=== PATIENT | male | born 1970 | race African-American/Black ===

== ENCOUNTER 2017-12-07 03:25 | Inpatient (IN) | payer OTHER ==
[~2017-12-07] VITALS: Ht 175.3 cm; Wt 189.1 kg
--- NOTE | 2017-12-07 03:45 | NUR ---
PT BBRA C/C OF "SOB X A FEW WEEKS". PT ON NC 4L/M TOP COLLAR BASTER. PT STATES HE IS ON HIS OXYGEN 24HOURS A DAY. PT IS AAOX4. PT STATES HE HAS ON/OFF RESPIRATORY PROBLEMS FOR YEARS NOW. SKIN WNL. RESP EVEN AND UNLABORED. NO S/S OF ACUTE DISTRESS NOTED. PT PLACED ON MONITOR AND POX. PT SAFETY AND COMFORT MEASURES IN PLACE. BEDSIDE FOR EVAL. WILL CONTINUE TO MONITOR PT.
[2017-12-07 04:06] LABS: BASOPHILS % (AUTO) 0.1 % (0.0-2.0); EOSINOPHILS % (AUTO) 1.8 % (0.0-6.0); HEMATOCRIT 35 % (39-51); HEMOGLOBIN 11.1 g/dL (13.5-17.5); LYMPHOCYTES # (AUTO) 0.9 /CMM (0.8-4.8); LYMPHOCYTES % (AUTO) 13.7 % (20.0-44.0); MEAN CORPUSCULAR HGB CONC 32 g/dl (31.0-36.0); MEAN CORPUSCULAR VOLUME 88 fL (80-96); MONOCYTES # (AUTO) 0.7 /CMM (0.1-1.30); MONOCYTES % (AUTO) 10.5 % (2.0-12.0); NEUTROPHILS # (AUTO) 4.7 /CMM (1.8-8.9); NEUTROPHILS % (AUTO) 73.9 % (43.0-81.0); PLATELET COUNT (AUTO) 189 /CMM (150-450); RDW COEFFICIENT OF VARIATION 14.1 (11.5-15.0); RED BLOOD CELL COUNT(AUTO) 3.95 MIL/uL (4.5-6.0); WHITE BLOOD COUNT (AUTO) 6.4 K/uL (4.3-11.0)
[2017-12-07 04:19] LABS: INR 0.97 (0.87-1.13)
[2017-12-07 04:25] LABS: POTASSIUM 3.8 mmol/L (3.5-5.1)
[2017-12-07 04:34] LABS: ALBUMIN 3.3 g/dL (3.4-5.0); BILIRUBIN,DIRECT 0.1 mg/dL (0.0-0.2); BILIRUBIN,TOTAL 0.4 mg/dL (0.2-1.0); TOTAL PROTEIN, SERUM 7.7 g/dL (6.4-8.2)
--- NOTE | 2017-12-07 04:51 | NUR ---
Patient is resting comfortably in bed with eyes closed. Easily aroused. VSS
[2017-12-07 04:56] LABS: TROPONIN I 0.021 ng/mL (0.00-0.056)
[2017-12-07] MEDS ORDERED: LORA10TA7 PO (06:19)
[2017-12-07] MEDS ORDERED: ISOS20TA8 PO (06:19)
[2017-12-07] MEDS ORDERED: BUDE10.2 INH (06:19)
[2017-12-07] MEDS ORDERED: SIME80TA15 PO (06:19)
[2017-12-07] MEDS ORDERED: ACET-73 PO (06:19)
[2017-12-07] MEDS ORDERED: ACET250T3 PO (06:19)
[2017-12-07] MEDS ORDERED: ALPR1TAB2 PO (06:19)
[2017-12-07] MEDS ORDERED: CARV25TA2 PO (06:19)
[2017-12-07] MEDS ORDERED: AMLO2.5T3 PO (06:19)
[2017-12-07] MEDS ORDERED: AMIO200T4 PO (06:19)
[2017-12-07] MEDS ORDERED: HYDR-552 PO (06:19)
[2017-12-07] MEDS ORDERED: ATOR40TA PO (06:19)
[2017-12-07] MEDS ORDERED: FURO40TA5 PO (06:19)
[2017-12-07] MEDS ORDERED: ZOLP10TA2 PO (06:19)
[2017-12-07] MEDS ORDERED: FAMO20TA8 PO (06:19)
[2017-12-07] MEDS ORDERED: LOSA25TA13 PO (06:19)
[2017-12-07] MEDS ORDERED: IPRA3AMP23 IH (06:19)
[2017-12-07] MEDS ORDERED: MONT10TA22 PO (06:19)
--- NOTE | 2017-12-07 06:19 | NUR ---
NO S/S OF DISCOMFORT NOTED. VSS. WILL CONTINUE TO MONITOR PT.
--- NOTE | 2017-12-07 07:10 | NUR ---
report given to mckinley mancera for antonette.
--- NOTE | 2017-12-07 08:23 | NUR ---
REPORT GIVEN TO SHAUNNA KAY FOR DAVIAN
[2017-12-07] MEDS ORDERED: ENOXAPARIN SODIUM 40 MG/0.4 ML DISP.SYRIN SQ SCH ×2 (09:00→09:30)
[2017-12-07] MEDS ORDERED: LEVOFLOXACIN (500MG) 500 MG TABLET PO SCH (09:00)
--- NOTE | 2017-12-07 09:00 | NUR ---
B2B SALES EXECUTIVE OPENING NOTES. PT RECEIVED A&0X3. PT PROVIDED WITH BARIATRIC BED. PT WITH TELE SR 88. PT WITH O2 VIA NC AT 4LPM AND REPORTING SOB AND ORTHOPNEA, SAO2 WNL, LUNGS AUSCULTATED DIMINISHED IN LOWER LOBES AND CRACKLES IN UPPER LEFT. PT REPORTS MODERATE CHEST PAIN, PRN TO BE ADMINISTERED. PT WITH IVC AT L FA INTACT AND SL. PT REFUSING SKIN ASSESSMENT AT THIS TIME, WILL TRY AGAIN AFTER LUNCH. PT ARIELLE BED IN LOWEST LOCKED POSITION IN HIGH [place] AND HARDRAILSX3 AND CALL FREEMAN WITHIN REACH. PT BRIEFED ON TODAY'S POC AND IS WITHOUT CONCERN OR COMPLAINT AT THIS TIME.
[2017-12-07 09:54] LABS: THYROID STIMULATING HORMONE 3.994 uIU/mL (0.358-3.74)
[2017-12-07] MEDS: POTASSIUM CHLORIDE 20 MEQ TAB.PRT.SR PO SCH ×3 (10:02→12:18)
[2017-12-07] MEDS: FUROSEMIDE 40 MG/4 ML VIAL IV SCH ×3 (10:02→17:09)
[2017-12-07] MEDS ORDERED: *INSULIN REGULAR(HUMULIN R)HUM 100 UNIT/ML VIAL SQ PRN (11:30)
[2017-12-07] MEDS ORDERED: DEXTROSE 50%-WATER 50 ML DISP.SYRIN IV PRN (11:30)
[2017-12-07] MEDS: HYDROCODONE/APAP 10/325MG 1 EA TABLET PO PRN ×2 (11:35→17:09)
[2017-12-07] MEDS: BLOOD SUGAR DIAGNOSTIC 1 EACH STRIP VI SCH ×2 (12:18→17:08)
[2017-12-07] MEDS: INSULIN REGULAR, HUMAN 100 UNIT/ML 3 ML VIAL SQ PRN ×2 (12:21→17:13)
--- NOTE | 2017-12-07 12:30 | NUR ---
CAFETERIA CASHIER NOTES. MD EPSTEIN ORDERING D/C AND TRANS TO [facility] PER [facility] CM. REQUESTING CONTINUATION OF ALL MEDS AND NORCO 10/325 Q4 PRN. ORDERS PLACED.
[2017-12-07] MEDS ORDERED: SYMBICORT INH SCH (13:30)
[2017-12-07] MEDS ORDERED: ALPRAZOLAM 1 MG TABLET PO PRN (13:30)
[2017-12-07] MEDS ORDERED: HYDROCODONE/APAP 5/325MG 1 EACH TABLET PO PRN (13:30)
[2017-12-07] MEDS ORDERED: ACETAMINOPHEN ES 500 MG TABLET PO PRN (13:30)
[2017-12-07] MEDS: IPRATROPIUM NEB FS 0.5 MG/2.5 ML AMPUL.NEB NEB SCH ×4 (13:30→19:35)
[2017-12-07] MEDS: ALBUTEROL FS 2.5 MG/0.5 ML VIAL.NEB NEB SCH ×2 (13:40→19:34)
[2017-12-07] MEDS: ALBUTEROL FS 2.5 MG/3 ML VIAL.NEB NEB SCH ×2 (14:05→19:34)
[2017-12-07] MEDS ORDERED: FUROSEMIDE 40 MG TABLET PO SCH (17:00)
[2017-12-07] MEDS ORDERED: FAMOTIDINE (20 MG) 20 MG TABLET PO SCH (17:00)
[2017-12-07] MEDS ORDERED: acetaZOLAMIDE 250 MG TABLET PO SCH (17:00)
[2017-12-07] MEDS ORDERED: ISOSORBIDE DINITRATE (20MG) 20 MG TABLET PO SCH (17:00)
--- NOTE | 2017-12-07 19:36 | NUR ---
MSRN D/C PACKETS PREPARED AND PROVIDED TO RN TO GET SIGNATURES AT D/C. ALL DAY NURSE DUTIES ATTENDED TO AND PT IS WITHOTU CONCERN OR COMPLAINT. P/UP TIME 0730, AMBULANCE LATE. NIGHT NURSE TO COMPLETE TRANS. REPORT CALLED TO KENNETH 1800.
[2017-12-07 20:00] VITALS: BP 131/53
--- NOTE | 2017-12-07 20:00 | NUR ---
ASSOCIATE RELATIONS SPECIALIST NOTES RECEIVED AWAKE A/OX4. NOT IN ANY DISTRESS. NO SOB NOTED. DENIES ANY PAIN OR DISCOMFORT AT THIS TIME. WITH IV-HL PATENT & INTACT. PT FOR TRANSFER TO [facility] ROOM 558A. REPORT GIVEN BY AM RN TO KENNETH KAY FROM [facility]. CALL LIGHT WITHIN REACH. BED IN LOWEST POSITION. SR UP X 3 FOR SAFETY. WILL CONTINUE TO MONITOR.
[2017-12-07] MEDS ORDERED: CARVEDILOL 12.5 MG TABLET PO SCH (21:00)
--- NOTE | 2017-12-07 21:20 | NUR ---
PATIENT SUPPORT ASSOCIATE NOTES AMBULANCE CAME IN TO BUNCH BREAKER MACHINE OPERATOR PT. PT NOT IN ANY DISTRESS. NO SOB NOTED. DENIES ANY PAIN OR DISCOMFORT AT THIS TIME. WITH IV-HL PATENT & INTACT. VSS. AFEBRILE. PT REFUSING TO HAVE BODY CHECK. BELONGINGS SENT WITH PT. REPORT GIVEN TO AMBULANCE PERSONNEL FOR CONTINUITY OF CARE. PT LEFT THE FACILITY IN FAIR & STABLE CONDITION.
[2017-12-07] MEDS ORDERED: ZOLPIDEM TARTRATE 10 MG TABLET PO SCH (22:00)
[2017-12-08] MEDS ORDERED: AMLODIPINE BESYLATE 2.5 MG TABLET PO SCH (09:00)
[2017-12-08] MEDS ORDERED: LOSARTAN POTASSIUM 25 MG TABLET PO SCH (09:00)
[2017-12-08] MEDS ORDERED: ATORVASTATIN 40 MG TABLET PO SCH (09:00)
[2017-12-08] MEDS ORDERED: AMIODARONE HCL 200 MG TABLET PO SCH (09:00)
[2017-12-08] MEDS ORDERED: SIMETHICONE 80 MG TAB.CHEW PO PRN (09:00)
[2017-12-08] MEDS ORDERED: MONTELUKAST SODIUM (10MG) 10 MG TABLET PO SCH (09:00)
[2017-12-08] MEDS ORDERED: LORATADINE 10 MG TABLET PO SCH (09:00)
== END 2017-12-07 21:20 | disposition short-term general hospital (02) | DRG 139 ==
LOC: ER 03:31 → TELE 07:30
PROVIDERS: ADMIT Internal Medicine; ATTEND Internal Medicine
DX: J15.9 Unspecified bacterial pneumonia (principal); I50.23 Acute on chronic systolic (congestive) heart failure; I27.81 Cor pulmonale (chronic); Z99.81 Dependence on supplemental oxygen; Z68.44 Body mass index [BMI] 60.0-69.9, adult; J44.0 Chronic obstructive pulmonary disease with (acute) lower respiratory infection; I48.0 Paroxysmal atrial fibrillation; E66.01 Morbid (severe) obesity due to excess calories; J44.1 Chronic obstructive pulmonary disease with (acute) exacerbation; I11.0 Hypertensive heart disease with heart failure; E11.9 Type 2 diabetes mellitus without complications; K21.9 Gastro-esophageal reflux disease without esophagitis; G47.33 Obstructive sleep apnea (adult) (pediatric); F17.200 Nicotine dependence, unspecified, uncomplicated; F41.9 Anxiety disorder, unspecified; G47.00 Insomnia, unspecified; Z88.6 Allergy status to analgesic agent; R07.89 Other chest pain
CPT/HCPCS: 36415; 71045-TC; 80048-TC; 80061-TC; 80076-TC; 82306; 82728-TC; 82962-TC; 83540-TC; 83605-TC; 83880; 84439-TC; 84443-TC; 84484-TC; 85025-TC; 85730-TC; 87040-TC; 87081-TC; 93307-TC; A4606; J1650; J1815; J1940; Z7610

== ENCOUNTER 2018-05-09 10:52 | Inpatient (IN) | payer OTHER ==
[~2018-05-09] VITALS: Ht 177.8 cm; Wt 225.4 kg
[2018-05-09] VITALS (21 sets, daily range): BP systolic 105–176; BP diastolic 39–98
[~2018-05-09 10:52] MED LIST: ACET-73 PO; ACET250T3 PO; ALPR1TAB2 PO; AMIO200T4 PO; AMLO2.5T3 PO; ATOR40TA PO; BUDE10.2 INH; CARV25TA2 PO; FAMO20TA8 PO; FURO40TA5 PO; HYDR-4384 PO; IPRA3AMP23 IH; ISOS20TA8 PO; LORA10TA7 PO; LOSA25TA27 PO; MONT10TA22 PO; SIME80TA15 PO; ZOLP10TA2 PO
--- NOTE | 2018-05-09 11:17 | NUR ---
Pt placed on BiPAP per MD order. BiPAP is plugged into a red outlet, alarms are set and audible, and BMV is at bedside. Addendum: 05/09/18 at 1353 by YAMILETH STONE RT Amended: Links added.
[2018-05-09] MEDS ORDERED: methylPREDNISolone SOD SUCC 125 MG/2ML VIAL ONE (11:29)
[2018-05-09] MEDS ORDERED: methylPREDNISolone SOD SUCC 125 MG/2ML VIAL IV ONE (11:30)
[2018-05-09] MEDS ORDERED: ALBUTEROL FS 2.5 MG/3 ML VIAL.NEB NEB ONE (11:30)
[2018-05-09] MEDS ORDERED: IPRATROPIUM NEB FS 0.5 MG/2.5 ML AMPUL.NEB NEB ONE (11:30)
[2018-05-09 11:38] LABS: BASOPHILS # (AUTO) 0.2 /CMM (0.0-0.2); BASOPHILS % (AUTO) 2.8 % (0.0-2.0); EOSINOPHILS % (AUTO) 1.7 % (0.0-6.0); HEMATOCRIT 31 % (39-51); HEMOGLOBIN 9.8 g/dL (13.5-17.5); LYMPHOCYTES # (AUTO) 0.8 /CMM (0.8-4.8); LYMPHOCYTES % (AUTO) 11.6 % (20.0-44.0); MEAN CORPUSCULAR HGB CONC 32 g/dl (31.0-36.0); MEAN CORPUSCULAR VOLUME 89 fL (80-96); MONOCYTES # (AUTO) 0.6 /CMM (0.1-1.30); MONOCYTES % (AUTO) 9.6 % (2.0-12.0); NEUTROPHILS # (AUTO) 4.9 /CMM (1.8-8.9); NEUTROPHILS % (AUTO) 74.3 % (43.0-81.0); PLATELET COUNT (AUTO) 182 /CMM (150-450); RED BLOOD CELL COUNT(AUTO) 3.43 MIL/uL (4.5-6.0); WHITE BLOOD COUNT (AUTO) 6.6 K/uL (4.3-11.0)
[2018-05-09] MEDS ORDERED: PROPOFOL 100 ML ONE (11:39)
[2018-05-09 11:54] LABS: ABG BASE EXCESS 12.3 mmol/L; ABG OXYGEN SATURATION 88.8 % (92.0-98.5); ABG PCO2 81.1 mmHg (35.0-45.0); ABG PH 7.321 (7.350-7.450); ABG PO2 64.8 mmHg (75.0-100.0); AaDO2 127.1 mmHg; COHb 0.9 % (0.5-1.5); MetHb 0.4 % (0.0-1.5); O2Hb 87.6 % (94.0-97.0); SITE, ABG Left Brachial; VENT MODE, BG bipap 22/10 40% RR 20
[2018-05-09 12:01] LABS: ALANINE AMINOTRANSFERASE 24 U/L (12-78); ALBUMIN 3.4 g/dL (3.4-5.0); ALKALINE PHOSPHATASE 106 U/L (46-116); ASPARTATE AMINOTRANSFERASE 34 U/L (15-37); B-TYPE NATRIURETIC PEPTIDE 222 PG/ML (0-125); BILIRUBIN,DIRECT 0.2 mg/dL (0.0-0.2); BILIRUBIN,TOTAL 0.6 mg/dL (0.2-1.0); CALCIUM, SERUM 8.8 mg/dL (8.5-10.1); CHLORIDE 94 mmol/L (98-107); CREATININE 1.3 mg/dL (0.6-1.3); GLUCOSE 193 mg/dL (74-106); POTASSIUM 4.6 mmol/L (3.5-5.1); SODIUM SERUM 135 mmol/L (136-145); TOTAL PROTEIN, SERUM 8.3 g/dL (6.4-8.2); UREA NITROGEN, BLOOD 26 mg/dL (7-18)
[2018-05-09] MEDS ORDERED: ALBUTEROL FS 2.5 MG/3 ML VIAL.NEB ONE (12:07)
[2018-05-09] MEDS ORDERED: IPRATROPIUM NEB FS 0.5 MG/2.5 ML AMPUL.NEB ONE (12:07)
[2018-05-09 12:13] LABS: CARBON DIOXIDE 43 mmol/L (21-32)
--- NOTE | 2018-05-09 12:15 | NUR ---
PATIENT ARRIVED TO ER VIA STRETCHER AT 1055, PATIENT ON NON-EBREATHER MASK, 15 L. PATIENT PLACED ON 2 L NASAL CANNULA DUE TO COPD HX, PATIENT POSITIONED 90 DEGREES . PATIENT PLACED ON BIPAP PER DR PALM ORDERS AT 1102. SPO2 WNL. UNABLE TO OBTAIN IV LINE TILL 1130, ABLE TO START IV ON RIGHT UPPER ARM GAUGE 20, LABS COLLECTED 1139- DR RIGGS AT BEDSIDE GUZMAN CATHETER INSERTED PER ORDERS AT 1159
[2018-05-09] MEDS ORDERED: FUROSEMIDE 40 MG/4 ML VIAL ONE (12:20)
[2018-05-09] MEDS ORDERED: NITROGLYCERIN PACKET 1 GM PACKET ONE (12:21)
[2018-05-09] MEDS ORDERED: FUROSEMIDE 40 MG/4 ML VIAL IV ONE (12:30)
[2018-05-09] MEDS ORDERED: NITROGLYCERIN PACKET 1 GM PACKET TD ONE (12:30)
--- NOTE | 2018-05-09 12:30 | NUR ---
PAGED DR EPSTEIN REGARDING ADMIT FOR THIS PATIENT
[2018-05-09 12:41] LABS: ABG OXYGEN SATURATION 94.4 % (92.0-98.5); ABG PCO2 65.5 mmHg (35.0-45.0); ABG PH 7.301 (7.350-7.450); ABG PO2 95.2 mmHg (75.0-100.0); AaDO2 114.7 mmHg; COHb 0.8 % (0.5-1.5); MetHb 0.3 % (0.0-1.5); O2Hb 93.4 % (94.0-97.0); SITE, ABG Right Radial; VENT MODE, BG 22/10 BUR 20 PS12
--- NOTE | 2018-05-09 12:42 | NUR ---
ADMIT 254- ICU
--- NOTE | 2018-05-09 13:51 | NUR ---
Pt placed on BiPAP per MD order. Bipap is plugged into a red outlet, alarms are set and audible, and BMV is at bedside.
--- NOTE | 2018-05-09 14:25 | NUR ---
Pt transferred from ED to ICU. Pt remains on BiPAP. BiPAP is plugged into a red outlet, alarms are set and audible, and BMV is at bedside.
--- NOTE | 2018-05-09 14:27 | NUR ---
PATIENT TRANSFERRED TO ICU, REPORT GIVEN TO LJ KAY GUZMAN CATHETER OUTPUT 2500 PRIOR TO TRANSFER TO ICU NONLABORE BREATHING NOTED ON BIPAP. IV LINE ON RIGHT UPPER ARM GAUGE 20 PATENT AND INTACT. GUZMAN CATHETER DRAINING CLEAR YELLOW URINE. PATIENT WAKING UP INTERMITTENTLY THROUGHT STAY IN ER, REORIENTED TO PLACE, ENVIRONMENT, AND SITUATION
[2018-05-09] MEDS ORDERED: ALBUTEROL FS 2.5 MG/0.5 ML VIAL.NEB NEB PRN (14:30)
[2018-05-09] MEDS ORDERED: HYDROCODONE/APAP 5/325MG 1 EACH TABLET PO PRN (14:30)
[2018-05-09] MEDS ORDERED: LEVOFLOXACIN 500 MG /D5W 100ML 500 MG in PREMIX 1 EA IV SCH (14:30)
[2018-05-09] MEDS ORDERED: IPRATROPIUM NEB FS 0.5 MG/2.5 ML AMPUL.NEB NEB PRN (14:30)
[2018-05-09] MEDS: methylPREDNISolone SOD SUCC 40 MG/ML VIAL IV SCH ×2 (14:32→16:57)
[2018-05-09] MEDS: FUROSEMIDE 20 MG/2 ML VIAL IV SCH ×2 (14:32→16:57)
--- NOTE | 2018-05-09 14:48 | NUR ---
RN NOTE 1430: Admitted 47 y/o male patient from ED. Obese, lethargic and on Bipap. 92% O2 sat on Bipap, will continue on Bipap for now. With Right buttock wound noted, unable to take good picture and unable to measure, patient is difficult to turn at this time and not too stable to turn fully, noted with increase WOB and desat. With John cath intact, noted with >2000mL from ER. Given another 20mg Lasix per admitting MD's order. 1445: Dr. Toribio called and given more orders, Lovenox 40 SQ daily and start on moderate sliding scale. MD aware patient still NPO for now, still on Bipap, patient lethargic. SBP 160's and unable to give PO meds, MD aware patient on Nitro paste. No new order at this time. Awaiting for midline nurse.
[2018-05-09] MEDS ORDERED: DEXTROSE 50%-WATER 50 ML DISP.SYRIN IV PRN (15:00)
[2018-05-09] MEDS ORDERED: CEFTRIAXONE 1 G in IV D5W 50 ML IV SCH (15:00)
[2018-05-09] MEDS: ALBUTEROL FS 2.5 MG/0.5 ML VIAL.NEB NEB SCH ×2 (15:40→19:46)
[2018-05-09] MEDS: IPRATROPIUM NEB FS 0.5 MG/2.5 ML AMPUL.NEB NEB SCH ×2 (15:40→19:46)
--- NOTE | 2018-05-09 15:45 | NUR ---
Pt intubated and placed on a mechanical vent. Pt 7.5 ETT is secured at 23cm at the lip. Vent settings AC 16 600 100 +5. Vent is plugged into a red outlet, alarms are set and audible, and BMV is at bedside. Addendum: 05/09/18 at 1608 by YAMILETH STONE RT Amended: Links added.
--- NOTE | 2018-05-09 15:46 | NUR ---
1500: S/E by Dr. Tan, patient unresponsive, with pinpoint pupils. MD ordered for rapid intubation. 1540: Successfully intubated by Dr. Damon. given Etomidate 30 and Wally 80. Awaiting stat CXR. Placed right NGT. Placed on AUTOMOTIVE HARDWARE ENGINEER restraints for safety. Noted with mild movement. Awaiting Diprivan from pharmacy.
[2018-05-09] MEDS ORDERED: PROPOFOL 100 ML IV PRN (16:00)
--- NOTE | 2018-05-09 16:31 | NUR ---
ETT pushed in 3cm per MD order. ETT was at 23cm and now is secured at 26cm at the lip.
[2018-05-09] MEDS ORDERED: ROCURONIUM BROMIDE 50 MG/5 ML IV ONE (16:41)
[2018-05-09] MEDS ORDERED: ETOMIDATE 2 MG/ML VIAL IV ONE ×2 (16:41→18:07)
[2018-05-09 16:45] LABS: ABG BASE EXCESS 11.9 mmol/L; ABG OXYGEN SATURATION 96.3 % (92.0-98.5); ABG PCO2 72.1 mmHg (35.0-45.0); ABG PH 7.359 (7.350-7.450); ABG PO2 99.8 mmHg (75.0-100.0); AaDO2 541.1 mmHg; COHb 0.6 % (0.5-1.5); MetHb 0.3 % (0.0-1.5); O2Hb 95.4 % (94.0-97.0); SITE, ABG Right Radial; VENT MODE, BG AC 16 600 100 +5
[2018-05-09] MEDS: ISOSORBIDE DINITRATE (20MG) 20 MG TABLET PO SCH (16:57)
[2018-05-09] MEDS: ENOXAPARIN SODIUM 40 MG/0.4 ML DISP.SYRIN SQ SCH (16:58)
[2018-05-09] MEDS ORDERED: FAMOTIDINE (20 MG) 20 MG TABLET PO SCH (17:00)
[2018-05-09] MEDS: PROPOFOL 100 ML IV PRN ×5 (17:40→23:45)
[2018-05-09] MEDS: BLOOD SUGAR DIAGNOSTIC 1 EACH STRIP VI SCH ×2 (18:00→22:49)
--- NOTE | 2018-05-09 19:00 | NUR ---
RN NOTE RECEIVED PT IN NO ACUTE DISTRESS IN BED. PT IS SEDATED ON PROPOFOL. PT IS ON MECHANICAL VENT VIA ETT THAT IS CLEAN DRY AND INTACT. ETT IS 7.5/26 AT THE LIP. PT TOLERATING VENT SETTING AT AC 16, TV 600, FIO2 80%, PEEP 5. PT HAS NGTUBE THAT IS CLEAN DRY INTACT AND PATENT WITH FREE WATER FLUSH. PT HAS GUZMAN CATH THAT IS CLEAN DRY INTACT AND PATENT WITH CLEAR YELLOW URINE DRAINING. PT HAS GIGI MIDLINE THAT IS CLEAN DRY INTACT AND PATENT WITH PROPOFOL @ 60 MCG/MIN. PT HAS PARIS 20G THAT IS CLEAN DRY INTACT AND PATENT WITH SALINE FLUSH. BED IN LOW LOCK POSITION WITH RAILS UP X 2. CALL LIGHT WITHIN REACH AND ALL SAFETY MEASURES ENSURED AND CARRIED OUT. WILL CONTINUE TO MONITOR PT. PER REPORT [facility] BECAUSE PT IS >250 LBS
--- NOTE | 2018-05-09 19:49 | NUR ---
pt received on vent via ett with charted settings. airway patent. secure via anchor fast. pt sedated ambu bag at bedside. alarms set and audible, disconnect alarms checked plugged into red outlet suctioned a small amount of thick white secretions. pt receiving breathing tx q4 at this time. pt hob at 30 degrees. suctioned oral secretion from pts mouth Addendum: 05/09/18 at 1950 by MARY GARCIA RT Amended: Links added.
--- NOTE | 2018-05-09 22:22 | NUR ---
rt assisted pt transfer to large bed Addendum: 05/09/18 at 2222 by MARY GARCIA RT Amended: Links added.
--- NOTE | 2018-05-09 22:22 | NUR ---
RN NOTE [facility] PT TOLERATED WELL.
[2018-05-09] MEDS: *INSULIN REGULAR(HUMULIN R)HUM 100 UNIT/ML VIAL SQ PRN (22:51)
[2018-05-10] VITALS (55 sets, daily range): BP systolic 110–169; BP diastolic 48–95
[2018-05-10] MEDS: PROPOFOL 100 ML IV PRN ×14 (01:24→23:54)
[2018-05-10] MEDS: IPRATROPIUM NEB FS 0.5 MG/2.5 ML AMPUL.NEB NEB SCH ×4 (01:46→19:57)
[2018-05-10 04:45] LABS: BASOPHILS % (AUTO) 0.2 % (0.0-2.0); HEMATOCRIT 30 % (39-51); HEMOGLOBIN 9.8 g/dL (13.5-17.5); LYMPHOCYTES # (AUTO) 0.5 /CMM (0.8-4.8); LYMPHOCYTES % (AUTO) 7.7 % (20.0-44.0); MEAN CORPUSCULAR HGB CONC 33 g/dl (31.0-36.0); MEAN CORPUSCULAR VOLUME 90 fL (80-96); MONOCYTES # (AUTO) 0.2 /CMM (0.1-1.30); MONOCYTES % (AUTO) 3.2 % (2.0-12.0); NEUTROPHILS # (AUTO) 5.8 /CMM (1.8-8.9); NEUTROPHILS % (AUTO) 88.9 % (43.0-81.0); PLATELET COUNT (AUTO) 163 /CMM (150-450); WHITE BLOOD COUNT (AUTO) 6.5 K/uL (4.3-11.0)
[2018-05-10 04:52] LABS: CALCIUM, SERUM 8.9 mg/dL (8.5-10.1); CREATININE 1.2 mg/dL (0.6-1.3); POTASSIUM 4.3 mmol/L (3.5-5.1)
--- NOTE | 2018-05-10 06:37 | NUR ---
RN NOTE PT REMAINS IN NO ACUTE DISTRESS IN BED. PT DID NOT HAVE ANY SIGNIFICANT CHANGE IN CONDITION DURING SHIFT. PT TOLERATED VENT SETTING WELL. PT REMAINS SEDATED ON PROPOFOL @ 60 MCG. ALL NEEDS MET, ALL ORDERS CARRIED OUT. WILL ENDORSE CARE TO AM RN FOR CONTINUITY OF CARE.
--- NOTE | 2018-05-10 07:35 | NUR ---
TURBINE BLADE ASSEMBLER RECEIVED PATIENT FORM THE PREVIOUS SHIFT. PATIENT IS IN BED. SEDATED ON DIPRIVAN. ORALLY INTUBATED. NO ACUTE DISTRESS. GUZMAN DRAINING URINE TO GRAVITY. 80% FIO2 ON VENT. WILL CONTINUE TO MONITOR AND PROVIDE CARE.
[2018-05-10] MEDS: ALBUTEROL FS 2.5 MG/0.5 ML VIAL.NEB NEB SCH ×3 (07:46→19:57)
--- NOTE | 2018-05-10 07:47 | NUR ---
RT PATIENT REC'D ORALLY INTUBATED ON [facility] VENT WITH ORDERED SETTINGS JON WELL. VENT ALARMS CHECKED + AUDIBLE. CUFF PRESSURE CHECKED PLASTIC OUTFITTER. PATIENT AIRWAY SUCTIONED AND PATENT WITH SMALL AMOUNT OF PALE SEMITHICK SECRETIONS. B/S DIM. PATIENT SEDATED AND IN NO DISTRESS AT THIS TIME. AMBU BAG AT [facility]. Addendum: 05/10/18 at 1016 by VANCE GOLDEN RT Amended: Links added.
--- NOTE | 2018-05-10 07:56 | NUR ---
WOUND CARE CONSULT: PT INTUBATED AND UNSTABLE TO BE TURNED FOR SKIN ASSESSMENT AT THIS TIME. RECOMMENDATIONS MADE FOR SKIN PROTECTION AND DISCUSSED WITH NURSING STAFF. PT ON BARIMAX BED WITH ETS AIR. WILL SEE PT PT CONDITION PERMITS. Addendum: 05/10/18 at 1044 by VIV SHUKLA WNDNU PER NURSING DOCUMENTATION PT HAS PURULENT WOUND TO RT BUTTOCK, PRESENT ON ADMISSION. RECOMMEND SURGICAL CONSULT. DISCUSSED WITH NURSING STAFF.
--- NOTE | 2018-05-10 08:01 | NUR ---
HAIR SAMPLE MATCHER DISCUSSED WITH THE WOUND CARE NURSE AND RT REGARDING PATIENT CURRENT HEALTH STATUS AND INABILITY TO TURN FOR SACRAL/ BUTTOCK WOUND ASSESSMENT DUE TO HIGH RISK FOR RESPIRATORY COMPLICATIONS. PATIENT IS ON 80% FIO2 AT THIS TIME. WILL CLOSELY MONITOR.
[2018-05-10 08:28] LABS: ABG BASE EXCESS 15.9 mmol/L; ABG OXYGEN SATURATION 93.1 % (92.0-98.5); ABG PCO2 63.9 mmHg (35.0-45.0); ABG PH 7.441 (7.350-7.450); AaDO2 432.3 mmHg; COHb 0.3 % (0.5-1.5); MetHb 0.6 % (0.0-1.5); O2Hb 92.3 % (94.0-97.0); SITE, ABG Right Radial
[2018-05-10] MEDS: BLOOD SUGAR DIAGNOSTIC 1 EACH STRIP VI SCH ×4 (08:32→22:10)
[2018-05-10] MEDS: *INSULIN REGULAR(HUMULIN R)HUM 100 UNIT/ML VIAL SQ PRN ×2 (08:33→22:12)
[2018-05-10] MEDS: methylPREDNISolone SOD SUCC 40 MG/ML VIAL IV SCH ×3 (08:45→16:12)
[2018-05-10] MEDS: FUROSEMIDE 20 MG/2 ML VIAL IV SCH ×2 (08:45→16:12)
[2018-05-10] MEDS: MONTELUKAST SODIUM (10MG) 10 MG TABLET PO SCH (08:46)
[2018-05-10] MEDS: LOSARTAN POTASSIUM 25 MG TABLET PO SCH (08:46)
[2018-05-10] MEDS: ISOSORBIDE DINITRATE (20MG) 20 MG TABLET PO SCH ×3 (08:46→16:12)
[2018-05-10] MEDS: AMIODARONE HCL 200 MG TABLET PO SCH (08:46)
[2018-05-10] MEDS: ATORVASTATIN 40 MG TABLET PO SCH (08:46)
[2018-05-10] MEDS: AMLODIPINE BESYLATE 2.5 MG TABLET PO SCH (08:46)
--- NOTE | 2018-05-10 10:00 | NUR ---
BRYOLOGIST RECEIVED PATIENT IN BED, SEDATED ON DIPRIVAN. ORALLY INTUBATED. NO ACUTE DISTRESS. GUZMAN DRAINING URINE TO GRAVITY. 80% FIO2 ON VENT. WILL CONTINUE TO MONITOR AND PROVIDE CARE.
--- NOTE | 2018-05-10 10:15 | NUR ---
CRYSTAL REPORT DEVELOPER RESTORATION ECOLOGIST RECOMMENDED TO HOLD OFF ON SEDATION VACATION DUE TO HIGH RISK FOR RESPIRATORY FAILURE/ SELF EXTUBATION. PHARMACIST AND CHARGE NURSE AWARE.
[2018-05-10] MEDS: INSULIN GLARGINE, 100 UNIT/ML CARTRIDGE SQ SCH (10:49)
--- NOTE | 2018-05-10 11:00 | NUR ---
RN NOTES PT SEEN BY WOUND CARE OFFICE ADMINISTRATIVE ASSISTANT WITH ORDERS CONTINUE TO MONITOR AT THIS TIME
[2018-05-10] MEDS: INSULIN REGULAR, HUMAN 100 UNIT/ML 3 ML VIAL SQ PRN ×2 (13:10→17:30)
[2018-05-10] MEDS ORDERED: LIDOCAINE 2%-EPI 1:100,000 30 ML VIAL TP ONE (14:30)
[2018-05-10] MEDS ORDERED: SILVER NITRATE APPLICATOR 1 EA BOX TP ONE (15:00)
--- NOTE | 2018-05-10 15:00 | NUR ---
RN NOTES NOTIFIED WOUND CARE OIL RECOVERY OPERATOR THAT PER GRAIN OILSEED OR PASTURE FARM MANAGER PT NOT STABLE TO HAVE WOUND DEBRIDEMENT AT THIS TIME AND WILL NOTIFY WHEN CLEARED BY PULMONOLOGY
[2018-05-10] MEDS: CEFTRIAXONE 2 G in IV D5W 100 ML IV SCH (15:22)
--- NOTE | 2018-05-10 19:12 | NUR ---
SAUSAGE STRINGER PATIENT IN BED, SEDATED ON DIPRIVAN. ORALLY INTUBATED NOTED 26 CM AT THE LIP. NO ACUTE DISTRESS. GUZMAN DRAINING URINE TO GRAVITY. 80% FIO2 ON VENT. WILL CONTINUE TO MONITOR AND ENDORSE TO NEXT SHIFT FOR CONTINUIY OF CARE
[2018-05-10] MEDS: ENOXAPARIN SODIUM 40 MG/0.4 ML DISP.SYRIN SQ SCH (22:04)
--- NOTE | 2018-05-10 23:19 | NUR ---
SPAR FINISHER NOTES - NICHOLAS CLARIFICATION SPOKE TO PHARMACY, [facility], REGARDING ISSUE WITH RATE OF DIPRIVAN DRIP. PREVIOUS WEIGHT ON [facility] BED WAS 187 KG, HOWEVER, AFTER TRANSFER TO [facility] BED, NEW WEIGHT IS 250KG. PATIENT SEDATED @ 60MCG/KG/MIN, BUT AT WEIGHT OF 187 ON IV PUMP. CLARIFIED WITH [facility] THAT PATIENT SHOULD RECEIVE THE SAME RATE (ML/HR) SO THAT PATIENT WILL NOT BE OVERSEDATED. IV PUMP RECONFIGURED TO PROPER WEIGHT, NOW INFUSING @ 45MCG/KG/MIN. WILL MONITOR CLOSELY AND TITRATE ACCORDINGLY
[2018-05-11] VITALS (67 sets, daily range): BP systolic 124–168; BP diastolic 57–103
[2018-05-11] MEDS: PROPOFOL 100 ML IV PRN ×12 (01:11→22:18)
[2018-05-11] MEDS: IPRATROPIUM NEB FS 0.5 MG/2.5 ML AMPUL.NEB NEB SCH ×4 (01:40→19:21)
[2018-05-11 04:48] LABS: BASOPHILS % (AUTO) 0.3 % (0.0-2.0); HEMATOCRIT 31 % (39-51); HEMOGLOBIN 10.1 g/dL (13.5-17.5); LYMPHOCYTES # (AUTO) 0.5 /CMM (0.8-4.8); LYMPHOCYTES % (AUTO) 6.5 % (20.0-44.0); MEAN CORPUSCULAR HGB CONC 33 g/dl (31.0-36.0); MEAN CORPUSCULAR VOLUME 91 fL (80-96); MONOCYTES # (AUTO) 0.7 /CMM (0.1-1.30); MONOCYTES % (AUTO) 8.1 % (2.0-12.0); NEUTROPHILS % (AUTO) 85.1 % (43.0-81.0); PLATELET COUNT (AUTO) 192 /CMM (150-450); RED BLOOD CELL COUNT(AUTO) 3.42 MIL/uL (4.5-6.0); WHITE BLOOD COUNT (AUTO) 8.2 K/uL (4.3-11.0)
[2018-05-11 04:59] LABS: CALCIUM, SERUM 7.8 mg/dL (8.5-10.1); CREATININE 1.1 mg/dL (0.6-1.3); POTASSIUM 4.1 mmol/L (3.5-5.1)
--- NOTE | 2018-05-11 06:31 | NUR ---
PATIENT RECEIVED ORALLY INTUBATED ON [facility] VENT WITH ORDERED SETTINGS TOLERATED WELL. VENT ALARMS CHECKED & AUDIBLE. CUFF PRESSURE CHECKED FINISHING RANGE OPERATOR. PATIENT AIRWAY SUCTIONED AND PATENT WITH SMALL AMOUNT OF PALE SEMI-THICK SECRETIONS. B/S DIM. PATIENT SEDATED AND IN NO DISTRESS AT THIS TIME. AMBU BAG AT [facility].
--- NOTE | 2018-05-11 07:00 | NUR ---
FOOD SERVICE AMBASSADOR CLOSING NOTES PATIENT REMAINS ORALLY INTUBATED, SEDATED ON DIPRIVAN @ 45MCG/KG/MIN. WILL ENDORSE THE PATIENT TO JUANITO AM SHIFT NURSE FOR CONTINUITY OF CARE
[2018-05-11] MEDS: ALBUTEROL FS 2.5 MG/0.5 ML VIAL.NEB NEB SCH ×3 (07:39→19:21)
[2018-05-11] MEDS: BLOOD SUGAR DIAGNOSTIC 1 EACH STRIP VI SCH ×4 (07:57→22:03)
[2018-05-11] MEDS: INSULIN REGULAR, HUMAN 100 UNIT/ML 3 ML VIAL SQ PRN ×2 (07:57→11:33)
[2018-05-11] MEDS: ISOSORBIDE DINITRATE (20MG) 20 MG TABLET PO SCH ×3 (08:10→16:34)
[2018-05-11] MEDS: methylPREDNISolone SOD SUCC 40 MG/ML VIAL IV SCH ×3 (08:10→16:33)
[2018-05-11] MEDS: MONTELUKAST SODIUM (10MG) 10 MG TABLET PO SCH (08:10)
[2018-05-11] MEDS: FUROSEMIDE 20 MG/2 ML VIAL IV SCH ×2 (08:10→16:33)
[2018-05-11] MEDS: LOSARTAN POTASSIUM 25 MG TABLET PO SCH (08:10)
[2018-05-11] MEDS: ATORVASTATIN 40 MG TABLET PO SCH (08:10)
[2018-05-11] MEDS: AMLODIPINE BESYLATE 2.5 MG TABLET PO SCH ×2 (08:11→09:16)
[2018-05-11] MEDS: AMIODARONE HCL 200 MG TABLET PO SCH (08:11)
[2018-05-11] MEDS: INSULIN GLARGINE, 100 UNIT/ML CARTRIDGE SQ SCH (08:14)
[2018-05-11] MEDS ORDERED: INSULIN GLARGINE, 100 UNIT/ML CARTRIDGE SQ SCH (09:00)
[2018-05-11] MEDS ORDERED: INSULIN GLARGINE, 100 UNIT/ML CARTRIDGE SQ ONE (09:00)
--- NOTE | 2018-05-11 09:02 | NUR ---
received pt from day shift, sedated on Diprivan at 45mcg, SR, BBB, on the vent, intubated, lungs congested, no edema, NG clamped, f/c good output, v/s stable, no pain, pt turned and repositioned, seen by Dr Toribio.
[2018-05-11 09:26] LABS: ABG BASE EXCESS 12.1 mmol/L; ABG OXYGEN SATURATION 92.7 % (92.0-98.5); ABG PCO2 57.1 mmHg (35.0-45.0); ABG PH 7.441 (7.350-7.450); ABG PO2 72.9 mmHg (75.0-100.0); AaDO2 437.6 mmHg; COHb 0.3 % (0.5-1.5); MetHb 0.7 % (0.0-1.5); O2Hb 91.8 % (94.0-97.0); PEEP,BG 5 cm H2O; SITE, ABG Right Radial; VT, ABG 600 mL
--- NOTE | 2018-05-11 12:19 | NUR ---
pt sedated on Diprivan at 40mcg, v/s stable, no pain, wound debridement done at the bedside, pt turned and repositioned.
[2018-05-11] MEDS: DAKINS QUARTER STRENGTH (0.125%) 480 ML BOTTLE TOP SCH (12:39)
[2018-05-11] MEDS: CEFTRIAXONE 2 G in IV D5W 100 ML IV SCH (14:10)
--- NOTE | 2018-05-11 16:22 | NUR ---
pt sedated on Diprivan at 40mcg, v/s stable, no pain, restraints on, pt cleaned, changed and repositioned q2hrs.
[2018-05-11] MEDS: *INSULIN REGULAR(HUMULIN R)HUM 100 UNIT/ML VIAL SQ PRN ×2 (16:48→22:09)
--- NOTE | 2018-05-11 19:22 | NUR ---
RECEIVED PT INTUBATED ON MECHANICAL VENT WITH NOTED SETTINGS WITH 7.5 ETT SECURED @ 26 CM AT THE LIP. PT TOLERATING VENT SETTINGS. PT IS SEDATED AND NO RESPIRATORY DISTRESS NOTED AT THIS TIME. SUCTIONED SMALL AMT OF THICK WHITE SECRETIONS. CUFF PRESSURE CHECKED EMAIL DEVELOPER. VENT ALARMS SET AND AUDIBLE. AMBU BAG AT BEDSIDE. VENT PLUGGED INTO RED OUTLET. WILL CONTINUE TO MONITOR.
[2018-05-11] MEDS: ENOXAPARIN SODIUM 40 MG/0.4 ML DISP.SYRIN SQ SCH (22:03)
[2018-05-12] VITALS (47 sets, daily range): BP systolic 114–172; BP diastolic 62–103
[2018-05-12] MEDS: PROPOFOL 100 ML IV PRN ×11 (01:19→22:58)
[2018-05-12] MEDS: IPRATROPIUM NEB FS 0.5 MG/2.5 ML AMPUL.NEB NEB SCH ×4 (01:33→20:07)
[2018-05-12 04:58] LABS: CALCIUM, SERUM 8.9 mg/dL (8.5-10.1); CREATININE 1.2 mg/dL (0.6-1.3); POTASSIUM 3.9 mmol/L (3.5-5.1)
[2018-05-12] MEDS: BLOOD SUGAR DIAGNOSTIC 1 EACH STRIP VI SCH ×4 (06:40→21:34)
[2018-05-12] MEDS: INSULIN REGULAR, HUMAN 100 UNIT/ML 3 ML VIAL SQ PRN ×2 (06:43→11:11)
[2018-05-12] MEDS: ALBUTEROL FS 2.5 MG/0.5 ML VIAL.NEB NEB SCH ×3 (07:38→20:07)
--- NOTE | 2018-05-12 08:12 | NUR ---
received pt from shiftman, sedated on Diprivan at 40mcg, SR, on the vent, 80% Fi02 and peep 10, lungs congested, no edema, NG clamped, f/c good output, restraints on, v/s stable, no pain, pt turned and repositioned.
[2018-05-12] MEDS: ATORVASTATIN 40 MG TABLET PO SCH (08:26)
[2018-05-12] MEDS: ISOSORBIDE DINITRATE (20MG) 20 MG TABLET PO SCH ×3 (08:27→16:26)
[2018-05-12] MEDS: AMLODIPINE BESYLATE 2.5 MG TABLET PO SCH (08:27)
[2018-05-12] MEDS: MONTELUKAST SODIUM (10MG) 10 MG TABLET PO SCH (08:27)
[2018-05-12] MEDS: AMIODARONE HCL 200 MG TABLET PO SCH (08:28)
[2018-05-12] MEDS: FUROSEMIDE 20 MG/2 ML VIAL IV SCH ×2 (08:28→16:26)
[2018-05-12] MEDS: methylPREDNISolone SOD SUCC 40 MG/ML VIAL IV SCH ×3 (08:28→16:26)
[2018-05-12] MEDS: LOSARTAN POTASSIUM 25 MG TABLET PO SCH (08:29)
[2018-05-12] MEDS: DAKINS QUARTER STRENGTH (0.125%) 480 ML BOTTLE TOP SCH (08:29)
[2018-05-12 09:21] LABS: ABG BASE EXCESS 17.7 mmol/L; ABG OXYGEN SATURATION 91.5 % (92.0-98.5); ABG PCO2 65.9 mmHg (35.0-45.0); ABG PH 7.449 (7.350-7.450); ABG PO2 66.8 mmHg (75.0-100.0); AaDO2 434.4 mmHg; COHb 0.3 % (0.5-1.5); MetHb 0.7 % (0.0-1.5); O2Hb 90.6 % (94.0-97.0); PEEP,BG 10 cm H2O; SITE, ABG Right Radial; VT, ABG 600 mL
--- NOTE | 2018-05-12 12:32 | NUR ---
pt is resting in the bed, v/s stable, no pain, pt turned and repositioned q2hrs.
[2018-05-12] MEDS: CEFTRIAXONE 2 G in IV D5W 100 ML IV SCH (14:18)
[2018-05-12] MEDS: GLUCERNA 1.2 1,000 ML BOTTLE GT PRN (14:26)
--- NOTE | 2018-05-12 16:15 | NUR ---
pt sedated on Diprivan at 40mcg, SR, tolerates feeding, good urine output, v/s stable, no pain, pt cleaned, changed and repositioned q2hrs.
--- NOTE | 2018-05-12 16:22 | NUR ---
et-tube advanced 3cm to 28cm at teeth. per Dr. Dominick dixon.
[2018-05-12] MEDS: *INSULIN REGULAR(HUMULIN R)HUM 100 UNIT/ML VIAL SQ PRN ×2 (17:04→21:23)
--- NOTE | 2018-05-12 19:36 | NUR ---
HAIR DRYER. INITIAL ASSESSMENT. RECEIVED THE PT REST ON THE BED. ORALLY INTUBATED. SEDATED WITH DIPRIVAN. ETT 7.5, LIP 22CM, AC 12,TV 600,FIO2 80%,PEEP 14,SAT 93%. NO ACUTE DISTRESS NOTED. SLOT MANAGER SHOWING NSR. IV LT UPPER ARM MID LINE. IV DIPRIVAN 40MCG/KG/MIN. RT NARE NGT INTACT. GLUCERNA 30ML/H,FC PATENT. URINE DRAINING, GENO SOFT WRIST RESTRAINT CHECKED AND RELEASED. NO INJURY OR REDNESS NOTED. WILL CONTINUE TO MONITOR VITALS.
[2018-05-12] MEDS: ENOXAPARIN SODIUM 40 MG/0.4 ML DISP.SYRIN SQ SCH (20:21)
--- NOTE | 2018-05-12 21:56 | NUR ---
DESKTOP PUBLISHING OPERATOR. PT BLOOD SUGAR 400. INSULINE GIVEN PER ORDER. I CALLED MD EPSTEIN ORDERED ADDITIONAL 20 UNITS LANTUS. . PT ON NGT FEEDING. WILL CONTINUE TO MONITOR BLOOD SUGAR.
[2018-05-12] MEDS ORDERED: INSULIN GLARGINE, 100 UNIT/ML CARTRIDGE SQ SCH ×2 (22:00)
[2018-05-12] MEDS ORDERED: INSULIN GLARGINE, 100 UNIT/ML CARTRIDGE SQ ONE (22:15)
--- NOTE | 2018-05-12 22:35 | NUR ---
HAMMER SHOP SUPERVISOR, RESPIRATORY CULTURE COLLECTED
[2018-05-13] VITALS (39 sets, daily range): BP systolic 117–160; BP diastolic 56–93
[2018-05-13] MEDS: PROPOFOL 100 ML IV PRN ×12 (00:20→22:30)
[2018-05-13] MEDS: IPRATROPIUM NEB FS 0.5 MG/2.5 ML AMPUL.NEB NEB SCH ×4 (00:48→19:22)
--- NOTE | 2018-05-13 03:05 | NUR ---
LAB ASSOCIATE. AM CARE, ORAL CARE, BRD BATH GIVEN. LINEN CHANGED. REMAINING SAME VENT SETTINGS TOLERATED WELL. HOB ELEVATED. NGT FEEDING TOLERATED WELL. WOUND DRESSING DONE. GENO WRIST RESTRAINT CHECKED AND RELEASED, NO INJURY OR REDNESS NOTED,FC PATENT, WILL CONTINUE TO MONITOR VITALS. Addendum: 05/13/18 at 0625 by NIVIA JOYCE RN LAB ASSOCIATE, REPEATED BLOOD SUGAR 336. WILL CONTINUE TO MONITOR
[2018-05-13 05:05] LABS: BASOPHILS # (AUTO) 0.1 /CMM (0.0-0.2); BASOPHILS % (AUTO) 0.8 % (0.0-2.0); EOSINOPHILS % (AUTO) 0.1 % (0.0-6.0); HEMATOCRIT 32 % (39-51); HEMOGLOBIN 10.8 g/dL (13.5-17.5); LYMPHOCYTES # (AUTO) 0.8 /CMM (0.8-4.8); LYMPHOCYTES % (AUTO) 8.8 % (20.0-44.0); MEAN CORPUSCULAR HGB CONC 33 g/dl (31.0-36.0); MEAN CORPUSCULAR VOLUME 89 fL (80-96); MONOCYTES # (AUTO) 1.1 /CMM (0.1-1.30); MONOCYTES % (AUTO) 12.4 % (2.0-12.0); NEUTROPHILS # (AUTO) 7.2 /CMM (1.8-8.9); NEUTROPHILS % (AUTO) 77.9 % (43.0-81.0); PLATELET COUNT (AUTO) 194 /CMM (150-450); RED BLOOD CELL COUNT(AUTO) 3.62 MIL/uL (4.5-6.0); WHITE BLOOD COUNT (AUTO) 9.2 K/uL (4.3-11.0)
[2018-05-13 05:18] LABS: CALCIUM, SERUM 8.5 mg/dL (8.5-10.1); CREATININE 1.2 mg/dL (0.6-1.3); POTASSIUM 3.8 mmol/L (3.5-5.1)
--- NOTE | 2018-05-13 06:14 | NUR ---
RT NOTES PATIENT REC'D ORALLY INTUBATED ON [facility] VENT WITH ORDERED SETTINGS JON WELL. VENT ALARMS CHECKED + AUDIBLE. PATIENT AIRWAY SUCTIONED AND PATENT WITH SMALL AMOUNT OF PALE SEMITHICK SECRETIONS. B/S DIM. PATIENT SEDATED AND IN NO DISTRESS AT THIS TIME. AMBU BAG AT [facility]. Addendum: 05/13/18 at 0615 by JOHN GOMES RT Amended: Links added.
[2018-05-13] MEDS: ALBUTEROL FS 2.5 MG/0.5 ML VIAL.NEB NEB SCH ×3 (07:15→19:22)
--- NOTE | 2018-05-13 07:19 | NUR ---
RT NOTE: PATIENT RECEIVED ORALLY INTUBATED WITH 7.5 ETT SECURED AT 26CM MID LIP LINE ON PB 840 VENT. ETT MOVED FROM LEFT TO RIGHT SIDE OF HIS MOUTH VIA ANCHORFAST. ALARMS VERIFIED AND AUDIBLE. SUCTIONED AND LAVAGED SMALL AMOUNT OF THICK HUI SECRETION. VENT PLUGGED INTO RED OUTLET. AMBU BAG AT [facility].
[2018-05-13] MEDS: INSULIN REGULAR, HUMAN 100 UNIT/ML 3 ML VIAL SQ PRN ×2 (07:51→11:13)
[2018-05-13] MEDS: BLOOD SUGAR DIAGNOSTIC 1 EACH STRIP VI SCH ×4 (07:52→21:47)
[2018-05-13 08:00] LABS: ABG OXYGEN SATURATION 89.1 % (92.0-98.5); ABG PCO2 53.1 mmHg (35.0-45.0); ABG PH 7.488 (7.350-7.450); ABG PO2 58.5 mmHg (75.0-100.0); AaDO2 456.2 mmHg; COHb 0.2 % (0.5-1.5); MetHb 0.3 % (0.0-1.5); O2Hb 88.7 % (94.0-97.0); PEEP,BG 14 cm H2O; SITE, ABG Right Radial; VT, ABG 600 mL
[2018-05-13] MEDS: methylPREDNISolone SOD SUCC 40 MG/ML VIAL IV SCH ×3 (08:26→16:24)
[2018-05-13] MEDS: ISOSORBIDE DINITRATE (20MG) 20 MG TABLET PO SCH ×3 (08:27→16:24)
[2018-05-13] MEDS: FUROSEMIDE 20 MG/2 ML VIAL IV SCH ×2 (08:27→16:24)
[2018-05-13] MEDS: LOSARTAN POTASSIUM 25 MG TABLET PO SCH (08:27)
[2018-05-13] MEDS: MONTELUKAST SODIUM (10MG) 10 MG TABLET PO SCH (08:28)
[2018-05-13] MEDS: AMIODARONE HCL 200 MG TABLET PO SCH (08:28)
[2018-05-13] MEDS: AMLODIPINE BESYLATE 2.5 MG TABLET PO SCH (08:28)
[2018-05-13] MEDS: ATORVASTATIN 40 MG TABLET PO SCH (08:31)
[2018-05-13] MEDS: INSULIN GLARGINE, 100 UNIT/ML CARTRIDGE SQ SCH ×2 (08:33→21:39)
--- NOTE | 2018-05-13 09:34 | NUR ---
received pt from slot shift manager, sedated on Diprivan at 30mcg, SR, on the vent, lungs congested, no edema, NG to feeding tolerates well, f/c good output, restraints on, v/s stable, no pain, pt turned and repositioned.
[2018-05-13] MEDS: DAKINS QUARTER STRENGTH (0.125%) 480 ML BOTTLE TOP SCH ×2 (11:14)
--- NOTE | 2018-05-13 12:32 | NUR ---
pt sedated on Diprivan at 35mcg, v/s stable, no pain, pt turned and repositioned q2hrs.
[2018-05-13] MEDS: CEFTRIAXONE 2 G in IV D5W 100 ML IV SCH (14:40)
--- NOTE | 2018-05-13 16:20 | NUR ---
pt sedated on Diprivan at 35mcg, SR, tolerates feeding, good urine output, v/s stable, no pain, pt cleaned, changed and repositioned q2hrs.
[2018-05-13] MEDS: *INSULIN REGULAR(HUMULIN R)HUM 100 UNIT/ML VIAL SQ PRN ×2 (16:37→21:37)
--- NOTE | 2018-05-13 19:00 | NUR ---
PICKER PACKER NOTES RECEIVED PATIENT ORALLY INTUBATED TO THE VENTILATOR ON AC MODE,SEDATED ON PROPOFOL DRIP (SAS-3),RESPONDS TO PAIN,+ COUGH.NOT IN DISTRESS.WITH ON GOING FEEDING VIA OGT.COMFORTB CARE DONE,NEEDS ATTENDED.
[2018-05-13] MEDS: ENOXAPARIN SODIUM 40 MG/0.4 ML DISP.SYRIN SQ SCH (21:46)
[2018-05-14] VITALS (36 sets, daily range): BP systolic 102–144; BP diastolic 58–82
--- NOTE | 2018-05-14 | NUR ---
TRAIN DISPATCHER NOTES REMAINS INTUBATED,SEDATED,NOT IN ANY RESPIRATORY DISTRESS.V/S STABLE.CONTINUE COMFORT CARE.
[2018-05-14] MEDS: DAKINS QUARTER STRENGTH (0.125%) 480 ML BOTTLE TOP SCH ×3 (00:22→23:53)
[2018-05-14] MEDS: PROPOFOL 100 ML IV PRN ×12 (00:31→23:53)
[2018-05-14] MEDS: IPRATROPIUM NEB FS 0.5 MG/2.5 ML AMPUL.NEB NEB SCH ×4 (00:41→19:37)
--- NOTE | 2018-05-14 04:00 | NUR ---
LOAF COUNTER NOTES REMAINS STABLE,SEDATED.V/S STABLE. 0430 AM CARE DONE,TOLERATED WELL. 0600 OW=[id number] FROM THE LAB. 0630 FINGER STICK DONE [id number] COVERAGE OF 12 UNITS REGULAR INSULIN GIVEN PER SLIDING SCALE. 0700 REPORT GIVEN TO KAREN RN.PATIENT REMAINS STABLE.
[2018-05-14 04:46] LABS: CALCIUM, SERUM 8.6 mg/dL (8.5-10.1); CREATININE 1.3 mg/dL (0.6-1.3)
--- NOTE | 2018-05-14 05:46 | NUR ---
RT NOTE: PATIENT RECEIVED ORALLY INTUBATED WITH 7.5 ETT SECURED AT 26CM MID LIP LINE ON PB 840 VENT. ETT MOVED FROM LEFT TO RIGHT SIDE OF HIS MOUTH VIA ANCHORFAST. ALARMS VERIFIED AND AUDIBLE. SUCTIONED AND LAVAGED SMALL AMOUNT OF THICK HUI SECRETION. VENT PLUGGED INTO RED OUTLET. AMBU BAG AT [facility]. Addendum: 05/14/18 at 0546 by FAUSTINO MARY RT Amended: Links added.
[2018-05-14] MEDS: ALBUTEROL FS 2.5 MG/0.5 ML VIAL.NEB NEB SCH ×3 (06:54→19:37)
[2018-05-14] MEDS: INSULIN REGULAR, HUMAN 100 UNIT/ML 3 ML VIAL SQ PRN ×3 (07:00→18:05)
[2018-05-14] MEDS: BLOOD SUGAR DIAGNOSTIC 1 EACH STRIP VI SCH ×4 (07:01→22:14)
[2018-05-14] MEDS: AMIODARONE HCL 200 MG TABLET PO SCH (08:57)
[2018-05-14] MEDS: methylPREDNISolone SOD SUCC 40 MG/ML VIAL IV SCH ×3 (08:57→16:26)
[2018-05-14] MEDS: LOSARTAN POTASSIUM 25 MG TABLET PO SCH (08:58)
[2018-05-14] MEDS: ISOSORBIDE DINITRATE (20MG) 20 MG TABLET PO SCH ×3 (08:58→16:25)
[2018-05-14] MEDS: AMLODIPINE BESYLATE 2.5 MG TABLET PO SCH (08:58)
[2018-05-14] MEDS: FUROSEMIDE 20 MG/2 ML VIAL IV SCH ×2 (08:59→16:25)
[2018-05-14] MEDS: ATORVASTATIN 40 MG TABLET PO SCH (08:59)
[2018-05-14] MEDS: MONTELUKAST SODIUM (10MG) 10 MG TABLET PO SCH (09:04)
--- NOTE | 2018-05-14 09:08 | NUR ---
RT NOTE RECEIVED PT MECHANICALLY VENTILATED VIA 7.5 ETT 26 CM AT LIP. CUFF INFLATED. ETT SECURE. BILATERAL CHEST RISE NOTED. VENTILATOR SETTINGS PRESCRIBED. ALARMS SET PER PROTOCOL AND AUDIBLE. VENT PLUGGED IN TO RED OUTLET. AMBU BAG AT BED SIDE. NO DISTRESS NOTED AT MOMENT. WILL CONTINUE TO MONITOR. Addendum: 05/14/18 at 0911 by HUY QUACH RT Amended: Links added.
[2018-05-14] MEDS: INSULIN GLARGINE, 100 UNIT/ML CARTRIDGE SQ SCH ×2 (09:29→20:59)
--- NOTE | 2018-05-14 09:37 | NUR ---
ACCESS SPEC DF PT ACCU CHECK OF 299 ADMIN LANTUS 32 UNITS. PT TOLERATING TUBE FEEDINGS RESIDUALS OF 40 ML. PT SEDATED ON PROPOFOL AT 35MCG. PT WITHDRAWS TO TACTILE STIMULI. PT WITH BILATERAL SOFT WRIST RESTRAINTS, FOR PT SAFETY SELF EXTUBATION RISK. VSS. NAD NOTED. MD EPSTEIN ROUNDED AT BEDSIDE UPDATED REGARDING POC. PT TV INCREASED TO 650 PEEP OF 14 AND FIO2 OF 80%. TOLERATING VENT SETTINGS. POC ABG TODAY.
[2018-05-14 10:10] LABS: ABG BASE EXCESS 14.8 mmol/L; ABG OXYGEN SATURATION 94.6 % (92.0-98.5); ABG PH 7.467 (7.350-7.450); ABG PO2 80.5 mmHg (75.0-100.0); COHb 0.3 % (0.5-1.5); MetHb 0.3 % (0.0-1.5); PEEP,BG 14 cm H2O; SITE, ABG Right Radial; VENT MODE, BG AC 16 650 80% +14; VT, ABG 650 mL
[2018-05-14] MEDS: CEFTRIAXONE 2 G in IV D5W 100 ML IV SCH (15:47)
[2018-05-14] MEDS: HYDROMORPHONE 1 MG/1 ML DISP.SYRIN IV PRN (16:32)
[2018-05-14] MEDS: ACETAMINOPHEN 325 MG TABLET PO PRN (18:35)
--- NOTE | 2018-05-14 19:30 | NUR ---
RN NOTES RECEIVED PT SEDATED ON PROPOFOL. RESPONSIVE TO PAIN. WITH ETT 7.5 CM, 26 AT LIP LINE. CONNECTED TO VENT SETTING AC 16 TV 650 FIO2 80% PEEP 14 SATURATION 100%. SB/ SR ON TELE MONITOR. WITH NGT ON THE RIGHT NARES. WITH GLUCERNA 30 ML/HR TOLERATED WELL PATENCY CHECKED NO RESIDUAL. HOB KEPT ELEVATED. IV ISTE ON GIGI MIDLINE AND RAC G 20 RUNNING WITH DIPRIVAN @ 30 MCG/KG/MIN. STRONG PULSES PRESENT ON PERIPHERAL AREA. KEPT PT CLEAN AND COMFORTABLE IN BED. WILL CONTINUE TO MONITOR.
--- NOTE | 2018-05-14 19:42 | NUR ---
RT NOTE: PATIENT RECEIVED ORALLY INTUBATED WITH 7.5 ETT SECURED AT 26CM MID LIP LINE ON PB 840 VENT. ETT MOVED FROM LEFT TO RIGHT SIDE OF HIS MOUTH VIA ANCHORFAST. ALARMS VERIFIED AND AUDIBLE. SUCTIONED AND LAVAGED SMALL AMOUNT OF THICK HUI SECRETION. VENT PLUGGED INTO RED OUTLET. AMBU BAG AT [facility]. Addendum: 05/14/18 at 2 by FAUSTINO MARY RT Amended: Links added.
[2018-05-14] MEDS ORDERED: PIPERACILLIN /TAZOBACTAM 3.375 G in IV D5W 50 ML IV ONE (20:00)
[2018-05-14] MEDS: ENOXAPARIN SODIUM 40 MG/0.4 ML DISP.SYRIN SQ SCH (21:19)
[2018-05-14] MEDS: *INSULIN REGULAR(HUMULIN R)HUM 100 UNIT/ML VIAL SQ PRN (21:59)
[2018-05-15] VITALS (42 sets, daily range): BP systolic 106–145; BP diastolic 53–91
[2018-05-15] MEDS: IPRATROPIUM NEB FS 0.5 MG/2.5 ML AMPUL.NEB NEB SCH ×4 (01:11→19:46)
--- NOTE | 2018-05-15 01:29 | NUR ---
RN NOTES FIO2 CHANGED TO 70% BY RT. WILL CONTINUE TO MONITOR SATURATION AT THIS TIME 97% REMAINED SR ON TELE MONITOR. WITH VSS
[2018-05-15] MEDS: PROPOFOL 100 ML IV PRN ×12 (02:56→23:18)
[2018-05-15] MEDS: PIPERACILLIN /TAZOBACTAM 3.375 G in IV D5W 100 ML IV SCH ×3 (04:28→20:42)
[2018-05-15] MEDS: GLUCERNA 1.2 1,000 ML BOTTLE GT PRN (04:38)
[2018-05-15 05:17] LABS: CALCIUM, SERUM 8.6 mg/dL (8.5-10.1); CREATININE 1.1 mg/dL (0.6-1.3)
--- NOTE | 2018-05-15 07:10 | NUR ---
RN NOTES NO SIGNIFICANT CHANGE OF CONDITION THROUGHOUT THE SHIFT. PT REMAINED ON ETT WITH VENT SETTING TOLERATED WELL. VSS. NGT TOLERATED WELL FLUSHED, PATENT. IV SITE REMAINED INTACT AND PATENT WITH ONGOING PROPOFOL AT 25 MCG/KG/MIN. KEPT PT CLEAN AND COMFORTABLE IN BED. ALL DUE MEDICINE TOELRATED WELL. ENDORSED CONTINUITY OF CARE TO AM NURSE.
[2018-05-15] MEDS: ALBUTEROL FS 2.5 MG/0.5 ML VIAL.NEB NEB SCH ×3 (07:39→19:46)
--- NOTE | 2018-05-15 07:50 | NUR ---
RT PATIENT REC'D ORALLY INTUBATED ON [facility] VENT WITH NOTED SETTINGS JON WELL. VENT ALARMS CHECKED + AUDIBLE. CUFF PRESSURE CHECKED IMPREGNATOR HELPER. PATIENT AIRWAY SUCTIONED AND PATENT. SUCTIONED WITH MOD AMT OF PALE SEMI-THICK SECRETIONS. PATIENT NON RESPONSIVE NO DISTRESS NOTED. AMBU BAG AT [facility]. Addendum: 05/15/18 at 0931 by VANCE GOLDEN RT Amended: Links added.
[2018-05-15] MEDS: INSULIN REGULAR, HUMAN 100 UNIT/ML 3 ML VIAL SQ PRN ×3 (08:00→18:14)
[2018-05-15] MEDS: BLOOD SUGAR DIAGNOSTIC 1 EACH STRIP VI SCH ×4 (08:02→21:50)
[2018-05-15 08:04] LABS: ABG BASE EXCESS 13.8 mmol/L; ABG OXYGEN SATURATION 95.9 % (92.0-98.5); ABG PCO2 57.9 mmHg (35.0-45.0); ABG PH 7.457 (7.350-7.450); ABG PO2 96.5 mmHg (75.0-100.0); AaDO2 340.4 mmHg; MetHb 0.2 % (0.0-1.5); O2Hb 95.7 % (94.0-97.0); SITE, ABG Right Radial
[2018-05-15] MEDS: FUROSEMIDE 20 MG/2 ML VIAL IV SCH ×2 (08:14→10:27)
[2018-05-15] MEDS: MONTELUKAST SODIUM (10MG) 10 MG TABLET PO SCH (08:21)
[2018-05-15] MEDS: ATORVASTATIN 40 MG TABLET PO SCH (08:21)
[2018-05-15] MEDS: AMLODIPINE BESYLATE 2.5 MG TABLET PO SCH (08:21)
--- NOTE | 2018-05-15 09:40 | NUR ---
SEDATION VACATION SEDATION VACATION TITRATION DONE PER PROTOCOL. SEE IV SPREADSHEET. PATIENT ORIENTED TO ENVIRONMENT, SITUATION, AND TIME. NONLABORED BREATHING NOTED. MILD AGITATION NOTED. HOWEVER, NO SIGNS OF ANXIETY. PATIENT ABLE TO FOLLOW COMMANDS BY MOVING UPPER EXTREMITIES AND LOWER EXTREMITIES. ABLE TO OPEN AND CLOSE EYES. PROPOFOL TITRATED UP THERE IS NO WEANING ORDER
--- NOTE | 2018-05-15 10:00 | NUR ---
DR GUEVARA NOTIFIED OF ABG RESULTS. PER HIS ORDERS, KEEP TV AT 650. VERBAL READBACK DONE
[2018-05-15] MEDS: LOSARTAN POTASSIUM 25 MG TABLET PO SCH (10:15)
[2018-05-15] MEDS: AMIODARONE HCL 200 MG TABLET PO SCH (10:16)
[2018-05-15] MEDS: methylPREDNISolone SOD SUCC 40 MG/ML VIAL IV SCH ×2 (10:21→17:59)
--- NOTE | 2018-05-15 10:27 | NUR ---
LASIX 40 MG ADMINISTERED SEE EMAR
[2018-05-15] MEDS: INSULIN GLARGINE, 100 UNIT/ML CARTRIDGE SQ SCH ×2 (10:31→21:49)
--- NOTE | 2018-05-15 11:00 | NUR ---
VERIFIED WITH DR EPSTEIN TO CONTINUE ORDERED LANTUS WELL ACHS MODERATE SLIDING SCALE REGULAR INSULIN
[2018-05-15] MEDS: ISOSORBIDE DINITRATE (20MG) 20 MG TABLET PO SCH ×3 (11:41→18:03)
[2018-05-15] MEDS: DAKINS QUARTER STRENGTH (0.125%) 480 ML BOTTLE TOP SCH (11:42)
--- NOTE | 2018-05-15 18:29 | NUR ---
SOFT BILATERAL WRIST RESTRAINTS FOR UPPER EXTREMITIES ORDER PER DR EPSTEIN, INCREASED MONITORING IMPLEMENTED, TUBES ARE HIDDEN, COMFORT MEASURES ASSESSED AND MONITORED FOR. PATIENT NOTED TO BE TRYING TO REMOVE TUBES WHEN OFF SEDATION
--- NOTE | 2018-05-15 19:00 | NUR ---
RN NOTE RECEIVED PT IN NO ACUTE DISTRESS IN BED. PT IS SEDATED ON PROPOFOL. PT IS ON MECHANICAL VENT VIA ETT THAT IS CLEAN DRY AND INTACT. ETT IS 7.5/26 AT THE LIP. PT TOLERATING VENT SETTING AT AC 16, TV 650, FIO2 60%, PEEP 14. PT HAS NGTUBE THAT IS CLEAN DRY INTACT AND PATENT WITH GLUCERNA @ 30ML/HR. PT HAS GUZMAN CATH THAT IS CLEAN DRY INTACT AND PATENT WITH CLEAR ALBERT URINE DRAINING. PT HAS GIGI MIDLINE THAT IS CLEAN DRY INTACT AND PATENT WITH PROPOFOL @ 40 MCG/MIN. PT HAS PARIS 20G THAT IS CLEAN DRY INTACT AND PATENT WITH SALINE FLUSH. BED IN LOW LOCK POSITION WITH RAILS UP X 2. CALL LIGHT WITHIN REACH AND ALL SAFETY MEASURES ENSURED AND CARRIED OUT. WILL CONTINUE TO MONITOR PT.
--- NOTE | 2018-05-15 19:17 | NUR ---
RN CLOSING PATIENT RESTING IN BED. NONLABORED BREATHING NOTED ON CURRENT VENT SETTINGS. WITH ETT 7.5 CM, 26 AT LIP LINE. CONNECTED TO VENT SETTING AC 16 TV 650 FIO2 60% PEEP 14 SR, SB WITH BB AND T WAVE INVERSION ON TELE MONITOR THROUGHOUT THE DAY. WITH NGT ON THE RIGHT NARES. WITH GLUCERNA 30 ML/HR TOLERATED WELL PATENCY CHECKED NO RESIDUAL. HOB KEPT ELEVATED. IV ISTE ON GIGI MIDLINE AND RAC G 20 RUNNING WITH DIPRIVAN @ 40 MCG/KG/MIN. ENDORSED TO JOB KAY
--- NOTE | 2018-05-15 20:30 | NUR ---
RECEIVED PT INTUBATED 7.5 ETT SECURED AT 26CM AT THE LIP VIA ANCHOR FAST. NO RESP DISTRESS, PT TOLERATING VENT SETTINGS. BS DM, SX'D FOR MOD AMT OF THICK WHITE SECRETIONS. VENT ALARMS SET AND AUDIBLE. AMBU BAG AT BEDSIDE. VENT PLUGGED INTO RED OUTLET. WILL CONTINUE TO MONITOR. Addendum: 05/15/18 at 2030 by LUZMARIA LOPEZ RT Amended: Links added.
[2018-05-15] MEDS: *INSULIN REGULAR(HUMULIN R)HUM 100 UNIT/ML VIAL SQ PRN (21:49)
[2018-05-15] MEDS: ENOXAPARIN SODIUM 40 MG/0.4 ML DISP.SYRIN SQ SCH (21:52)
[2018-05-16] VITALS (36 sets, daily range): BP systolic 99–141; BP diastolic 57–81
[2018-05-16] MEDS: PROPOFOL 100 ML IV PRN ×12 (01:10→23:40)
[2018-05-16] MEDS: IPRATROPIUM NEB FS 0.5 MG/2.5 ML AMPUL.NEB NEB SCH ×4 (01:28→19:44)
[2018-05-16] MEDS: PIPERACILLIN /TAZOBACTAM 3.375 G in IV D5W 100 ML IV SCH ×3 (03:56→20:17)
[2018-05-16 05:06] LABS: BASOPHILS % (AUTO) 0.2 % (0.0-2.0); EOSINOPHILS % (AUTO) 0.1 % (0.0-6.0); HEMATOCRIT 35 % (39-51); HEMOGLOBIN 11.6 g/dL (13.5-17.5); LYMPHOCYTES % (AUTO) 9.4 % (20.0-44.0); MEAN CORPUSCULAR HGB CONC 33 g/dl (31.0-36.0); MEAN CORPUSCULAR VOLUME 89 fL (80-96); MONOCYTES # (AUTO) 1.2 /CMM (0.1-1.30); MONOCYTES % (AUTO) 11.2 % (2.0-12.0); NEUTROPHILS # (AUTO) 8.2 /CMM (1.8-8.9); NEUTROPHILS % (AUTO) 79.1 % (43.0-81.0); PLATELET COUNT (AUTO) 191 /CMM (150-450); RED BLOOD CELL COUNT(AUTO) 3.97 MIL/uL (4.5-6.0); WHITE BLOOD COUNT (AUTO) 10.3 K/uL (4.3-11.0)
[2018-05-16 05:29] LABS: CALCIUM, SERUM 8.5 mg/dL (8.5-10.1); CREATININE 1.2 mg/dL (0.6-1.3); MAGNESIUM 2.4 mg/dL (1.8-2.4)
--- NOTE | 2018-05-16 06:54 | NUR ---
RN NOTE PT REMAINS IN NO ACUTE DISTRESS IN BED. PT DID NOT HAVE ANY SIGNIFICANT CHANGE IN CONDITION DURING SHIFT. PT TOLERATED VENT SETTING WELL. PT REMAINS SEDATED ON PROPOFOL @ 40 MCG. ALL NEEDS MET, ALL ORDERS CARRIED OUT. WILL ENDORSE CARE TO AM RN FOR CONTINUITY OF CARE.
[2018-05-16] MEDS: ALBUTEROL FS 2.5 MG/0.5 ML VIAL.NEB NEB SCH ×3 (07:20→19:44)
[2018-05-16] MEDS: BLOOD SUGAR DIAGNOSTIC 1 EACH STRIP VI SCH ×4 (07:43→21:46)
[2018-05-16] MEDS: INSULIN REGULAR, HUMAN 100 UNIT/ML 3 ML VIAL SQ PRN ×3 (07:44→17:11)
[2018-05-16] MEDS: FUROSEMIDE 20 MG/2 ML VIAL IV SCH (08:06)
[2018-05-16] MEDS: ISOSORBIDE DINITRATE (20MG) 20 MG TABLET PO SCH ×3 (08:07→16:25)
[2018-05-16] MEDS: AMIODARONE HCL 200 MG TABLET PO SCH (08:07)
[2018-05-16] MEDS: LOSARTAN POTASSIUM 25 MG TABLET PO SCH (08:07)
[2018-05-16] MEDS: ATORVASTATIN 40 MG TABLET PO SCH (08:08)
[2018-05-16] MEDS: MONTELUKAST SODIUM (10MG) 10 MG TABLET PO SCH (08:08)
[2018-05-16] MEDS: AMLODIPINE BESYLATE 2.5 MG TABLET PO SCH (08:09)
[2018-05-16] MEDS: INSULIN GLARGINE, 100 UNIT/ML CARTRIDGE SQ SCH ×2 (08:20→20:17)
[2018-05-16] MEDS: methylPREDNISolone SOD SUCC 40 MG/ML VIAL IV SCH (08:20)
[2018-05-16 10:30] LABS: ABG BASE EXCESS 10.4 mmol/L; ABG OXYGEN SATURATION 95.2 % (92.0-98.5); ABG PCO2 51.4 mmHg (35.0-45.0); ABG PH 7.461 (7.350-7.450); ABG PO2 80.3 mmHg (75.0-100.0); COHb 0.3 % (0.5-1.5); MetHb 0.6 % (0.0-1.5); O2Hb 94.3 % (94.0-97.0); PEEP,BG 10 cm H2O; SITE, ABG Right Radial; VT, ABG 650 mL
--- NOTE | 2018-05-16 10:36 | NUR ---
RN NOTE 0720: Received patient sedated, with ETT to vent, tolerated settings well. No respiratory distress noted at tis time. With NGT intact, feeding tolerated, no residuals noted. Kept HOB elevated. On Diprivan @ 40mcg. John cath intact, noted with genna colored urine with residuals. On Barimaxx, on turning frequently. 0830: Placed patient's Diprivan higher for episode of agitation, see IV spreadsheet for titration 0850: S/E by Dr. Toribio, with order to increase Lantus to 38 from 35 and labs in am. 0920: S/E by Dr. Tan, with order to change PEEP to 10 and ABG in an hour. Made RT aware. Informed MD for Trigly 291 from yesterday, said to keep Diprivan still for now and will follow up tomorrow. 1020: ABG done, RT made Dr. Tan aware with new vent changes done, changed FIO2 to 55% and PEEP 8. 1035: No any significant changes noted at this time. Continue POC.
[2018-05-16] MEDS: DAKINS QUARTER STRENGTH (0.125%) 480 ML BOTTLE TOP SCH ×3 (11:53→23:49)
--- NOTE | 2018-05-16 13:50 | NUR ---
RT PT RECEIVED ORALLY INTUBATED WITH A 7.5 ETT SECURED AT 26CM AT THE LIP LINE. PT IS ON THE VENT WITH NOTED SETTINGS. PT IS CURRENTLY SEDATED AT THIS TIME BUT RESPONDS TO STIMULI WHEN SX'D. VENT ALARMS ARE SET AND AUDIBLE WITH BVM BY BEDSIDE. UNDER SEAL OPERATOR CUFF PRESSURE NOTED. VENT IS PLUGGED INTO RED OUTLET. PT SX'D SMALL THICK YELLOW SECRETIONS. NO RESPIRATORY DISTRESS NOTED AT THIS TIME, WILL CONTINUE TO MONITOR. Addendum: 05/16/18 at 1423 by ALBERTA JONES RT Amended: Links added.
--- NOTE | 2018-05-16 19:30 | NUR ---
RN INITIAL NOTES RECEIVED THE PATIENT SEDATED ON BED WITH DIPRIVAN @ 40MCG/KG/MIN. INTUBATED AND ON VENT WITH SETTINGS AC 16, TV 600, FIO2 55%, PEEP 8, ETT 7.5/26@LIP, SATURATING WELL, NO S/S OF RESP DISTRESS. PT IS SR ON THE MONITOR, HR 60'S. GUZMAN CATH INTACT. LEFT NARE NGT WITH GTF GLUCERNA @ 30MLS/HR, NO RESIDUALS, TOLERATING WELL. RIGHT AC 20G AND LEFT UPPER ARM MIDLINE, FLUSHED AND PATENT, NO S/S OF INFILTRATION/INFECTION, DRESSINGS CDI. BED LOW AND LOCKED, SIDERAILS UP, BILATERAL WRIST RESTRAINTS IN PLACE FOR SAFETY. WILL MONITOR Addendum: 05/16/18 at 2040 by KENNETH BUSTAMANTE RN RIGHT NARE NGT
[2018-05-16] MEDS: ENOXAPARIN SODIUM 40 MG/0.4 ML DISP.SYRIN SQ SCH (20:17)
--- NOTE | 2018-05-16 20:30 | NUR ---
RECEIVED PT INTUBATED 7.5 ETT SECURED AT 26CM AT THE LIP VIA ANCHOR FAST. NO RESP DISTRESS, PT TOLERATING VENT SETTINGS. BS DM, SX'D FOR MOD AMT OF THICK WHITE SECRETIONS. VENT ALARMS SET AND AUDIBLE. AMBU BAG AT BEDSIDE. VENT PLUGGED INTO RED OUTLET. WILL CONTINUE TO MONITOR. Addendum: 05/16/18 at 2030 by LUZMARIA LOPEZ RT Amended: Links added.
[2018-05-16] MEDS: *INSULIN REGULAR(HUMULIN R)HUM 100 UNIT/ML VIAL SQ PRN (21:46)
[2018-05-17] VITALS (40 sets, daily range): BP systolic 92–130; BP diastolic 50–75
[2018-05-17] MEDS: IPRATROPIUM NEB FS 0.5 MG/2.5 ML AMPUL.NEB NEB SCH ×4 (01:03→19:32)
[2018-05-17] MEDS: PROPOFOL 100 ML IV PRN ×12 (01:18→23:55)
[2018-05-17] MEDS: PIPERACILLIN /TAZOBACTAM 3.375 G in IV D5W 100 ML IV SCH ×3 (03:27→20:00)
[2018-05-17] MEDS: GLUCERNA 1.2 1,000 ML BOTTLE GT PRN (03:27)
[2018-05-17 04:54] LABS: CALCIUM, SERUM 8.6 mg/dL (8.5-10.1); POTASSIUM 3.4 mmol/L (3.5-5.1)
--- NOTE | 2018-05-17 06:30 | NUR ---
RN CLOSING NOTES PT REMAINS STABLE OF THE MOMENT. ALL DUE MEDS GIVEN, AM CARE PROVIDED. WILL ENDORSE DAVIAN TO AM RN
--- NOTE | 2018-05-17 07:10 | NUR ---
RECEIVED CARE OF PATIENT FROM RAHUL COOPER. PATIENT ETT 7.5/ VENT SETTINGS PER ORDER. PATIENT SATURATING 91% ON 60% FI02 PER DR GUEVARA GOAL OF 91% OXYGEN SATURATION OKAY. PATIENT SEDATED ON DIPRIVAN NOTED ON SPREADSHEET AND GRIMACES/MOVES TO STERNAL RUB. R NARE NG TUBE IN PLACE WITH GLUCERNA 1.2 AT 30 RUNNING NO RESIDUAL NOTED. GUZMAN CATH IN PLACE DRAINING TO GRAVITY. IV SITES C/D/I/P. VSS. CORE TEMP 98.7. SAFETY, SKIN, AND ASPIRATION PRECAUTIONS IN PLACE AND WILL MONITOR.
[2018-05-17] MEDS: ALBUTEROL FS 2.5 MG/0.5 ML VIAL.NEB NEB SCH ×3 (07:46→19:32)
--- NOTE | 2018-05-17 07:49 | NUR ---
RT PATIENT REC'D ORALLY INTUBATED ON [facility] VENT WITH ORDERED SETTINGS JON WELL. VENT ALARMS CHECKED + AUDIBLE. CUFF PRESSURE CHECKED FINAL FINISHER FORGING DIES. PATIENT AIRWAY SUCTIONED AND PATENT WITH SMALL AMT OF PALE SEMI-THICK SECRETIONS. PATIENT SEDATED AND IN NO DISTRESS AT THIS TIME. B/S RAINER SANTA. AMBU BAG AT [facility] Addendum: 05/17/18 at 0752 by VANCE GOLDEN RT Amended: Links added.
[2018-05-17 08:09] LABS: ABG BASE EXCESS 10.9 mmol/L; ABG OXYGEN SATURATION 91.1 % (92.0-98.5); ABG PCO2 53.6 mmHg (35.0-45.0); ABG PH 7.452 (7.350-7.450); ABG PO2 63.9 mmHg (75.0-100.0); AaDO2 304.9 mmHg; COHb 0.3 % (0.5-1.5); MetHb 0.6 % (0.0-1.5); O2Hb 90.3 % (94.0-97.0); SITE, ABG Right Radial
[2018-05-17] MEDS: BLOOD SUGAR DIAGNOSTIC 1 EACH STRIP VI SCH ×4 (08:18→22:40)
[2018-05-17] MEDS: methylPREDNISolone SOD SUCC 40 MG/ML VIAL IV SCH (08:19)
[2018-05-17] MEDS: ATORVASTATIN 40 MG TABLET PO SCH (08:19)
[2018-05-17] MEDS: FUROSEMIDE 20 MG/2 ML VIAL IV SCH (08:19)
[2018-05-17] MEDS: MONTELUKAST SODIUM (10MG) 10 MG TABLET PO SCH (08:19)
[2018-05-17] MEDS: AMIODARONE HCL 200 MG TABLET PO SCH (08:20)
[2018-05-17] MEDS: AMLODIPINE BESYLATE 2.5 MG TABLET PO SCH (08:26)
[2018-05-17] MEDS: INSULIN REGULAR, HUMAN 100 UNIT/ML 3 ML VIAL SQ PRN ×3 (08:27→17:35)
[2018-05-17] MEDS: ISOSORBIDE DINITRATE (20MG) 20 MG TABLET PO SCH ×3 (08:28→17:00)
[2018-05-17] MEDS: INSULIN GLARGINE, 100 UNIT/ML CARTRIDGE SQ SCH ×2 (08:32→22:23)
--- NOTE | 2018-05-17 08:50 | NUR ---
DR GUEVARA AT BEDSIDE. AWARE OF THIS AM ABG. NO NEW ORDERS AT THIS TIME.
--- NOTE | 2018-05-17 09:00 | NUR ---
PATIENT CALM AND COOPERATIVE DURING SEDATION VACATION. FOLLOWING COMMANDS. OPENING EYES. NODDING Y/N TO QUESTIONS ASKED OF HIM. WHILE OFF DIPRIVAN PATIENT STARTED TO DE SAT TO 82-84%. RESUMED DIPRIVAN AND PATIENT INCREASED OXYGEN SATURATION TO 91-94%
[2018-05-17] MEDS ORDERED: POTASSIUM CHLORIDE 20 MEQ TAB.PRT.SR PO ONE (09:30)
[2018-05-17] MEDS: LOSARTAN POTASSIUM 25 MG TABLET PO SCH (10:24)
[2018-05-17] MEDS: DAKINS QUARTER STRENGTH (0.125%) 480 ML BOTTLE TOP SCH (11:13)
--- NOTE | 2018-05-17 15:29 | NUR ---
PATIENT PLACED ON 70% FI02 FOR DECREASING OX SAT 88%
--- NOTE | 2018-05-17 15:30 | NUR ---
RT FIO2 INCREASED TO 80% FOR DESATURATION Addendum: 05/17/18 at 1726 by VANCE GOLDEN RT Amended: Links added.
--- NOTE | 2018-05-17 18:44 | NUR ---
ALL DUE MEDS GIVEN AND ALL NEEDS MET. PATIENT SATURATING 98% ON 80% FI02. PRN SUCTIONING THROUGHOUT DAY. TOLERATING 30MCG/KG/MIN OF DIPRIVAN MOVES TO LOCALIZED PAIN GAG REFLEX INTACT. PATIENT ABOUT 2L URINE OUTPUT TODAY. WOUND CARE PER ORDER TURNED Q2H OR LESS FOR SKIN PROTECTION. ASPIRATION, SKIN, AND SAFETY PRECAUTIONS OBSERVED THROUGHOUT DAY. TOLERATING TUBE FEEDING NO RESIDUAL NOTED. WILL ENDORSE CARE TO RAHUL K[facility]IS[facility] FOR DAVIAN
--- NOTE | 2018-05-17 19:00 | NUR ---
RN NOTE RECEIVED PT IN NO ACUTE DISTRESS IN BED. PT IS SEDATED ON PROPOFOL. PT IS ON MECHANICAL VENT VIA ETT THAT IS CLEAN DRY AND INTACT. ETT IS 7.5/26 AT THE LIP. PT TOLERATING VENT SETTING AT AC 16, TV 600, FIO2 80%, PEEP 8. PT HAS NGTUBE THAT IS CLEAN DRY INTACT AND PATENT WITH GLUCERNA @ 30ML/HR. PT HAS GUZMAN CATH THAT IS CLEAN DRY INTACT AND PATENT WITH CLEAR ALBERT URINE DRAINING. PT HAS GIGI MIDLINE THAT IS CLEAN DRY INTACT AND PATENT WITH PROPOFOL @ 30 MCG/MIN. PT HAS [place] 20G THAT IS CLEAN DRY INTACT AND PATENT WITH SALINE FLUSH. BED IN LOW LOCK POSITION WITH RAILS UP X 2. CALL LIGHT WITHIN REACH AND ALL SAFETY MEASURES ENSURED AND CARRIED OUT. WILL CONTINUE TO MONITOR PT.
--- NOTE | 2018-05-17 19:33 | NUR ---
PT RECEIVED ORALLY INTUBATED WITH A 7.5 ETT SECURED @ 26CM AT THE LIP. PT IS ON THE VENT WITH NOTED SETTINGS. BREATHING TX GIVEN , NO ADVERSE REACTION AT THIS TIME. PT IS SEDATED AND RESPONDS TO STIMULI WHEN SUCTIONED . VENT PLUGGED INTO RED OUTLET, VENT ALARMS ARE SET AND AUDIBLE WITH AMBU BAG@ BEDSIDE. ENROBER TENDER CUFF PRESSURE NOTED. SUCTIONED SMALL AMOUNT OF PALE THICK YELLOW SECRETIONS. NO RESPIRATORY DISTRESS NOTED AT THIS TIME, WILL CONTINUE TO MONITOR.
[2018-05-17] MEDS: ENOXAPARIN SODIUM 40 MG/0.4 ML DISP.SYRIN SQ SCH (22:23)
[2018-05-17] MEDS: *INSULIN REGULAR(HUMULIN R)HUM 100 UNIT/ML VIAL SQ PRN (22:25)
--- NOTE | 2018-05-17 23:10 | NUR ---
RN NOTE NOTIFIED BY RT THAT FIO2 WAS TITRATED DOWN TO 70%. WILL CONTINUE TO MONITOR PT O2 SAT.
[2018-05-18] VITALS (39 sets, daily range): BP systolic 95–127; BP diastolic 53–83
[2018-05-18] MEDS: DAKINS QUARTER STRENGTH (0.125%) 480 ML BOTTLE TOP SCH ×2 (00:24→12:25)
--- NOTE | 2018-05-18 01:00 | NUR ---
RN NOTE PT O2 SAT IS 93-98%. WILL CONTINUE TO MONITOR.
[2018-05-18] MEDS: IPRATROPIUM NEB FS 0.5 MG/2.5 ML AMPUL.NEB NEB SCH ×4 (01:35→19:30)
[2018-05-18] MEDS: PROPOFOL 100 ML IV PRN ×10 (02:06→23:30)
[2018-05-18] MEDS: PIPERACILLIN /TAZOBACTAM 3.375 G in IV D5W 100 ML IV SCH ×3 (03:03→19:49)
--- NOTE | 2018-05-18 03:39 | NUR ---
RN NOTE NOTIFIED BY RT THAT FIO2 TITRATED DOWN TO 60%. WILL CONTINUE TO MONITOR O2 SAT.
[2018-05-18 04:40] LABS: CALCIUM, SERUM 8.4 mg/dL (8.5-10.1); POTASSIUM 3.5 mmol/L (3.5-5.1)
--- NOTE | 2018-05-18 07:15 | NUR ---
RECEIVED CARE OF PATIENT FROM RAHUL COOPER. PATIENT ETT 7.5/26 VENT SETTINGS PER ORDER. PATIENT SATURATING 92% ON 60% FI02 PER DR GUEVARA GOAL OF 91% OXYGEN SATURATION OKAY AND PENDING WEANING TRIAL TODAY. PATIENT SEDATED ON DIPRIVAN NOTED ON SPREADSHEET AND GRIMACES/MOVES TO STERNAL RUB. R NARE NG TUBE IN PLACE WITH GLUCERNA 1.2 AT 30 RUNNING NO RESIDUAL NOTED. GUZMAN CATH IN PLACE DRAINING TO GRAVITY. IV SITES C/D/I/P. VSS. CORE TEMP 99.0. SAFETY, SKIN, AND ASPIRATION PRECAUTIONS IN PLACE AND WILL MONITOR. Addendum: 05/18/18 at 0941 by DERIC LABOY RN FROM [facility]*
--- NOTE | 2018-05-18 07:15 | NUR ---
RN NOTE PT REMAINS IN NO ACUTE DISTRESS IN BED. PT DID NOT HAVE ANY SIGNIFICANT CHANGE IN CONDITION DURING SHIFT. PT TOLERATED VENT SETTING WELL. ALL NEEDS MET, ALL ORDERS CARRIED OUT. WILL ENDORSE CARE TO AM RN FOR CONTINUITY OF CARE.
[2018-05-18] MEDS: ALBUTEROL FS 2.5 MG/0.5 ML VIAL.NEB NEB SCH ×3 (07:54→19:30)
[2018-05-18] MEDS: FUROSEMIDE 20 MG/2 ML VIAL IV SCH (08:25)
[2018-05-18] MEDS: ATORVASTATIN 40 MG TABLET PO SCH (08:25)
[2018-05-18] MEDS: MONTELUKAST SODIUM (10MG) 10 MG TABLET PO SCH (08:25)
[2018-05-18] MEDS: BLOOD SUGAR DIAGNOSTIC 1 EACH STRIP VI SCH ×4 (08:25→21:12)
[2018-05-18] MEDS: methylPREDNISolone SOD SUCC 40 MG/ML VIAL IV SCH (08:25)
[2018-05-18] MEDS: AMIODARONE HCL 200 MG TABLET PO SCH (08:26)
[2018-05-18] MEDS: ISOSORBIDE DINITRATE (20MG) 20 MG TABLET PO SCH ×3 (08:26→17:04)
[2018-05-18] MEDS: AMLODIPINE BESYLATE 2.5 MG TABLET PO SCH (08:27)
[2018-05-18] MEDS: INSULIN REGULAR, HUMAN 100 UNIT/ML 3 ML VIAL SQ PRN ×3 (08:33→17:04)
[2018-05-18] MEDS: INSULIN GLARGINE, 100 UNIT/ML CARTRIDGE SQ SCH ×2 (08:33→21:13)
--- NOTE | 2018-05-18 09:00 | NUR ---
DR GUEVARA AT BEDSIDE. PER MD PLEASE OBTAIN ABG AROUND 0930. PATIENT PLACED ON SIMV AT 0800 AND TOLERATING WELL. PATIENT CURRENTLY MIN 10MCG/KG/MIN OF DIPRIVAN AND AWAKE AND FOLLOWING COMMANDS.
[2018-05-18 09:48] LABS: ABG BASE EXCESS 10.7 mmol/L; ABG OXYGEN SATURATION 89.5 % (92.0-98.5); ABG PCO2 45.6 mmHg (35.0-45.0); ABG PH 7.504 (7.350-7.450); ABG PO2 55.1 mmHg (75.0-100.0); AaDO2 286.3 mmHg; COHb 0.3 % (0.5-1.5); MetHb 0.8 % (0.0-1.5); O2Hb 88.5 % (94.0-97.0); PEEP,BG 5 cm H2O; SITE, ABG Right Radial
--- NOTE | 2018-05-18 09:51 | NUR ---
NOTIFIED DR GUEVARA OF ABG RESULTS ON SIMV. PER MD PLEASE PATIENT BACK ON AC MODE AND WE WILL ATTEMPT POSSIBLY TOMORROW. RESUMING PATIENT DIPRIVAN FOR COMFORT PATIENT IS ANXIOUS ON 10MCG/KG/MIN. NOTIFIED RT.
--- NOTE | 2018-05-18 10:05 | NUR ---
PATIENT PLACED BACK ON AC MODE PER DR GUEVARA
[2018-05-18] MEDS: LOSARTAN POTASSIUM 25 MG TABLET PO SCH (10:16)
[2018-05-18] MEDS: ACETAMINOPHEN 325 MG TABLET PO PRN (11:11)
[2018-05-18] MEDS: GLUCERNA 1.2 1,000 ML BOTTLE GT PRN (12:27)
[2018-05-18] MEDS: Z GUARD REMEDY 2 OZ OINT TP PRN (17:00)
--- NOTE | 2018-05-18 18:54 | NUR ---
ALL DUE MEDS GIVEN AND ALL NEEDS MET. PATIENT TOLERATING VENT SETTINGS AND SEDATED ON DIPRIVAN PER SPREADSHEET. GUZMAN CATH IN PLACE AND DRAINING TO GRAVITY. VSS. SKIN, SAFETY, AND ASPIRATION PRECAUTIONS IN PLACE AND CARE WILL ENDORSE TO RN FOR DAVIAN.
--- NOTE | 2018-05-18 19:30 | NUR ---
COLLEGE ATHLETE. INITIAL ASSESSMENT. RECEIVED THE PT REST ON THE BED. ORALLY INTUBATED. SEDATED WITH DIPRIVAN. ETT 7.5CM,LIP 26CM,AC 16, TV 600,FIO2 70%, PEEP 8. SAT 94%. STITCHDOWN TOE FORMER SHOWING NSR. IV LT UPPER ARM MID LINE , LT AC 18G. DIPRIVAN 30MCG/KG/MIN, RT NARE NGT INTACT. GLUCERNA 30ML/H. FC PATENT. URINE DRAINING. HOB ELEVATED. GENO SOFT WRIST RESTRAINT CHECKED AND RELEASED. NO INJURY OR REDNESS NOTED. AFEBRILE. WILL CONTINUE TO MONITOR VITALS.
[2018-05-18] MEDS: IV NS 0.9% 250 ML IV PRN (20:22)
[2018-05-18] MEDS: ENOXAPARIN SODIUM 40 MG/0.4 ML DISP.SYRIN SQ SCH (21:12)
[2018-05-18] MEDS: *INSULIN REGULAR(HUMULIN R)HUM 100 UNIT/ML VIAL SQ PRN (21:14)
[2018-05-19] VITALS (35 sets, daily range): BP systolic 91–127; BP diastolic 57–85
[2018-05-19] MEDS: PROPOFOL 100 ML IV PRN ×9 (01:15→22:01)
[2018-05-19] MEDS: IPRATROPIUM NEB FS 0.5 MG/2.5 ML AMPUL.NEB NEB SCH ×4 (01:43→19:46)
--- NOTE | 2018-05-19 02:27 | NUR ---
FOUNTAIN ROLLER ASSEMBLERRN. PETERSON SCANNED LATE. COMPUTER SYSTEM WAS DOWN.
[2018-05-19] MEDS: PIPERACILLIN /TAZOBACTAM 3.375 G in IV D5W 100 ML IV SCH ×3 (03:58→19:59)
--- NOTE | 2018-05-19 05:30 | NUR ---
RITUAL CIRCUMCISER. AM CARE, ORAL CARE, BED BATH GIVEN. LINEN CHANGED. REMAINING SAME VENT SETTING TOLERATED WELL. SAT 94&. NO ACUTE DISTRESS NOTED, FINAL INSPECTOR SHUTTLE SHOWING NSR. IV LT UPPER ARM MID LINE. DIPRIVAN 30MCG/KG/MIN. NGT FEEDING TOLERATED WELL. FC PATENT. URINE DRAINING. HOB ELEVATED. GENO SOFT WRIST RESTRAINT CHECKED AND RELEASED. NO INJURY OR REDNESS NOTED. AFEBRILE. TUIRN AND REPOSITION. WILL CONTINUE TO MONITOR VITALS.
[2018-05-19] MEDS: ALBUTEROL FS 2.5 MG/0.5 ML VIAL.NEB NEB SCH ×3 (08:03→19:46)
[2018-05-19] MEDS: AMIODARONE HCL 200 MG TABLET PO SCH (08:19)
[2018-05-19] MEDS: ATORVASTATIN 40 MG TABLET PO SCH (08:19)
[2018-05-19] MEDS: AMLODIPINE BESYLATE 2.5 MG TABLET PO SCH (08:19)
[2018-05-19] MEDS: MONTELUKAST SODIUM (10MG) 10 MG TABLET PO SCH (08:20)
[2018-05-19] MEDS: predniSONE 20 MG TABLET PO SCH (08:20)
[2018-05-19] MEDS: LOSARTAN POTASSIUM 25 MG TABLET PO SCH (08:20)
[2018-05-19] MEDS: ISOSORBIDE DINITRATE (20MG) 20 MG TABLET PO SCH ×3 (08:20→16:20)
[2018-05-19] MEDS: INSULIN GLARGINE, 100 UNIT/ML CARTRIDGE SQ SCH ×2 (08:22→21:44)
[2018-05-19] MEDS: INSULIN REGULAR, HUMAN 100 UNIT/ML 3 ML VIAL SQ PRN ×3 (08:22→21:42)
--- NOTE | 2018-05-19 08:50 | NUR ---
ORALLY INTUBATED MALE PT ON AC MODE PER MD ORDER. SETTINGS ORDERED. ET-TUBE AT 26CM. B/S EQUAL. MODERATE AMOUNTS OF PALE YELLOW SPUTUM. ALARMS SET AND AUDIBLE AMBUBAG AT HEAD OF BED. Addendum: 05/19/18 at 0857 by TORIBIO TELLEZ RT Amended: Links added.
[2018-05-19] MEDS ORDERED: FUROSEMIDE 20 MG/2 ML VIAL IV SCH (09:00)
[2018-05-19] MEDS: BLOOD SUGAR DIAGNOSTIC 1 EACH STRIP VI SCH ×4 (09:17→22:00)
--- NOTE | 2018-05-19 09:41 | NUR ---
received pt from night, shift, sedated on Diprivan at 30mcg, SR, BBB, on the vent, lungs congested, BLE non pitting edema, NG to feeding tolerates well, F/C good urine output, restraints on, v/s stable, no pain, pt turned and repositioned.
[2018-05-19] MEDS: FUROSEMIDE 40 MG/4 ML VIAL IV SCH ×2 (12:04→16:19)
[2018-05-19] MEDS: DAKINS QUARTER STRENGTH (0.125%) 480 ML BOTTLE TOP SCH ×2 (12:07)
--- NOTE | 2018-05-19 12:31 | NUR ---
pt sedated, on Diprivan at 30mcg, on 90% fio2, v/s stable, no pain, pt turned and repositioned q2hrs.
--- NOTE | 2018-05-19 16:07 | NUR ---
pt sedated on Diprivan at 30mcg, SR, fio2 90%, sat well, tolerates feeding, good urine output, v/s stable, no pain, pt cleaned, changed and repositioned q2hrs.
--- NOTE | 2018-05-19 16:21 | NUR ---
Isosorbide 40mg no given, BP 97/61
[2018-05-19] MEDS: *INSULIN REGULAR(HUMULIN R)HUM 100 UNIT/ML VIAL SQ PRN ×2 (16:41→23:35)
--- NOTE | 2018-05-19 19:48 | NUR ---
PT RECEIVED ORALLY INTUBATED WITH A 7.5 ETT SECURED @ 26CM AT THE LIP. PT IS ON THE VENT WITH NOTED SETTINGS. BREATHING TX GIVEN , NO ADVERSE REACTION NOTED AT THIS TIME. VENT PLUGGED INTO RED OUTLET, VENT ALARMS ARE SET AND AUDIBLE WITH AMBU BAG@ BEDSIDE. SUPERVISOR HISTOLOGY CUFF PRESSURE NOTED. EQUAL BILATERAL BS NOTED. SUCTIONED MODERATE AMOUNT OF THICK YELLOW SECRETIONS. NO RESPIRATORY DISTRESS NOTED AT THIS TIME, WILL CONTINUE TO MONITOR.
[2018-05-19] MEDS: ENOXAPARIN SODIUM 40 MG/0.4 ML DISP.SYRIN SQ SCH (21:44)
[2018-05-20] VITALS (33 sets, daily range): BP systolic 92–124; BP diastolic 47–76
[2018-05-20] MEDS: DAKINS QUARTER STRENGTH (0.125%) 480 ML BOTTLE TOP SCH ×3 (00:11→23:15)
[2018-05-20] MEDS: PROPOFOL 100 ML IV PRN ×11 (00:30→23:15)
[2018-05-20] MEDS: IPRATROPIUM NEB FS 0.5 MG/2.5 ML AMPUL.NEB NEB SCH ×4 (01:27→19:39)
[2018-05-20] MEDS: PIPERACILLIN /TAZOBACTAM 3.375 G in IV D5W 100 ML IV SCH ×3 (04:02→20:48)
[2018-05-20 04:58] LABS: CALCIUM, SERUM 8.7 mg/dL (8.5-10.1); CREATININE 1.1 mg/dL (0.6-1.3); MAGNESIUM 2.1 mg/dL (1.8-2.4)
[2018-05-20 05:12] LABS: HEMATOCRIT 35 % (39-51); HEMOGLOBIN 11.4 g/dL (13.5-17.5); MEAN CORPUSCULAR VOLUME 89 fL (80-96); RED BLOOD CELL COUNT(AUTO) 3.95 MIL/uL (4.5-6.0); WHITE BLOOD COUNT (AUTO) 7.9 K/uL (4.3-11.0)
[2018-05-20 05:13] LABS: BASOPHILS % (AUTO) 0.2 % (0.0-2.0); EOSINOPHILS % (AUTO) 2.8 % (0.0-6.0); LYMPHOCYTES % (AUTO) 15.6 % (20.0-44.0); MEAN CORPUSCULAR HGB CONC 33 g/dl (31.0-36.0); MONOCYTES % (AUTO) 17.6 % (2.0-12.0); NEUTROPHILS % (AUTO) 63.8 % (43.0-81.0); PLATELET COUNT (AUTO) 151 /CMM (150-450)
[2018-05-20] MEDS: INSULIN REGULAR, HUMAN 100 UNIT/ML 3 ML VIAL SQ PRN ×3 (05:36→17:04)
--- NOTE | 2018-05-20 07:00 | NUR ---
RN NOTES RECEIVED PT ON BED , ORALLY INTUBATED, OPENS EYES AT TIMES ,TOLERATING CURRENT VENT SETTING WELL, NO DISTRESS NOTED, ON TELE, SR HR IN 80'S , GLUCERNA AT 30CC /HR RUNNING VIA R NARE NGT TOLERATING WELL, NO RESIDUAL NOTED, R AC IV SITE G 20 AND L UPPER ARM MIDLINE SITES CLEAN, DRY AND INTACT WITH DEPROVAN AT 30MCG/KG/HR RUNNING, THOMAS DRINING TO GRAVITY , SR UP x3, CALL LIGHT WITHIN EASY REACH, BED LOCKED AND IN LOWEST POSITION. CONTINUE TO MONITOR. Addendum: 05/20/18 at 0727 by FAITH CAMPBELL RN CORRECTION DIPRIVAN AT 30MCG/KG/HR
[2018-05-20] MEDS: BLOOD SUGAR DIAGNOSTIC 1 EACH STRIP VI SCH ×3 (07:52→17:04)
[2018-05-20] MEDS: ALBUTEROL FS 2.5 MG/0.5 ML VIAL.NEB NEB SCH ×3 (07:55→19:39)
[2018-05-20] MEDS: LOSARTAN POTASSIUM 25 MG TABLET PO SCH (08:06)
[2018-05-20] MEDS: predniSONE 20 MG TABLET PO SCH (08:07)
[2018-05-20] MEDS: AMIODARONE HCL 200 MG TABLET PO SCH (08:07)
[2018-05-20] MEDS: ATORVASTATIN 40 MG TABLET PO SCH (08:07)
[2018-05-20] MEDS: AMLODIPINE BESYLATE 2.5 MG TABLET PO SCH (08:07)
[2018-05-20] MEDS: ISOSORBIDE DINITRATE (20MG) 20 MG TABLET PO SCH ×3 (08:07→17:29)
[2018-05-20] MEDS: FUROSEMIDE 40 MG/4 ML VIAL IV SCH ×2 (08:07→17:02)
[2018-05-20] MEDS: MONTELUKAST SODIUM (10MG) 10 MG TABLET PO SCH (08:07)
[2018-05-20] MEDS: INSULIN GLARGINE, 100 UNIT/ML CARTRIDGE SQ SCH ×2 (08:11→20:56)
[2018-05-20] MEDS ORDERED: DEXTROSE 50%-WATER 50 ML DISP.SYRIN IV PRN (08:30)
[2018-05-20] MEDS ORDERED: INSULIN REGULAR, HUMAN 100 UNIT/ML 3 ML VIAL SQ PRN (08:30)
--- NOTE | 2018-05-20 09:16 | NUR ---
ORALLY INTUBATED MALE PT ON AC MODE PER MD ORDER. SETTINGS ORDERED. ET-TUBE AT 26CM. B/S EQUAL. MODERATE AMOUNTS OF PALE YELLOW SPUTUM. HAND HELD NEBULIZER GIVEN INLINE. ALARMS SET AND AUDIBLE AMBUBAG AT HEAD OF BED. Addendum: 05/20/18 at 0917 by TORIBIO TELLEZ RT Amended: Links added.
--- NOTE | 2018-05-20 11:00 | NUR ---
RN NOTES DR EPSTEIN NOTIFED REGARDING CONSTIPATION . NEW ORDER RECEIVED . CONTINUE TO MONITOR.
[2018-05-20] MEDS: LACTULOSE 10 G/15 ML UDC (PYXIS) PO SCH ×2 (11:16→17:02)
[2018-05-20] MEDS: POTASSIUM CHLORIDE 20 MEQ POWDER PACKET GT SCH ×3 (11:17→13:02)
[2018-05-20] MEDS ORDERED: BLOOD SUGAR DIAGNOSTIC 1 EACH STRIP VI SCH (12:00)
--- NOTE | 2018-05-20 14:00 | NUR ---
RN NOTES TOLERATING TF WELL, NO RESIDUAL NOTED , CONTINUE TO MONITOR .
[2018-05-20] MEDS: IV NS 0.9% 250 ML IV PRN (14:14)
--- NOTE | 2018-05-20 18:11 | NUR ---
RN NOTES NO SIGNIFICANT CHANGES NOTED ON THIS SHIFT, PT REMAINS INTUBATED, PROPOFOL AT 30MCG/KG/MIN RUNNING VIA L UPPER ARM MIDLINE, SR UP x3, CALL LIGHT WITHIN EASY REACH, BED LOCKED AND IN LOWEST POSITION, WILL ENDORSE TO REWIND OPERATOR NURSE FOR CONTINUITY OF CARE .
[2018-05-20] MEDS: Z GUARD REMEDY 2 OZ OINT TP PRN (18:43)
--- NOTE | 2018-05-20 19:40 | NUR ---
SUPERVISOR MALT HOUSE RCD PT W/DX COPD; PT IS SEDATED ON PROPOFOL @ 30 MCG/KG/MIN; INTUBATED 7.5 @ 26; W/VENT SETTINGS AC 16 600 80% +12; PT HAS LARGE AMOUNT OF WHITE THICK SECRETIONS; RENDERED ORAL CARE. R NARE NG TUBE WITH GLUCERNA @ 30 ML/HR; TOLERATING WELL.
--- NOTE | 2018-05-20 20:32 | NUR ---
RECEIVED PT INTUBATED 7.5 ETT SECURED AT 26CM AT THE LIP VIA ANCHOR FAST. NO RESP DISTRESS, PT TOLERATING VENT SETTINGS. BS DM, SX'D FOR MOD AMT OF THICK WHITE SECRETIONS. VENT ALARMS SET AND AUDIBLE. AMBU BAG AT BEDSIDE. VENT PLUGGED INTO RED OUTLET. WILL CONTINUE TO MONITOR. Addendum: 05/20/18 at 2031 by LUZMARIA LOPEZ RT Amended: Links added.
[2018-05-20] MEDS: ENOXAPARIN SODIUM 40 MG/0.4 ML DISP.SYRIN SQ SCH (20:57)
[2018-05-20] MEDS: GLUCERNA 1.2 1,000 ML BOTTLE GT PRN (23:14)
[2018-05-21] VITALS (39 sets, daily range): BP systolic 86–126; BP diastolic 53–83
[2018-05-21] MEDS: BLOOD SUGAR DIAGNOSTIC 1 EACH STRIP VI SCH ×4 (00:16→17:19)
[2018-05-21] MEDS: *INSULIN REGULAR(HUMULIN R)HUM 100 UNIT/ML VIAL SQ PRN ×2 (00:20→06:22)
[2018-05-21] MEDS: IPRATROPIUM NEB FS 0.5 MG/2.5 ML AMPUL.NEB NEB SCH ×4 (01:13→19:28)
[2018-05-21] MEDS: PROPOFOL 100 ML IV PRN ×10 (01:30→21:47)
[2018-05-21] MEDS: PIPERACILLIN /TAZOBACTAM 3.375 G in IV D5W 100 ML IV SCH ×3 (03:10→19:25)
[2018-05-21 04:46] LABS: BASOPHILS % (AUTO) 0.3 % (0.0-2.0); EOSINOPHILS % (AUTO) 1.4 % (0.0-6.0); HEMATOCRIT 36 % (39-51); HEMOGLOBIN 11.6 g/dL (13.5-17.5); LYMPHOCYTES % (AUTO) 9.8 % (20.0-44.0); MEAN CORPUSCULAR HGB CONC 33 g/dl (31.0-36.0); MEAN CORPUSCULAR VOLUME 89 fL (80-96); MONOCYTES # (AUTO) 1.5 /CMM (0.1-1.30); NEUTROPHILS # (AUTO) 7.4 /CMM (1.8-8.9); NEUTROPHILS % (AUTO) 73.5 % (43.0-81.0); PLATELET COUNT (AUTO) 156 /CMM (150-450); RED BLOOD CELL COUNT(AUTO) 4.02 MIL/uL (4.5-6.0); WHITE BLOOD COUNT (AUTO) 10.1 K/uL (4.3-11.0)
[2018-05-21 04:54] LABS: CALCIUM, SERUM 8.8 mg/dL (8.5-10.1); CREATININE 1.3 mg/dL (0.6-1.3); MAGNESIUM 2.3 mg/dL (1.8-2.4)
--- NOTE | 2018-05-21 06:51 | NUR ---
CLUB CONCIERGE PT REMAINED WITH STABLE VITAL SIGNS. RENDERED ORAL CARE, BED BATH AND WOUND TREATMENT. PT TOLERATED WELL. BL SW RESTRAINTS REMAIN ON DESPITE BEING ON PROPOFOL AT 30 MCG/KG/MIN PT IS NOTED WITH EPISODES OF WAKING UP.
[2018-05-21] MEDS: ALBUTEROL FS 2.5 MG/0.5 ML VIAL.NEB NEB SCH ×3 (08:16→19:28)
--- NOTE | 2018-05-21 08:16 | NUR ---
RT PATIENT REC'D ORALLY INTUBATED ON [facility] VENT WITH ORDERED SETTINGS JON WELL. VENT ALARMS CHECKED + AUDIBLE. CUFF PRESSURE CHECKED MERCHANDISING SPECIALIST. PATIENT AIRWAY SUCTIONED AND PATENT WITH SMALL AMT OF PALE SEMI-THICK SECRETIONS. PATIENT SEDATED AND IN NO DISTRESS AT THIS TIME. B/S RAINER SANTA. AMBU BAG AT HOB Addendum: 05/21/18 at 1104 by VANCE GOLDEN RT Amended: Links added.
[2018-05-21] MEDS: LACTULOSE 10 G/15 ML UDC (PYXIS) PO SCH ×2 (09:00→16:06)
[2018-05-21] MEDS: FUROSEMIDE 40 MG/4 ML VIAL IV SCH ×2 (09:03→16:07)
[2018-05-21] MEDS: predniSONE 20 MG TABLET PO SCH (09:04)
[2018-05-21] MEDS: AMLODIPINE BESYLATE 2.5 MG TABLET PO SCH (09:04)
[2018-05-21] MEDS: LOSARTAN POTASSIUM 25 MG TABLET PO SCH (09:04)
[2018-05-21] MEDS: AMIODARONE HCL 200 MG TABLET PO SCH (09:05)
[2018-05-21] MEDS: ATORVASTATIN 40 MG TABLET PO SCH (09:05)
[2018-05-21] MEDS: MONTELUKAST SODIUM (10MG) 10 MG TABLET PO SCH (09:05)
[2018-05-21] MEDS: ISOSORBIDE DINITRATE (20MG) 20 MG TABLET PO SCH ×3 (09:06→16:06)
[2018-05-21] MEDS: INSULIN GLARGINE, 100 UNIT/ML CARTRIDGE SQ SCH ×2 (09:08→21:44)
[2018-05-21 09:29] LABS: ABG BASE EXCESS 4.4 mmol/L; ABG OXYGEN SATURATION 93.6 % (92.0-98.5); ABG PCO2 45.2 mmHg (35.0-45.0); ABG PO2 73.5 mmHg (75.0-100.0); AaDO2 449.4 mmHg; COHb 0.3 % (0.5-1.5); MetHb 0.6 % (0.0-1.5); O2Hb 92.8 % (94.0-97.0); PEEP,BG 12 cm H2O; SITE, ABG Left Radial; VT, ABG 600 mL
[2018-05-21] MEDS ORDERED: POTASSIUM CL. PREMIX PERIPHER. 50 ML IV SCH (10:00)
[2018-05-21] MEDS ORDERED: POTASSIUM CHLORIDE 20 MEQ TAB.PRT.SR PO ONE (10:30)
[2018-05-21] MEDS: INSULIN REGULAR, HUMAN 100 UNIT/ML 3 ML VIAL SQ PRN ×2 (12:57→17:20)
[2018-05-21] MEDS: DAKINS QUARTER STRENGTH (0.125%) 480 ML BOTTLE TOP SCH (12:59)
[2018-05-21] MEDS ORDERED: POTASSIUM CHLORIDE 20 MEQ POWDER PACKET GT ONE (16:00)
--- NOTE | 2018-05-21 16:30 | NUR ---
RN NOTES RECEIVED PT FROM RAHUL FORREST. PT INTUBATED, ON VENT. NO RESPIRATORY DISTRESS NOTED. NO SOB NOTED. NO SIGNS OF PAIN NOTED. PT SEDATED, ON DIPRIVAN AT 30MCG/KG/MIN. RIGHT NGT IN PLACE. TOLERATING GTF WELL. GIGI MIDLINE AND RAC #[address] FC IN PLACE. NO HEMATURIA NOTED. BLE ELEVATED. WILL MONITOR.
--- NOTE | 2018-05-21 18:39 | NUR ---
RN CLOSING NOTES NO SIGNIFICANT CHANGE NOTED. KEPT COMFORTABLE. TOLERATING GTF WELL. REMAINS SEDATED. TX PROVIDED ORDERED. KEPT CLEAN AND DRY. BLE ELEVATED. WILL ENDORSE FOR CONTINUITY OF CARE.
--- NOTE | 2018-05-21 20:59 | NUR ---
RECEIVED PT INTUBATED 7.5 ETT SECURED AT 26CM AT THE LIP VIA ANCHOR FAST. NO RESP DISTRESS, PT TOLERATING VENT SETTINGS. SX'D FOR MOD AMT OF THICK WHITE SECRETIONS. VENT ALARMS SET AND AUDIBLE. AMBU BAG AT BEDSIDE. VENT PLUGGED INTO RED OUTLET. WILL CONTINUE TO MONITOR. Addendum: 05/21/18 at 2101 by LUZMARIA LOPEZ RT Amended: Links added.
[2018-05-21] MEDS: ENOXAPARIN SODIUM 40 MG/0.4 ML DISP.SYRIN SQ SCH (21:44)
[2018-05-22] VITALS (43 sets, daily range): BP systolic 98–123; BP diastolic 52–89
[2018-05-22] MEDS: PROPOFOL 100 ML IV PRN ×9 (00:46→23:00)
[2018-05-22] MEDS: IPRATROPIUM NEB FS 0.5 MG/2.5 ML AMPUL.NEB NEB SCH ×4 (01:54→19:40)
[2018-05-22] MEDS: PIPERACILLIN /TAZOBACTAM 3.375 G in IV D5W 100 ML IV SCH ×3 (03:32→20:24)
[2018-05-22 05:06] LABS: CALCIUM, SERUM 7.5 mg/dL (8.5-10.1); CREATININE 1.2 mg/dL (0.6-1.3); POTASSIUM 3.8 mmol/L (3.5-5.1)
[2018-05-22] MEDS: BLOOD SUGAR DIAGNOSTIC 1 EACH STRIP VI SCH ×4 (06:19→17:15)
[2018-05-22] MEDS: INSULIN REGULAR, HUMAN 100 UNIT/ML 3 ML VIAL SQ PRN ×3 (06:23→17:18)
--- NOTE | 2018-05-22 07:00 | NUR ---
remains intubated,sats consistently 99% on 80%, continues to tolerate fdg.titrating diprivan down, pt more awake but not moving.vss.
--- NOTE | 2018-05-22 07:10 | NUR ---
RN NOTES RECEIVED PT INTUBATED, ON VENT. NO RESPIRATORY DISTRESS NOTED. NO SOB NOTED. NO SIGNS OF PAIN NOTED. PT SEDATED, ON DIPRIVAN AT 20MCG/KG/MIN. WILL TITRATE ACCORDINGLY. RIGHT NGT IN PLACE. TOLERATING GTF WELL. NO RESIDUAL NOTED. GIGI MIDLINE AND RAC #[address] FC IN PLACE. NO HEMATURIA NOTED. BLE ELEVATED. WILL MONITOR.
[2018-05-22] MEDS: ALBUTEROL FS 2.5 MG/0.5 ML VIAL.NEB NEB SCH ×3 (07:30→19:39)
--- NOTE | 2018-05-22 07:50 | NUR ---
RT PATIENT REC'D ORALLY INTUBATED ON [facility] VENT WITH ORDERED SETTINGS JON WELL. VENT ALARMS CHECKED + AUDIBLE. CUFF PRESSURE CHECKED ACCOUNTS RECEIVABLE SPECIALIST. PATIENT AIRWAY SUCTIONED AND PATENT WITH SMALL AMT OF PALE SEMI-THICK SECRETIONS. PATIENT SEDATED AND IN NO DISTRESS AT THIS TIME. B/S RAINER SANTA. AMBU BAG AT [facility] Addendum: 05/22/18 at 0937 by VANCE GOLDEN RT Amended: Links added.
[2018-05-22] MEDS: FUROSEMIDE 40 MG/4 ML VIAL IV SCH ×2 (08:21→16:23)
[2018-05-22] MEDS: LACTULOSE 10 G/15 ML UDC (PYXIS) PO SCH ×2 (08:21→16:23)
[2018-05-22 08:22] LABS: ABG BASE EXCESS 6.7 mmol/L; ABG OXYGEN SATURATION 90.7 % (92.0-98.5); ABG PCO2 51.5 mmHg (35.0-45.0); ABG PH 7.417 (7.350-7.450); ABG PO2 64.3 mmHg (75.0-100.0); COHb 0.3 % (0.5-1.5); MetHb 0.4 % (0.0-1.5); O2Hb 90.1 % (94.0-97.0); PEEP,BG 12 cm H2O; SITE, ABG Right Radial; VENT MODE, BG AC 16 600 80% +12; VT, ABG 600 mL
[2018-05-22] MEDS: AMIODARONE HCL 200 MG TABLET PO SCH (08:24)
[2018-05-22] MEDS: AMLODIPINE BESYLATE 2.5 MG TABLET PO SCH (08:24)
[2018-05-22] MEDS: LOSARTAN POTASSIUM 25 MG TABLET PO SCH (08:24)
[2018-05-22] MEDS: ATORVASTATIN 40 MG TABLET PO SCH (08:24)
[2018-05-22] MEDS: ISOSORBIDE DINITRATE (20MG) 20 MG TABLET PO SCH ×3 (08:25→16:23)
[2018-05-22] MEDS: MONTELUKAST SODIUM (10MG) 10 MG TABLET PO SCH (08:25)
[2018-05-22] MEDS: INSULIN GLARGINE, 100 UNIT/ML CARTRIDGE SQ SCH ×2 (08:27→21:23)
[2018-05-22 08:51] LABS: BASOPHILS % (AUTO) 0.5 % (0.0-2.0); EOSINOPHILS % (AUTO) 0.8 % (0.0-6.0); HEMATOCRIT 36 % (39-51); HEMOGLOBIN 11.7 g/dL (13.5-17.5); LYMPHOCYTES # (AUTO) 1.2 /CMM (0.8-4.8); LYMPHOCYTES % (AUTO) 12.6 % (20.0-44.0); MEAN CORPUSCULAR HGB CONC 33 g/dl (31.0-36.0); MEAN CORPUSCULAR VOLUME 90 fL (80-96); MONOCYTES # (AUTO) 1.1 /CMM (0.1-1.30); MONOCYTES % (AUTO) 12.3 % (2.0-12.0); NEUTROPHILS # (AUTO) 6.9 /CMM (1.8-8.9); NEUTROPHILS % (AUTO) 73.8 % (43.0-81.0); PLATELET COUNT (AUTO) 133 /CMM (150-450); RED BLOOD CELL COUNT(AUTO) 3.98 MIL/uL (4.5-6.0); WHITE BLOOD COUNT (AUTO) 9.3 K/uL (4.3-11.0)
[2018-05-22] MEDS ORDERED: predniSONE 20 MG TABLET PO SCH (09:00)
--- NOTE | 2018-05-22 09:00 | NUR ---
RN NOTES SEEN AND EXAMINED BY DR EPSTEIN. PT REMAINS INTUBATED, ON VENT. NO RESPIRATORY DISTRESS NOTED. PT ON SEDATION VACATION. PT AWAKE, ABLE TO FOLLOW SIMPLE COMMANDS. PT ON PEEP+12. WAITING FOR SECURITY POLICE. DR EPSTEIN AWARE OF LATEST BMP AND CXR RESULT. AWARE OF LAST CBC RESULT WAS FROM 05/21/19. NO NEW ORDER MADE. WILL MONITOR
[2018-05-22] MEDS: GLUCERNA 1.2 1,000 ML BOTTLE GT PRN (10:55)
--- NOTE | 2018-05-22 11:00 | NUR ---
RN NOTES SEEN AND EXAMINED BY DR DUKE. PT REMAINS INTUBATED, ON VENT. NO RESPIRATORY DISTRESS NOTED. PT ALERT AND ABLE TO FOLLOW COMMANDS DURING SEDATION VACATION. 02 SAT 90%. VENT SETTINGS FOLLOWS: AC16, TV500, FI01 80%, PEEP +12. PER DR DUKE, UNABLE TO WEAN. WILL CONTINUE TO MONITOR.
[2018-05-22] MEDS: DAKINS QUARTER STRENGTH (0.125%) 480 ML BOTTLE TOP SCH ×2 (11:33)
--- NOTE | 2018-05-22 18:21 | NUR ---
RN CLOSING NOTES NO SIGNIFICANT CHANGE NOTED. PT REMAINS INTUBATED, ON VENT. KEPT COMFORTABLE. TOLERATING GTF WELL. REMAINS SEDATED, TITRATED ACCORDINGLY. TX PROVIDED ORDERED. KEPT CLEAN AND DRY. BLE ELEVATED. WILL ENDORSE FOR CONTINUITY OF CARE.
--- NOTE | 2018-05-22 19:30 | NUR ---
BAFFLE INSTALLER NOTE PT RECEIVED IN BED SEDATED AND INTUBATED. ETT 7.5 AND 26 @ THE LIP. ON MECH VENT WITH SETTINGS TOLERATED AND SATURATING 97%. HOB ELEVATED AND ON ASPIRATION PRECAUTIONS. BREATHING UNLABORED. TELE-SR 78. GTF WELL TOLERATED WITHOUT RESIDUALS NOTED. IV GIGI MIDLINE CLEAN, PATENT WITH DIP INFUSING @ 30MCG/MIN. GUZMAN CATHETER IN PLACE AND DRAINING BY GRAVITY. WILL CONTINUE TO MONITOR.
[2018-05-22] MEDS: ENOXAPARIN SODIUM 40 MG/0.4 ML DISP.SYRIN SQ SCH (21:23)
--- NOTE | 2018-05-22 21:47 | NUR ---
RECEIVED PT INTUBATED 7.5 ETT SECURED AT 26CM AT THE LIP VIA ANCHOR FAST. NO RESP DISTRESS, PT TOLERATING VENT SETTINGS. SX'D FOR MOD AMT OF THICK WHITE SECRETIONS. VENT ALARMS SET AND AUDIBLE. AMBU BAG AT BEDSIDE. VENT PLUGGED INTO RED OUTLET. WILL CONTINUE TO MONITOR. Addendum: 05/22/18 at 2147 by LUZMARIA LOPEZ RT Amended: Links added.
[2018-05-23] VITALS (38 sets, daily range): BP systolic 87–149; BP diastolic 52–86
[2018-05-23] MEDS: BLOOD SUGAR DIAGNOSTIC 1 EACH STRIP VI SCH ×5 (00:41→23:40)
[2018-05-23] MEDS: DAKINS QUARTER STRENGTH (0.125%) 480 ML BOTTLE TOP SCH ×3 (00:42→23:41)
[2018-05-23] MEDS: INSULIN REGULAR, HUMAN 100 UNIT/ML 3 ML VIAL SQ PRN ×5 (00:48→23:44)
[2018-05-23] MEDS: IPRATROPIUM NEB FS 0.5 MG/2.5 ML AMPUL.NEB NEB SCH ×4 (01:01→20:07)
[2018-05-23] MEDS: PROPOFOL 100 ML IV PRN ×10 (01:53→23:57)
[2018-05-23] MEDS: IV NS 0.9% 250 ML IV PRN ×2 (04:20→23:01)
[2018-05-23 05:23] LABS: CALCIUM, SERUM 8.8 mg/dL (8.5-10.1); MAGNESIUM 2.1 mg/dL (1.8-2.4); POTASSIUM 3.2 mmol/L (3.5-5.1)
--- NOTE | 2018-05-23 07:26 | NUR ---
received patient from rn. since last time with patient o2 needs have increased. fi02 80% peep 12 saturating 91-94%. .11/26 lip with right nare ngt with feeding running per order no residual noted. patient sedated on diprivan 30mcg/kg/min awakens easily with movement but falls asleep quickly. tele nsr. peterson cath in place draining to gravity. midline c/d/i/p. noted with right buttock wound covered per order c/d/i with iv tko ns. temp 99.0 and bp stable.safety, skin, aspiration precautions in place and will monitor.
--- NOTE | 2018-05-23 07:29 | NUR ---
PLASMA PROCESSOR NOTE PT REMAINED STABLE DURING SHIFT. NO ACUTE DISTRESS NOTED. VENT SETTINGS WELL TOLERATED. SUCTIONED NEEDED. KEPT CLEAN AND DRY. NGT IN PLACE AND FEEDING WELL TOLERATED. HOB REMAINED ELEVATED. WILL ENDORSE TO NEXT SHIFT FOR CONTINUITY OF CARE.
[2018-05-23] MEDS: ALBUTEROL FS 2.5 MG/0.5 ML VIAL.NEB NEB SCH ×3 (07:44→20:07)
--- NOTE | 2018-05-23 08:00 | NUR ---
DR EPSTEIN AT BEDSIDE.
[2018-05-23] MEDS: LACTULOSE 10 G/15 ML UDC (PYXIS) PO SCH ×2 (08:01→16:44)
--- NOTE | 2018-05-23 08:01 | NUR ---
holding lactulose as per order since patient had a bm
[2018-05-23] MEDS: MONTELUKAST SODIUM (10MG) 10 MG TABLET PO SCH (08:06)
[2018-05-23] MEDS: ATORVASTATIN 40 MG TABLET PO SCH (08:06)
[2018-05-23] MEDS: FUROSEMIDE 40 MG/4 ML VIAL IV SCH ×2 (08:06→16:44)
[2018-05-23] MEDS: AMLODIPINE BESYLATE 2.5 MG TABLET PO SCH (08:06)
[2018-05-23] MEDS: AMIODARONE HCL 200 MG TABLET PO SCH (08:06)
[2018-05-23] MEDS: LOSARTAN POTASSIUM 25 MG TABLET PO SCH (08:06)
[2018-05-23] MEDS: ISOSORBIDE DINITRATE (20MG) 20 MG TABLET PO SCH ×3 (08:09→17:00)
[2018-05-23] MEDS ORDERED: POTASSIUM CHLORIDE 20 MEQ TAB.PRT.SR PO ONE (08:30)
[2018-05-23] MEDS: INSULIN GLARGINE, 100 UNIT/ML CARTRIDGE SQ SCH ×2 (08:33→20:16)
--- NOTE | 2018-05-23 09:00 | NUR ---
DR GUEVARA AT BEDSIDE.
--- NOTE | 2018-05-23 09:15 | NUR ---
PATIENT TOLERATING SEDATION VACATION. FOLLOWING COMMANDS. MOVING ALL EXTREMITIES. TRACKING. NODDING Y/N TO QUESTIONS ASKED OF HIM. PER DR GUEVARA NO WEANING TRIAL TODAY PATIENT CONDITION DETERIORATED OVER WEEKEND. RESUMING DIPRIVAN PER PROTOCOL.
[2018-05-23 09:28] LABS: ABG BASE EXCESS 8.6 mmol/L; ABG OXYGEN SATURATION 90.7 % (92.0-98.5); ABG PCO2 51.2 mmHg (35.0-45.0); ABG PH 7.441 (7.350-7.450); ABG PO2 59.9 mmHg (75.0-100.0); AaDO2 456.7 mmHg; COHb 0.3 % (0.5-1.5); MetHb 0.6 % (0.0-1.5); O2Hb 89.9 % (94.0-97.0); PEEP,BG 12 cm H2O; SITE, ABG Right Radial; VT, ABG 600 mL
[2018-05-23] MEDS: Z GUARD REMEDY 2 OZ OINT TP PRN (11:32)
[2018-05-23] MEDS: GLUCERNA 1.2 1,000 ML BOTTLE GT PRN (11:35)
--- NOTE | 2018-05-23 12:59 | NUR ---
PER CM PATIENT DOES HAVE A FAMILY MEMBER WHO IS DECISION MAKER. HEARD BRENDA - STEP FATHER. [phone]. CALLED AND SPOKE WITH HIM. NOTIFIED DR GUEVARA OF INFORMATION.
--- NOTE | 2018-05-23 16:48 | NUR ---
PATIENT SATURATION IMPROVED SINCE AM. 97% ON 80%FI02
--- NOTE | 2018-05-23 18:48 | NUR ---
NOTIFIED MD EPSTEIN PATIENT HR ELEVATED AT REST 110-120'S ALL OTHER VS STABLE. PER MD GAY NORVASC 5MG DAILY AND STARTCARDIZEM 30MG GT Q6H SHERITA. HOLD FOR SBP UNDER 100 AND HR UNDER 60
[2018-05-23] MEDS ORDERED: DILTIAZEM HCL 30 MG TABLET GT SCH (19:00)
--- NOTE | 2018-05-23 19:24 | NUR ---
NOTIFIED DR EPSTEIN PATIENT SBP 90'S AND NOW HR 130'S-140'S. PER MD VICTOR HUGO PAL AND ORDER METOPROLOL 25MG BID GTUBE. NO PARAMETERS FOR BP. OK TO GIVE NOW.
--- NOTE | 2018-05-23 19:35 | NUR ---
ALL DUE MEDS GIVEN AND ALL NEEDS MET. TOLERATING VENT ORDERED. TOLERATING TUBE FEEDING NO RESIDUAL NOTED. CALLED PHARMACY SPOKE WITH CONCHA TO VERIFY METOPROLOL. PATIENT HR SUSTAINING SINUS TACH 130'S -140'S. SAFETY, SKIN, AND ASPIRATION PRECAUTIONS IN PLACE AND MONITORED THROUGHOUT DAY. CARE ENDORSED TO DIRECTOR BUSINESS MANAGEMENT FOR DAVIAN.
[2018-05-23] MEDS: METOPROLOL TARTRATE 25 MG TABLET PO SCH ×2 (19:43→20:04)
[2018-05-23] MEDS: ENOXAPARIN SODIUM 40 MG/0.4 ML DISP.SYRIN SQ SCH (20:13)
--- NOTE | 2018-05-23 20:13 | NUR ---
pt received on vent via ett with charted settings. airway patent. secure via anchorfast. pt on sedation. ambu bag at bedside. alarms set and audible, disconnect alarms checked plugged into red outlet suctioned a small amount of thin white secretions. pt receiving breathing tx q6 at this time. pt hob at 30 degrees. suctioned oral secretion from pts mouth Addendum: 05/23/18 at 2015 by MARY YU Amended: Links added.
[2018-05-23] MEDS: HYDROMORPHONE 1 MG/1 ML DISP.SYRIN IV PRN (22:34)
--- NOTE | 2018-05-23 22:40 | NUR ---
SCREENING UNIT REGISTERED NURSE NOTE PT NOTED WITH SINUS TACH ON THE MONITOR. GAVE DILAUDID 1MG IVP. WILL MONITOR. Addendum: 05/24/18 at 0546 by NICOLÁS BILLY RN CORE TEMP 100.0. COOLING MEASURES IMPLEMENTED.
[2018-05-24] VITALS (51 sets, daily range): BP systolic 91–142; BP diastolic 44–90
[2018-05-24] MEDS: ACETAMINOPHEN 325 MG TABLET PO PRN (01:04)
--- NOTE | 2018-05-24 01:10 | NUR ---
BOILER WATER TESTER NOTE REPOSITIONED PT. STILL NOTED TO BE IN SINUS TACH 130'S. TYLENOL GIVEN. WILL MONITOR.
[2018-05-24] MEDS: IPRATROPIUM NEB FS 0.5 MG/2.5 ML AMPUL.NEB NEB SCH ×4 (01:56→19:45)
[2018-05-24] MEDS: PROPOFOL 100 ML IV PRN ×8 (02:26→23:27)
--- NOTE | 2018-05-24 03:36 | NUR ---
CHILD CARE TEACHER NOTE PT NOTED SUSTAINED SINUS TACH 130'S AND SBP IN THE LOW 90'S. SPOKE WITH WITH ORDERS TO GIVE BOLUS OF NS 500ML NOW AND START ZOSYN 3.375 Q8H. ORDERS NOTED AND CARRIED OUT. WILL MONITOR.
[2018-05-24] MEDS ORDERED: IV NS 0.9% 500 ML IV ONE (04:00)
[2018-05-24] MEDS ORDERED: PIPERACILLIN /TAZOBACTAM 3.375 G in IV D5W 50 ML IV SCH (05:00)
[2018-05-24 05:05] LABS: BASOPHILS # (AUTO) 0.1 /CMM (0.0-0.2); BASOPHILS % (AUTO) 0.7 % (0.0-2.0); HEMATOCRIT 33 % (39-51); HEMOGLOBIN 10.7 g/dL (13.5-17.5); LYMPHOCYTES # (AUTO) 1.6 /CMM (0.8-4.8); LYMPHOCYTES % (AUTO) 19.3 % (20.0-44.0); MEAN CORPUSCULAR HGB CONC 32 g/dl (31.0-36.0); MEAN CORPUSCULAR VOLUME 89 fL (80-96); MONOCYTES # (AUTO) 0.9 /CMM (0.1-1.30); MONOCYTES % (AUTO) 10.1 % (2.0-12.0); NEUTROPHILS # (AUTO) 5.7 /CMM (1.8-8.9); NEUTROPHILS % (AUTO) 67.9 % (43.0-81.0); PLATELET COUNT (AUTO) 152 /CMM (150-450); RED BLOOD CELL COUNT(AUTO) 3.74 MIL/uL (4.5-6.0); WHITE BLOOD COUNT (AUTO) 8.4 K/uL (4.3-11.0)
[2018-05-24] MEDS ORDERED: PIPERACILLIN /TAZOBACTAM 3.375 G VIAL IV ONE (05:05)
[2018-05-24] MEDS: BLOOD SUGAR DIAGNOSTIC 1 EACH STRIP VI SCH ×4 (05:07→23:27)
[2018-05-24 05:19] LABS: CALCIUM, SERUM 8.6 mg/dL (8.5-10.1); CREATININE 1.3 mg/dL (0.6-1.3); POTASSIUM 3.4 mmol/L (3.5-5.1)
[2018-05-24] MEDS: INSULIN REGULAR, HUMAN 100 UNIT/ML 3 ML VIAL SQ PRN (05:26)
--- NOTE | 2018-05-24 06:59 | NUR ---
HORTICULTURAL WORKER NOTE PT REMAINED STABLE DURING SHIFT. PT AFEBRILE WITH 97.9 CORE TEMP AT THIS TIME. TELE-SINUS TACH 115. VENT SETTINGS WELL TOLERATED. REMAINS SEDATED ON DIP @30MCG/MIN. ALL NEEDS ATTENDED TO PROMPTLY. KEPT CLEAN AND DRY. HOB REMAINED ELEVATED. WILL ENDORSE TO NEXT SHIFT FOR CONTINUITY OF CARE.
[2018-05-24] MEDS: ALBUTEROL FS 2.5 MG/0.5 ML VIAL.NEB NEB SCH ×3 (07:31→19:45)
--- NOTE | 2018-05-24 07:58 | NUR ---
RT PATIENT REC'D ORALLY INTUBATED ON [facility] VENT WITH ORDERED SETTINGS JON WELL. VENT ALARMS CHECKED + AUDIBLE. CUFF PRESSURE CHECKED NITRATE OPERATOR. PATIENT AIRWAY SUCTIONED AND PATENT WITH SMALL AMT OF PALE SEMI-THICK SECRETIONS. PATIENT SEDATED AND IN NO DISTRESS AT THIS TIME. B/S RAINER SANTA. AMBU BAG AT [facility] Addendum: 05/24/18 at 0926 by VANCE GOLDEN RT Amended: Links added.
[2018-05-24 09:08] LABS: ABG BASE EXCESS 4.6 mmol/L; ABG OXYGEN SATURATION 82.3 % (92.0-98.5); ABG PCO2 45.4 mmHg (35.0-45.0); ABG PH 7.432 (7.350-7.450); ABG PO2 48.6 mmHg (75.0-100.0); AaDO2 329.3 mmHg; COHb 0.3 % (0.5-1.5); MetHb 0.9 % (0.0-1.5); O2Hb 81.3 % (94.0-97.0); SITE, ABG Right Radial
[2018-05-24] MEDS: LOSARTAN POTASSIUM 25 MG TABLET PO SCH (09:11)
[2018-05-24] MEDS: FUROSEMIDE 40 MG/4 ML VIAL IV SCH ×2 (09:11→17:51)
[2018-05-24] MEDS: METOPROLOL TARTRATE 25 MG TABLET PO SCH ×2 (09:11→21:01)
[2018-05-24] MEDS: ISOSORBIDE DINITRATE (20MG) 20 MG TABLET PO SCH ×3 (09:11→17:51)
[2018-05-24] MEDS: LACTULOSE 10 G/15 ML UDC (PYXIS) PO SCH ×2 (09:11→17:50)
[2018-05-24] MEDS: ATORVASTATIN 40 MG TABLET PO SCH (09:11)
[2018-05-24] MEDS: AMIODARONE HCL 200 MG TABLET PO SCH (09:12)
[2018-05-24] MEDS: INSULIN GLARGINE, 100 UNIT/ML CARTRIDGE SQ SCH ×2 (09:13→21:03)
[2018-05-24] MEDS: MONTELUKAST SODIUM (10MG) 10 MG TABLET PO SCH (09:14)
--- NOTE | 2018-05-24 09:24 | NUR ---
PEEP LOWERED TO 10 FIO2 80% PER DR GUEVARA Addendum: 05/24/18 at 0926 by VANCE YU Amended: Links added.
--- NOTE | 2018-05-24 09:40 | NUR ---
RUSSET REPAIRER- SEDATION VACATION PATIENT TOLERATING SEDATION VACATION. FOLLOWING COMMANDS. MOVING ALL EXTREMITIES. TRACKING. NODDING Y/N TO QUESTIONS ASKED OF HIM.
[2018-05-24] MEDS ORDERED: POTASSIUM CHLORIDE 20 MEQ TAB.PRT.SR PO ONE (11:00)
[2018-05-24] MEDS: PIPERACILLIN /TAZOBACTAM 3.375 G in IV D5W 100 ML IV SCH ×2 (11:26→17:49)
[2018-05-24] MEDS: DAKINS QUARTER STRENGTH (0.125%) 480 ML BOTTLE TOP SCH ×2 (11:27→23:13)
[2018-05-24] MEDS: HYDROMORPHONE 1 MG/1 ML DISP.SYRIN IV PRN (14:43)
[2018-05-24] MEDS: *INSULIN REGULAR(HUMULIN R)HUM 100 UNIT/ML VIAL SQ PRN ×2 (17:50→23:35)
--- NOTE | 2018-05-24 20:00 | NUR ---
RESEARCH SOFTWARE ENGINEER - NOTES - PT AFEBRILE WITH 100.3 CORE TEMP AT THIS TIME. A FLUTTER. VENT SETTINGS WELL TOLERATED. REMAINS SEDATED ON DIP @ 35 MCG/MIN. ALL NEEDS ATTENDED TO PROMPTLY. KEPT CLEAN AND DRY. HOB REMAINED ELEVATED. WILL ENDORSE TO NEXT SHIFT FOR CONTINUITY OF CARE.
[2018-05-24] MEDS: ENOXAPARIN SODIUM 40 MG/0.4 ML DISP.SYRIN SQ SCH (21:02)
--- NOTE | 2018-05-24 22:37 | NUR ---
12 lead ekg done, reads aflutter with variable av block, results relayed to Dr. Valadez, no new orders at this time Addendum: 05/25/18 at 0551 by OLIVE LOMELI RN enrique sutton an epic patient, dr schuler notified about aflutter, new orders received.
[2018-05-24] MEDS ORDERED: DIGOXIN INJ 0.5 MG/2 ML AMPUL IV ONE (23:00)
[2018-05-24] MEDS ORDERED: METOPROLOL TARTRATE 50 MG TABLET PO SCH (23:00)
[2018-05-25] VITALS (54 sets, daily range): BP systolic 88–150; BP diastolic 41–85
[2018-05-25] MEDS ORDERED: VANCOMYCIN 1 GM VIAL ONE (00:30)
[2018-05-25] MEDS ORDERED: VANCOMYCIN 2 GM in IV NS 0.9% 500 ML IV ONE (00:30)
[2018-05-25] MEDS ORDERED: VANCOMYCIN 2 GM in IV D5W 500 ML IV ONE (01:01)
[2018-05-25] MEDS: ACETAMINOPHEN 325 MG TABLET PO PRN (01:42)
[2018-05-25] MEDS: PIPERACILLIN /TAZOBACTAM 3.375 G in IV D5W 100 ML IV SCH ×3 (02:08→17:25)
[2018-05-25] MEDS: IPRATROPIUM NEB FS 0.5 MG/2.5 ML AMPUL.NEB NEB SCH ×4 (02:29→20:09)
[2018-05-25] MEDS: PROPOFOL 100 ML IV PRN ×9 (02:39→23:00)
[2018-05-25] MEDS: GLUCERNA 1.2 1,000 ML BOTTLE GT PRN (05:02)
[2018-05-25 05:12] LABS: BASOPHILS # (AUTO) 0.1 /CMM (0.0-0.2); BASOPHILS % (AUTO) 0.8 % (0.0-2.0); HEMATOCRIT 34 % (39-51); HEMOGLOBIN 11.2 g/dL (13.5-17.5); LYMPHOCYTES # (AUTO) 1.3 /CMM (0.8-4.8); LYMPHOCYTES % (AUTO) 14.1 % (20.0-44.0); MEAN CORPUSCULAR HGB CONC 33 g/dl (31.0-36.0); MEAN CORPUSCULAR VOLUME 88 fL (80-96); MONOCYTES # (AUTO) 0.8 /CMM (0.1-1.30); MONOCYTES % (AUTO) 8.6 % (2.0-12.0); NEUTROPHILS # (AUTO) 6.8 /CMM (1.8-8.9); NEUTROPHILS % (AUTO) 74.5 % (43.0-81.0); PLATELET COUNT (AUTO) 142 /CMM (150-450); RED BLOOD CELL COUNT(AUTO) 3.84 MIL/uL (4.5-6.0); WHITE BLOOD COUNT (AUTO) 9.2 K/uL (4.3-11.0)
[2018-05-25 05:43] LABS: CALCIUM, SERUM 8.9 mg/dL (8.5-10.1); POTASSIUM 3.1 mmol/L (3.5-5.1)
[2018-05-25 05:44] LABS: CREATININE 1.7 mg/dL (0.6-1.3)
[2018-05-25] MEDS: BLOOD SUGAR DIAGNOSTIC 1 EACH STRIP VI SCH ×3 (06:16→17:23)
[2018-05-25] MEDS: *INSULIN REGULAR(HUMULIN R)HUM 100 UNIT/ML VIAL SQ PRN (06:20)
--- NOTE | 2018-05-25 07:35 | NUR ---
RN NOTES RECEIVED PATIENT, RESPONSIVE ONLY TO PAINFUL STIMULI AT THIS TIME WITH DIPRIVAN DRIP FOR SEDATION, CONTINUED ON VENTILATOR TOLERATING WELL. IN NO APPARENT PAIN OR DISCOMFORT AT THIS TIME. GUZMAN CATHETER DRAINING TEA COLORED URINE. GIGI AND RAC IV ACCESS PATENT AND INTACT NO REDNESS OR INFILTRATION NOTED. KEPT CLEAN DRY AND COMFORTABLE CALL LIGHT WITHIN EASY REACH, WILL CONTINUE TO MONITOR
[2018-05-25] MEDS ORDERED: POTASSIUM CHLORIDE 20 MEQ TAB.PRT.SR PO ONE (08:30)
[2018-05-25] MEDS ORDERED: FEE PK DOSING 1 MIN EA MC ONE (08:38)
[2018-05-25] MEDS: ATORVASTATIN 40 MG TABLET PO SCH (08:41)
[2018-05-25] MEDS: ISOSORBIDE DINITRATE (20MG) 20 MG TABLET PO SCH ×3 (08:42→17:20)
[2018-05-25] MEDS: AMIODARONE HCL 200 MG TABLET PO SCH (08:42)
[2018-05-25] MEDS: MONTELUKAST SODIUM (10MG) 10 MG TABLET PO SCH (08:42)
[2018-05-25] MEDS: METOPROLOL TARTRATE 25 MG TABLET PO SCH ×2 (08:42→21:38)
[2018-05-25] MEDS: INSULIN GLARGINE, 100 UNIT/ML CARTRIDGE SQ SCH ×2 (08:51→21:00)
[2018-05-25] MEDS: FUROSEMIDE 40 MG/4 ML VIAL IV SCH (08:53)
[2018-05-25] MEDS: ENOXAPARIN SODIUM 60 MG/0.6 ML DISP.SYRIN SQ SCH ×2 (08:54→21:00)
[2018-05-25] MEDS: ALBUTEROL FS 2.5 MG/0.5 ML VIAL.NEB NEB SCH ×3 (09:00→20:09)
--- NOTE | 2018-05-25 09:00 | NUR ---
RN NOTES/ HEART RHYTHM PT CONTINUES IN A FLUTTER, DR. EPSTEIN MADE AWARE PER DR. EPSTEIN WILL ADJUST MEDICATIONS AND CONTINUE TO MONITOR
[2018-05-25] MEDS: POTASSIUM CHLORIDE 20 MEQ POWDER PACKET PO SCH ×2 (10:00→11:28)
[2018-05-25] MEDS: LACTULOSE 10 G/15 ML UDC (PYXIS) PO SCH ×2 (11:27→17:20)
[2018-05-25 12:22] LABS: ABG BASE EXCESS 2.4 mmol/L; ABG OXYGEN SATURATION 91.9 % (92.0-98.5); ABG PCO2 39.1 mmHg (35.0-45.0); ABG PH 7.449 (7.350-7.450); ABG PO2 70.6 mmHg (75.0-100.0); AaDO2 314.2 mmHg; MetHb 0.3 % (0.0-1.5); O2Hb 91.6 % (94.0-97.0); PEEP,BG 10 cm H2O; SITE, ABG Right Radial; VT, ABG 700 mL
[2018-05-25] MEDS: DILTIAZEM HCL 30 MG TABLET PO SCH ×2 (12:50→17:21)
[2018-05-25] MEDS: DAKINS QUARTER STRENGTH (0.125%) 480 ML BOTTLE TOP SCH (12:51)
[2018-05-25] MEDS: INSULIN REGULAR, HUMAN 100 UNIT/ML 3 ML VIAL SQ PRN ×2 (13:00→17:31)
--- NOTE | 2018-05-25 19:30 | NUR ---
RN NOTES PATIENT, RESPONSIVE ONLY TO PAINFUL STIMULI AT THIS TIME WITH DIPRIVAN DRIP FOR SEDATION, CONTINUED ON VENTILATOR TOLERATING WELL. IN NO APPARENT PAIN OR DISCOMFORT AT THIS TIME. GUZMAN CATHETER DRAINING TEA COLORED URINE. GIGI AND RAC IV ACCESS PATENT AND INTACT NO REDNESS OR INFILTRATION NOTED. KEPT CLEAN DRY AND COMFORTABLE CALL LIGHT WITHIN EASY REACH, ENDORSED TO NEXT SHIFT FOR CONTINUITY OF CARE Addendum: 05/25/18 at 2007 by BLAKE VO RN RN NOTES PER DR. GAGE PT TO HAVE BEDSIDE TRACHEOSTOMY PLACEMENT TOMORROW, ENDORSED TO NEXT SHIFT FOR CONSENT
--- NOTE | 2018-05-25 19:30 | NUR ---
SHELLFISH SORTER NOTE PT RECEIVED SEDATED. INTUBATED WITH ETT 7.5 AND 26 AT THE LIP SECURED IN PLACE. VENT SETTINGS WELL TOLERATED AND SATURATING 100%. HOB ELEVATED AND ON ASPIRATION PRECAUTIONS. NGT IN R NARE IN PLACE WITH FEEDING WELL TOLERATED AND NO RESIDUALS NOTED. TELE- AFLUTTER 116 UNCONTROLLED. GIGI MIDLINE CLEAN AND PATENT WITH DIP @30 MCG/MIN INFUSING. GUZMAN CATHETER IN PLACE AND DRAINING BY GRAVITY. ENDORSED TO CALL FAMILY FOR CONSENT OF TRACHEOSTOMY PLACEMENT TOMORROW. ALSO ENDORSED TO HOLD LOVENOX. WILL CONTINUE TO MONITOR.
[2018-05-25] MEDS ORDERED: VANCOMYCIN 2 GM in IV D5W 500 ML IV SCH (20:00)
--- NOTE | 2018-05-25 20:51 | NUR ---
RECEIVED PT INTUBATED 7.5 ETT SECURED AT 26CM AT THE LIP. NO RESP DISTRESS, PT TOLERATING VENT SETTINGS. SX'D FOR MOD AMT OF THICK WHITE SECRETIONS. VENT ALARMS SET AND AUDIBLE. AMBU BAG AT BEDSIDE. VENT PLUGGED INTO RED OUTLET. WILL CONTINUE TO MONITOR. Addendum: 05/25/18 at 2050 by LUZMARIA LOPEZ RT Amended: Links added.
--- NOTE | 2018-05-25 21:00 | NUR ---
FINE GRADE OPERATOR NOTE LEFT MESSAGE TO STEP FATHER MR GUTIERREZ AT [phone] FOR TELEPHONE CONSENT OF TRACHEOSTOMY PLACEMENT TOMORROW. WILL TRY AGAIN LATER.
--- NOTE | 2018-05-25 21:45 | NUR ---
INTERNAL GRINDER TENDER NOTE LOVENOX HELD PER PROCEDURE IN THE AM. HELD LANTUS 40 UNITS DUE TO NPO STATUS AFTER MIDNIGHT. WILL MONITOR.
[2018-05-26] VITALS (35 sets, daily range): BP systolic 94–141; BP diastolic 52–87
[2018-05-26] MEDS: BLOOD SUGAR DIAGNOSTIC 1 EACH STRIP VI SCH ×5 (00:18→23:43)
[2018-05-26] MEDS: DAKINS QUARTER STRENGTH (0.125%) 480 ML BOTTLE TOP SCH ×3 (00:18→23:43)
[2018-05-26] MEDS: DILTIAZEM HCL 30 MG TABLET PO SCH ×5 (00:20→23:51)
[2018-05-26] MEDS: INSULIN REGULAR, HUMAN 100 UNIT/ML 3 ML VIAL SQ PRN ×3 (00:57→23:54)
[2018-05-26] MEDS: PROPOFOL 100 ML IV PRN ×8 (01:09→22:13)
[2018-05-26] MEDS: PIPERACILLIN /TAZOBACTAM 3.375 G in IV D5W 100 ML IV SCH ×3 (01:09→17:29)
[2018-05-26] MEDS: IPRATROPIUM NEB FS 0.5 MG/2.5 ML AMPUL.NEB NEB SCH ×4 (01:27→19:41)
[2018-05-26 05:29] LABS: CALCIUM, SERUM 8.9 mg/dL (8.5-10.1); MAGNESIUM 2.3 mg/dL (1.8-2.4); POTASSIUM 3.6 mmol/L (3.5-5.1)
--- NOTE | 2018-05-26 07:21 | NUR ---
FIBER OPTIC ASSEMBLY WORKER NOTE NO ACUTE DISTRESS NOTED. PT REMAINED STABLE DURING SHIFT. VENT SETTINGS WELL TOLERATED. ETT IN PLACE AND SECURED. SUCTIONED NEEDED. REPOSITIONED Q2H. NPO STATUS MAINTAINED. ALL NEEDS ATTENDED TO PROMPTLY. KEPT CLEAN AND DRY. GUZMAN CATHETER IN PLACE AND DRAINING BY GRAVITY. WILL ENDORSE TO NEXT SHIFT TO GET CONSENT FOR PROCEDURE TODAY.
[2018-05-26] MEDS: ALBUTEROL FS 2.5 MG/0.5 ML VIAL.NEB NEB SCH ×3 (08:34→19:41)
[2018-05-26] MEDS: MONTELUKAST SODIUM (10MG) 10 MG TABLET PO SCH (08:39)
[2018-05-26] MEDS: LACTULOSE 10 G/15 ML UDC (PYXIS) PO SCH ×2 (08:39→16:08)
[2018-05-26] MEDS: FUROSEMIDE 40 MG/4 ML VIAL IV SCH (08:39)
[2018-05-26] MEDS: ATORVASTATIN 40 MG TABLET PO SCH (08:39)
[2018-05-26] MEDS: Z GUARD REMEDY 2 OZ OINT TP PRN (08:40)
[2018-05-26] MEDS: AMIODARONE HCL 200 MG TABLET PO SCH (08:40)
[2018-05-26] MEDS: ISOSORBIDE DINITRATE (20MG) 20 MG TABLET PO SCH ×3 (08:40→17:28)
[2018-05-26] MEDS: METOPROLOL TARTRATE 25 MG TABLET PO SCH ×2 (08:40→21:24)
--- NOTE | 2018-05-26 09:00 | NUR ---
ICU/RN: Sedation vacation. Pt calm, cooperative, follows simple commands. No neuro deficits noted. Placed back on Diprivan for comfort, noted with facial grimacing.
[2018-05-26] MEDS: ENOXAPARIN SODIUM 60 MG/0.6 ML DISP.SYRIN SQ SCH ×2 (09:03→21:00)
[2018-05-26] MEDS: INSULIN GLARGINE, 100 UNIT/ML CARTRIDGE SQ SCH ×2 (09:05→21:00)
--- NOTE | 2018-05-26 10:00 | NUR ---
ICU/RN: Spoke with case worker, Dr Tan, pt is not stable for transfer for tracheostomy placement per insurance request. Still awaiting callback from family for consent. Per Dr Tan, will sign emergency consent if needed.
[2018-05-26] MEDS: GLUCERNA 1.2 1,000 ML BOTTLE GT PRN (10:48)
--- NOTE | 2018-05-26 11:30 | NUR ---
ICU/RN: Spoke with Dr Ruiz, informed that Dr Troibio and Dr Tan cleared pt for tracheostomy placement tomorrow and received emergency consent from both doctors. Shiley 8 XLT at bedside as requested by MD. Per MD NPO after midnight, hold next lovenox dose. For surgery tomorrow am.
[2018-05-26] MEDS ORDERED: POTASSIUM CHLORIDE 20 MEQ TAB.PRT.SR PO SCH (12:00)
[2018-05-26] MEDS: POTASSIUM CHLORIDE 20 MEQ POWDER PACKET GT SCH ×2 (12:10→13:45)
--- NOTE | 2018-05-26 15:00 | NUR ---
ICU/RN: Bed bath, wound care rendered, no distress noted. Tolerated well. Suctioned moderate amount of clear, thin secretions from ETT and orally.
--- NOTE | 2018-05-26 17:07 | NUR ---
RT NOTE: PATIENT RECEIVED ORALLY INTUBATION WITH 7.5 ETT TAPED AT 26 CM MID LIP LINE. SUCTIONED AND LAVAGED SMALL-MODERATE AMOUNT OF THICK HUI SECRETIONS. ALARMS VERIFIED AND AUDIBLE. VENT PLUGGED INTO RED OUTLET. AMBU BAG AT [facility].
[2018-05-26] MEDS: LACTOBACILLUS RHAMNOSUS GG 1 EACH CAP.SPRINK PO SCH (17:28)
--- NOTE | 2018-05-26 19:05 | NUR ---
ICU/RN: Pt comfortable in bed, no distress, sedated, breathing even and unlabored, afebrile. Tolerating TF, FC draining well to gravity. Care endorsed to PM RN for DAVIAN.
--- NOTE | 2018-05-26 19:42 | NUR ---
RECEIVED PT ORALLY INTUBATED WITH 7.5 ETT SECURED @ 26 CM AT THE LIP ON THE VENT WITH NOTED SETTINGS. PT IS SEDATED. PT TOLERATING VENT SETTINGS. BREATHING TX GIVEN PER MD'S ORDER , NO ADVERSE REACTION NOTED. NO RESPIRATORY DISTRESS NOTED AT THIS TIME. SUCTIONED MODERATE AMT OF THICK PALE YELLOW SECRETIONS. CUFF PRESSURE CHECKED BENZENE STILL UTILITY OPERATOR. VENT ALARMS SET AND AUDIBLE. AMBU BAG AT BEDSIDE. VENT PLUGGED INTO RED OUTLET. WILL CONTINUE TO MONITOR.
[2018-05-26] MEDS: VANCOMYCIN 1.75 GM in IV D5W 500 ML IV SCH (21:24)
[2018-05-27] VITALS (44 sets, daily range): BP systolic 100–151; BP diastolic 40–82
[2018-05-27] MEDS: PROPOFOL 100 ML IV PRN ×5 (00:41→11:09)
[2018-05-27] MEDS: IPRATROPIUM NEB FS 0.5 MG/2.5 ML AMPUL.NEB NEB SCH ×4 (01:09→19:47)
--- NOTE | 2018-05-27 01:15 | NUR ---
BRICKLAYER APPRENTICE NOTE RT CHANGED FIO2 FROM 60-50%. VENT SETTINGS WELL TOLERATED AND SATURATING 98%. WILL MONITOR.
[2018-05-27] MEDS: PIPERACILLIN /TAZOBACTAM 3.375 G in IV D5W 100 ML IV SCH ×3 (01:32→17:07)
[2018-05-27 05:17] LABS: BASOPHILS % (AUTO) 0.6 % (0.0-2.0); EOSINOPHILS % (AUTO) 3.5 % (0.0-6.0); HEMATOCRIT 33 % (39-51); HEMOGLOBIN 10.7 g/dL (13.5-17.5); LYMPHOCYTES # (AUTO) 0.9 /CMM (0.8-4.8); LYMPHOCYTES % (AUTO) 17.4 % (20.0-44.0); MEAN CORPUSCULAR HGB CONC 32 g/dl (31.0-36.0); MEAN CORPUSCULAR VOLUME 87 fL (80-96); MONOCYTES # (AUTO) 0.6 /CMM (0.1-1.30); MONOCYTES % (AUTO) 11.1 % (2.0-12.0); NEUTROPHILS # (AUTO) 3.7 /CMM (1.8-8.9); NEUTROPHILS % (AUTO) 67.4 % (43.0-81.0); PLATELET COUNT (AUTO) 131 /CMM (150-450); RED BLOOD CELL COUNT(AUTO) 3.77 MIL/uL (4.5-6.0); WHITE BLOOD COUNT (AUTO) 5.4 K/uL (4.3-11.0)
[2018-05-27 05:18] LABS: CREATININE 1.5 mg/dL (0.6-1.3); MAGNESIUM 2.2 mg/dL (1.8-2.4); POTASSIUM 3.3 mmol/L (3.5-5.1)
[2018-05-27] MEDS: DILTIAZEM HCL 30 MG TABLET PO SCH ×4 (06:00→23:50)
[2018-05-27] MEDS: BLOOD SUGAR DIAGNOSTIC 1 EACH STRIP VI SCH ×4 (06:07→23:44)
--- NOTE | 2018-05-27 07:10 | NUR ---
ENERGY EFFICIENCY SPECIALIST NOTE PT REMAINED STABLE DURING SHIFT. NO ACUTE DISTRESS NOTED. VENT SETTINGS WELL TOLERATED. SUCTIONED NEEDED. REPOSITIONED Q2H. ALL NEEDS ATTENDED TO PROMPTLY. NPO STATUS MAINTAINED AFTER MIDNIGHT. KEPT CLEAN AND DRY. WILL ENDORSE TO NEXT SHIFT FOR CONTINUITY OF CARE.
[2018-05-27] MEDS ORDERED: LIDOCAINE 1%-EPI 1:100,000 20 ML VIAL ONE (07:12)
[2018-05-27] MEDS ORDERED: ANESTHESIA TRAY IN PYXIS 1 EA TRAY MC ONE (07:12)
[2018-05-27] MEDS ORDERED: MIDAZOLAM 50 MG/10 ML VIAL ONE (07:23)
[2018-05-27] MEDS ORDERED: ROCURONIUM BROMIDE 50 MG/5 ML ONE ×2 (07:23→07:57)
[2018-05-27] MEDS: ALBUTEROL FS 2.5 MG/0.5 ML VIAL.NEB NEB SCH ×3 (07:35→19:47)
--- NOTE | 2018-05-27 08:16 | NUR ---
received pt from shift mgr, sedated on Diprivan at 30mcg, Aflutter controlled, on the vent, lungs congested, NPO, f/c good urine output, restraints on, pt taken to tracheostomy, v/s stable, no pain.
--- NOTE | 2018-05-27 08:30 | NUR ---
pt back from tracheostomy, no bleeding, v/s stable.
[2018-05-27] MEDS: ENOXAPARIN SODIUM 60 MG/0.6 ML DISP.SYRIN SQ SCH ×2 (09:00→21:33)
[2018-05-27] MEDS: LACTULOSE 10 G/15 ML UDC (PYXIS) PO SCH ×2 (09:00→17:00)
[2018-05-27] MEDS ORDERED: ENOXAPARIN SODIUM 60 MG/0.6 ML DISP.SYRIN SQ SCH (09:00)
[2018-05-27] MEDS: LACTOBACILLUS RHAMNOSUS GG 1 EACH CAP.SPRINK PO SCH ×2 (09:07→17:06)
[2018-05-27] MEDS: ATORVASTATIN 40 MG TABLET PO SCH (09:07)
[2018-05-27] MEDS: AMIODARONE HCL 200 MG TABLET PO SCH (09:08)
[2018-05-27] MEDS: ISOSORBIDE DINITRATE (20MG) 20 MG TABLET PO SCH ×3 (09:08→17:06)
[2018-05-27] MEDS: METOPROLOL TARTRATE 25 MG TABLET PO SCH ×2 (09:09→21:28)
[2018-05-27] MEDS: INSULIN GLARGINE, 100 UNIT/ML CARTRIDGE SQ SCH ×2 (09:28→21:44)
[2018-05-27] MEDS: MONTELUKAST SODIUM (10MG) 10 MG TABLET PO SCH (09:28)
--- NOTE | 2018-05-27 09:45 | NUR ---
pt cardioverted by Ekta Kiran ( HR [id number]) to NSR, v/s stable
[2018-05-27] MEDS ORDERED: POTASSIUM CHLORIDE 20 MEQ TAB.PRT.SR PO SCH (10:00)
[2018-05-27] MEDS: DAKINS QUARTER STRENGTH (0.125%) 480 ML BOTTLE TOP SCH ×2 (11:56→23:51)
[2018-05-27] MEDS ORDERED: LORAZEPAM INJ 2 MG/ML VIAL IV PRN (12:00)
--- NOTE | 2018-05-27 12:29 | NUR ---
pt is resting in the bed, s/p tracheostomy, NSR, off of sedation, lethargic, vs/ stable, no pain, pt turned and repositioned q2hrs.
--- NOTE | 2018-05-27 16:29 | NUR ---
pt is resting in the bed, lethargic, SR, tolerates feeding, good urine output, v/s stable, no pain, on restraints, pt cleaned, changed and repositioned q2hrs.
--- NOTE | 2018-05-27 19:30 | NUR ---
MANAGER LIFE SCIENCES:RECEIVED PT ALERT AND AWAKE. S/P TRACH. WT VENT SETTINGS ORDERED. TRACH SITE WT MINIMAL BLEEDING NOTED. CLEANED SITE AND SUCTIONED WT PINK TINGED SECRETIONS. NO ACUTE DISTRESS. SR ON CARE ADMINISTRATIVE TECH. COOLING MEASURES RENDERED FOR TEMP.= 100.3. ABLE TO FOLLOW SIMPLE COMMANDS. GTF STARTED BY DAY SHIFT AND TOLERATING WELL. F/C PATENT DRAINING TEA COLOR URINE TO GRAVITY. BILAT. SOFT WRIST RESTRAINTS IN PLACE FOR EPISODES OF TRYING TO REACH TUBINGS. SKIN CIRCULATION WNL & NO NEW SKIN BREAKDOWN. HOB AT 35 DEGREES. SAFETY PRECAUTION NOTED AT ALL TIMES.
--- NOTE | 2018-05-27 19:56 | NUR ---
RECEIVED ON VENT SUPPORT, NO RESP DISTRESS, PT TOLERATING VENT SETTINGS. SX'D FOR MOD AMT OF THICK WHITE SECRETIONS. VENT ALARMS SET AND AUDIBLE. AMBU BAG AT BEDSIDE. VENT PLUGGED INTO RED OUTLET. WILL CONTINUE TO MONITOR. Addendum: 05/27/18 at 6 by PAYAL PRESTON RT Amended: Links added.
[2018-05-27] MEDS: VANCOMYCIN 1.75 GM in IV D5W 500 ML IV SCH (21:29)
[2018-05-27] MEDS: GLUCERNA 1.2 1,000 ML BOTTLE GT PRN (21:33)
[2018-05-27] MEDS: ACETAMINOPHEN 325 MG TABLET PO PRN (22:05)
--- NOTE | 2018-05-27 22:10 | NUR ---
MOLDER BENCH: ACETAMINOPHEN GIVEN FOR AXILLARY & ORAL TEMP OF 100.6. COOLING MEASURES CONTINUED. WILL MONITOR EFFECTIVITY.
--- NOTE | 2018-05-27 23:30 | NUR ---
HELPDESK MANAGER: TEMP. STILL AT 100.3 AFTER COOLING MEASURES AND ACETAMINOPHEN ADMIN. WILL CONTINUE COOLING MEASURES. NO ACUTE DISTRESS NOTED.
[2018-05-27] MEDS: INSULIN REGULAR, HUMAN 100 UNIT/ML 3 ML VIAL SQ PRN (23:47)
[2018-05-28] VITALS (36 sets, daily range): BP systolic 118–165; BP diastolic 62–96
[2018-05-28] MEDS: IPRATROPIUM NEB FS 0.5 MG/2.5 ML AMPUL.NEB NEB SCH ×4 (01:57→19:22)
--- NOTE | 2018-05-28 02:00 | NUR ---
PEWTER FABRICATOR: FI02 DECREASED TO 50% BY RT PT WAS SATURATING WELL SINCE START OF THE SHIFT. WILL CONTINUE TO MONITOR.
[2018-05-28] MEDS: PIPERACILLIN /TAZOBACTAM 3.375 G in IV D5W 100 ML IV SCH ×3 (02:03→17:10)
[2018-05-28] MEDS: IV NS 0.9% 250 ML IV PRN (02:06)
--- NOTE | 2018-05-28 04:00 | NUR ---
SUPERVISOR METER REPAIR SHOP: FI02 DECREASED TO 40% WT NO ACUTE DISTRESS.
[2018-05-28 05:05] LABS: BASOPHILS % (AUTO) 0.5 % (0.0-2.0); EOSINOPHILS % (AUTO) 1.5 % (0.0-6.0); HEMATOCRIT 32 % (39-51); HEMOGLOBIN 10.4 g/dL (13.5-17.5); LYMPHOCYTES # (AUTO) 0.9 /CMM (0.8-4.8); LYMPHOCYTES % (AUTO) 12.3 % (20.0-44.0); MEAN CORPUSCULAR HGB CONC 33 g/dl (31.0-36.0); MEAN CORPUSCULAR VOLUME 87 fL (80-96); MONOCYTES # (AUTO) 0.8 /CMM (0.1-1.30); MONOCYTES % (AUTO) 10.9 % (2.0-12.0); NEUTROPHILS # (AUTO) 5.7 /CMM (1.8-8.9); NEUTROPHILS % (AUTO) 74.8 % (43.0-81.0); PLATELET COUNT (AUTO) 136 /CMM (150-450); RED BLOOD CELL COUNT(AUTO) 3.62 MIL/uL (4.5-6.0); WHITE BLOOD COUNT (AUTO) 7.7 K/uL (4.3-11.0)
[2018-05-28 05:18] LABS: CREATININE 1.1 mg/dL (0.6-1.3); POTASSIUM 3.2 mmol/L (3.5-5.1)
[2018-05-28] MEDS: INSULIN REGULAR, HUMAN 100 UNIT/ML 3 ML VIAL SQ PRN ×3 (05:53→17:10)
[2018-05-28] MEDS: DILTIAZEM HCL 30 MG TABLET PO SCH ×3 (05:55→17:06)
[2018-05-28] MEDS: BLOOD SUGAR DIAGNOSTIC 1 EACH STRIP VI SCH ×2 (05:55→12:22)
--- NOTE | 2018-05-28 06:30 | NUR ---
COURSE INSTRUCTOR: TEMP NOW WNL AT 98.8. TOLERATING FI02 AT 40% WT NO ACUTE DISTRESS. NO EVIDENCE OF DISCOMFORT OR C/O PAIN. ALL NEEDS MET.
--- NOTE | 2018-05-28 07:13 | NUR ---
RN INITIAL NOTES: Rec'd pt awake on bed. On MV via trach, sating at 100%. SR on telemonitor. Has GIGI midline, SL, patent & intact w/ no s/sx of infection/infiltration noted. Has NGT on R nares patent & intact, on cont GTF Glucerna 1.2 x 30 cc/hr, no residual noted upon checking. Has FC draining to adequate UOP. Provided comfort & safety measures. Bed kept low & in locked pos. Call light placed w/in reach. Will cont to monitor & attend pt needs.
[2018-05-28] MEDS: ALBUTEROL FS 2.5 MG/0.5 ML VIAL.NEB NEB SCH ×3 (08:04→19:22)
[2018-05-28] MEDS: POTASSIUM CHLORIDE 20 MEQ POWDER PACKET NG SCH ×3 (08:11→09:33)
[2018-05-28] MEDS: LACTOBACILLUS RHAMNOSUS GG 1 EACH CAP.SPRINK PO SCH ×2 (08:11→17:06)
[2018-05-28] MEDS: ATORVASTATIN 40 MG TABLET PO SCH (08:11)
[2018-05-28] MEDS: ISOSORBIDE DINITRATE (20MG) 20 MG TABLET PO SCH ×3 (08:12→17:06)
[2018-05-28] MEDS: AMIODARONE HCL 200 MG TABLET PO SCH (08:12)
[2018-05-28] MEDS: ACETAMINOPHEN 325 MG TABLET PO PRN (08:12)
[2018-05-28] MEDS: METOPROLOL TARTRATE 25 MG TABLET PO SCH (08:12)
[2018-05-28] MEDS: MONTELUKAST SODIUM (10MG) 10 MG TABLET PO SCH (08:12)
[2018-05-28] MEDS: Z GUARD REMEDY 2 OZ OINT TP PRN (08:13)
[2018-05-28] MEDS: ENOXAPARIN SODIUM 60 MG/0.6 ML DISP.SYRIN SQ SCH (08:14)
[2018-05-28] MEDS: INSULIN GLARGINE, 100 UNIT/ML CARTRIDGE SQ SCH ×2 (08:15→20:07)
[2018-05-28] MEDS: LACTULOSE 10 G/15 ML UDC (PYXIS) PO SCH ×2 (08:17→16:52)
[2018-05-28] MEDS ORDERED: POTASSIUM CHLORIDE 20 MEQ TAB.PRT.SR PO SCH (11:00)
--- NOTE | 2018-05-28 11:05 | NUR ---
Pt seen & examined by Dr. Toribio. Informed him that 60 meqs of K already given this AM. Per , give another 40 meqs KCl x 1. Addendum: 05/28/18 at 1842 by SHRAVAN ZAMAN RN Referred to Dr. Toribio re: previous CXR result regarding NGT placement - need to do KUB. Per , no need for KUB.
[2018-05-28] MEDS ORDERED: POTASSIUM CHLORIDE 20 MEQ POWDER PACKET GT ONE (11:30)
[2018-05-28] MEDS ORDERED: APIXABAN 5 MG TABLET PO SCH (11:30)
[2018-05-28] MEDS: DAKINS QUARTER STRENGTH (0.125%) 480 ML BOTTLE TOP SCH (12:22)
[2018-05-28] MEDS: VANCOMYCIN 1.75 GM in IV D5W 500 ML IV SCH (13:42)
--- NOTE | 2018-05-28 14:55 | NUR ---
RE: sliding scale - moderate ACHS, per Dr. Toribio may change to sliding scale moderate q6H.
[2018-05-28] MEDS ORDERED: DEXTROSE 50%-WATER 50 ML DISP.SYRIN IV PRN (15:00)
[2018-05-28] MEDS: RIVAROXABAN 15 MG TABLET PO SCH (17:09)
[2018-05-28] MEDS: BLOOD SUGAR DIAGNOSTIC 1 EACH STRIP IN SCH (17:10)
--- NOTE | 2018-05-28 18:39 | NUR ---
RN CLOSING NOTES: No significant changes noted w/in shift. Pt tolerated MV setting via trach, sating at 100% w/ PEEP at 5. Pt still SR on telemonitor. GIGI midline & L hand G20, SL, kept patent & intact w/ no s/sx of infection/infiltration noted. NGT on R nares kept patent & intact, tolerated cont GTF Glucerna 1.2 x 30 cc/hr, no residual noted w/in shift. FC kept draining to BSB w/ adequate UOP. Kept well rested. Needs attended. Bed kept low & in locked pos. Call light placed w/in reach. Will endorse to PM RN for DAVIAN.
--- NOTE | 2018-05-28 19:23 | NUR ---
PT RECEIVED TRACH SHILEY 8XLT. PT IS ON THE VENT WITH NOTED SETTINGS. PT IS AWAKE AND ALERT. BREATHING TX GIVEN , NO ADVERSE REACTION NOTED AT THIS TIME. VENT PLUGGED INTO RED OUTLET, VENT ALARMS ARE SET AND AUDIBLE WITH AMBU BAG@ BEDSIDE. GOVERNMENT PROFESSOR CUFF PRESSURE NOTED. EQUAL BILATERAL BS NOTED. SUCTIONED MODERATE AMOUNT OF PALE THICK YELLOW SECRETIONS. NO RESPIRATORY DISTRESS NOTED AT THIS TIME, WILL CONTINUE TO MONITOR.
--- NOTE | 2018-05-28 19:30 | NUR ---
HAND PICKER INITIAL SHIFT NOTES: RECEIVED PT IN BED, ALERT AND AWAKE. S/P TRACH 05/27/18, NOTED WITH SUTURES AND MINIMAL BLEEDING AT TRACH SITE. ON MECHANICAL VENT, SETTINGS ORDERED, TOLERATING WELL, FREE FROM ANY S/S OF RESPIRATORY DISTRESS. CLEANSED SITE AND SUCTIONED, NOTED WITH PINK TINGED SECRETIONS. SR ON BEDSIDE PIT FURNACE MELTER. PATIENT ABLE TO FOLLOW SIMPLE COMMANDS LIKE NODDING YES/NO. GTF ONGOING, NO GASTRIC RESIDUALS NOTED AT THIS TIME, WILL INCREASE RATE SLOWLY AND MONITOR FOR TOLERANCE. F/C PATENT DRAINING TEA COLOR URINE WITH SEDIMENTS TO GRAVITY. HOB AT 35 DEGREES, ON BARIMAXX BED, SAFETY PRECAUTION OBSERVED AT ALL TIMES. WILL CONTINUE TO CLOSELY MONITOR
[2018-05-29] VITALS (14 sets, daily range): BP systolic 144–167; BP diastolic 75–89
--- NOTE | 2018-05-29 | NUR ---
FINISHING RANGE OPERATOR NOTES NO GASTRIC RESIDUALS NOTED, TUBE FEEDING RATE INCREASED TO 40ML/HR FROM 30ML/HR. WILL MONITOR CLOSELY
[2018-05-29] MEDS: BLOOD SUGAR DIAGNOSTIC 1 EACH STRIP IN SCH ×5 (00:10→23:56)
[2018-05-29] MEDS: DAKINS QUARTER STRENGTH (0.125%) 480 ML BOTTLE TOP SCH ×3 (00:14→23:57)
[2018-05-29] MEDS: VANCOMYCIN 1.75 GM in IV D5W 500 ML IV SCH ×2 (00:15→12:56)
[2018-05-29] MEDS: IV NS 0.9% 250 ML IV PRN (00:22)
[2018-05-29] MEDS: IPRATROPIUM NEB FS 0.5 MG/2.5 ML AMPUL.NEB NEB SCH ×4 (01:16→19:38)
[2018-05-29] MEDS: GLUCERNA 1.2 1,000 ML BOTTLE GT PRN (01:54)
[2018-05-29] MEDS: DILTIAZEM HCL 30 MG TABLET PO SCH ×3 (01:56→17:35)
[2018-05-29] MEDS: PIPERACILLIN /TAZOBACTAM 3.375 G in IV D5W 100 ML IV SCH ×3 (02:31→17:32)
[2018-05-29 04:38] LABS: CALCIUM, SERUM 8.7 mg/dL (8.5-10.1); POTASSIUM 3.5 mmol/L (3.5-5.1)
[2018-05-29] MEDS: ACETAMINOPHEN 325 MG TABLET PO PRN (05:03)
[2018-05-29] MEDS: INSULIN REGULAR, HUMAN 100 UNIT/ML 3 ML VIAL SQ PRN (05:06)
--- NOTE | 2018-05-29 05:10 | NUR ---
TREE FALLER NOTES PATIENT WITH LOW GRADE TEMPERATURE OF 100.1 ORALLY, TYLENOL ADMINISTERED ORDERED
--- NOTE | 2018-05-29 06:18 | NUR ---
HOME HEALTH CARE PROVIDER NOTES PATIENT TRANSFERRED TO [facility], ROOM 110 VIA ACLS PROTOCOL. REPORT GIVEN TO LUZMARIA KAY FOR CONTINUITY OF CARE
--- NOTE | 2018-05-29 06:42 | NUR ---
TD RN NOTES RECEIVED PT FROM MILL PLATFORM SUPERVISOR MEÑO. NO RESPIRATORY DISTRESS NOTED UPON TRANSFER. V/S STABLE WITH TEMP OF 100.4. ON TELE MONITOR SR WITH BBB. IV ACCCESS PATENT AND INTACT. COLD COMPRESS AND GIVEN COLD WATER VIA NGT. WILL CONTINUE TO MONITOR PT CLOSELY.
[2018-05-29] MEDS: ALBUTEROL FS 2.5 MG/0.5 ML VIAL.NEB NEB SCH ×3 (07:17→19:38)
--- NOTE | 2018-05-29 07:31 | NUR ---
TD RN NOTES NO ACUTE CHANGES NOTED THROUGHOUT DURING THE SHIFT. PROVIDED COMFORT AND SAFETY. DUE MEDS GIVEN. WILL ENDORSE TO THE AM NURSE FOR CONTINUITY OF CARE.
--- NOTE | 2018-05-29 07:38 | NUR ---
INITIAL [facility] RN NOTE RCVD PT AWAKE AND ALERT SHOWING NO S/O DISTRESS, SR ON MONITOR. TRACH SITE WITH SUTURES IN PLACE, TRACH, ON VENT TOLERATING ORDERED SETTINGS WELL. GUZMAN CATH IN PLACE DRAINING CLOUDY, YELLOW URINE. DR. EPSTEIN CALLED THIS AM REQUESTING PT TO BE PLACED NPO FOR POSSIBLE PEG PLACEMENT. IV SITES C/D/I/PATENT. NO S/O INFILTRATION/PHLEBITIS OBSERVED UPON FLUSHING. WILL CONTINUE TO MONITOR PT FOR SAFETY AND COMFORT. BED IN LOW AND LOCKED POSITION. CALL LIGHT WITHIN REACH.
[2018-05-29 07:46] LABS: CALCIUM, SERUM 8.9 mg/dL (8.5-10.1); CREATININE 1.2 mg/dL (0.6-1.3); POTASSIUM 3.6 mmol/L (3.5-5.1)
[2018-05-29] MEDS: LACTULOSE 10 G/15 ML UDC (PYXIS) PO SCH ×2 (09:01→17:00)
[2018-05-29] MEDS: LACTOBACILLUS RHAMNOSUS GG 1 EACH CAP.SPRINK PO SCH ×2 (09:01→17:32)
[2018-05-29] MEDS: ATORVASTATIN 40 MG TABLET PO SCH (09:01)
[2018-05-29] MEDS: AMIODARONE HCL 200 MG TABLET PO SCH (09:02)
[2018-05-29] MEDS: MONTELUKAST SODIUM (10MG) 10 MG TABLET PO SCH (09:07)
[2018-05-29] MEDS: ISOSORBIDE DINITRATE (20MG) 20 MG TABLET PO SCH ×3 (09:08→17:33)
[2018-05-29] MEDS: INSULIN GLARGINE, 100 UNIT/ML CARTRIDGE SQ SCH ×2 (09:20→21:00)
--- NOTE | 2018-05-29 09:31 | NUR ---
PT PLACED ON SIMV 4, VT 700, PS 15, 40%, +[address] GUEVARA ORDERS. PT IS AWAKE AND ALERT. FOLLOWING COMMANDS. PT IS TOLERATING SIMV WELL. VENT ALARMS SET AND AUDIBLE PER POLICY. VENT PLUGGED INTO RED OUTLET. KINJALU BAG AT HOB. COLTON KAY AWARE. Addendum: 05/29/18 at 1008 by ALEXANDER MONTEMAYOR RT Amended: Links added.
[2018-05-29 10:33] LABS: ABG OXYGEN SATURATION 87.6 % (92.0-98.5); ABG PCO2 39.2 mmHg (35.0-45.0); ABG PH 7.457 (7.350-7.450); AaDO2 186.1 mmHg; COHb 0.2 % (0.5-1.5); MetHb 0.8 % (0.0-1.5); O2Hb 86.7 % (94.0-97.0); PEEP,BG 5 cm H2O; SITE, ABG Right Radial; VENT MODE, BG SIMV. PS 15; VT, ABG 700 mL
[2018-05-29 11:30] LABS: BASOPHILS # (AUTO) 0.1 /CMM (0.0-0.2); BASOPHILS % (AUTO) 1.6 % (0.0-2.0); HEMATOCRIT 30 % (39-51); HEMOGLOBIN 9.7 g/dL (13.5-17.5); LYMPHOCYTES # (AUTO) 1.1 /CMM (0.8-4.8); LYMPHOCYTES % (AUTO) 16.2 % (20.0-44.0); MEAN CORPUSCULAR HGB CONC 32 g/dl (31.0-36.0); MEAN CORPUSCULAR VOLUME 89 fL (80-96); MONOCYTES # (AUTO) 0.8 /CMM (0.1-1.30); MONOCYTES % (AUTO) 11.9 % (2.0-12.0); NEUTROPHILS # (AUTO) 4.6 /CMM (1.8-8.9); NEUTROPHILS % (AUTO) 68.3 % (43.0-81.0); PLATELET COUNT (AUTO) 128 /CMM (150-450); RED BLOOD CELL COUNT(AUTO) 3.38 MIL/uL (4.5-6.0); WHITE BLOOD COUNT (AUTO) 6.8 K/uL (4.3-11.0)
[2018-05-29] MEDS: RIVAROXABAN 15 MG TABLET PO SCH (17:00)
--- NOTE | 2018-05-29 17:29 | NUR ---
RT END OF THE SHIFT REPORT: PT. 47 Y OLD MALE REMAIN TRACH'D SHILEY # 8 XLT, WITH NOTED SETTINGS, ALARMS ARE SET AND FUNCTIONAL, NO RESP. DISTRESS NOTED T/O SHIFT EQUAL CHEST RISE NOTED. B/S BILATERALLY RALES SUX'D FOR MOD./ AMT OF WHITE SECRETIONS, PT. REMAIN STABLE. VENT CHANGES DONE AND PER DR. GUEVARA KEEP PT. ON SIMV MODE AND INCREASED FIO2 TO 50%. TX'S GIVEN INLINE JON. WELL NO ADVERSE REACTION NOTED. HME CHANGED AMBU BAG REMAIN AT THE BEDSIDE, VENT PLUGGED INTO RED OUTLET. REPORT WILL PASS TO PM SHIFT./ Addendum: 05/29/18 at 1731 by SHAUNNA MUNIZ RT Amended: Links added.
--- NOTE | 2018-05-29 18:59 | NUR ---
[facility] RN NOTE PT REMAINS STABLE TOLERATING ORDERED VENT SETTING AND TUBE FEEDING RATE. PT'S CARE ENDORSED TO PUPIL PERSONNEL WORKER RN FOR CONTINUITY OF CARE. BED IN LOW AND LOCKED POSITION. CALL LIGHT WITHIN REACH.
--- NOTE | 2018-05-29 19:30 | NUR ---
[facility] RN NOTE PT RECEIVED IN BED. A/O X1 AND ABLE TO NOD YES AND NO. ON MECH VENT WITH SETTINGS WELL TOLERATED AND SATURATING 96%. HOB ELEVATED. BREATHING UNLABORED. R NARE NGT IN PLACE AND NO RESIDUALS NOTED. PT NPO D/T PROCEDURE IN THE AM. IV GIGI MIDLINE CLEAN WITH FLUIDS INFUSING. GUZMAN CATHETER IN PLACE AND DRAINING BY GRAVITY. WILL CONTINUE TO MONITOR.
--- NOTE | 2018-05-29 20:21 | NUR ---
RECEIVED PT TRACHED SHLY 8 XLT ON VENT SIMV MODE. PT IS AWAKE AND ABLE TO FOLLOW COMMANDS. NO RESP DISTRESS. PT TOLERATING VENT SETTINGS. SX'D FOR SML AMT OF THICK WHITE SECRETIONS. VENT ALARMS SET AND AUDIBLE. AMBU BAG AT BEDSIDE. WILL CONTINUE TO MONITOR. Addendum: 05/29/18 at 2022 by LUZMARIA LOPEZ RT Amended: Links added.
[2018-05-30] VITALS (11 sets, daily range): BP systolic 117–180; BP diastolic 54–93
[2018-05-30] MEDS: ACETAMINOPHEN 325 MG TABLET PO PRN ×2 (00:06→18:22)
[2018-05-30] MEDS: IPRATROPIUM NEB FS 0.5 MG/2.5 ML AMPUL.NEB NEB SCH ×4 (01:10→19:40)
[2018-05-30] MEDS: DILTIAZEM HCL 30 MG TABLET PO SCH ×3 (01:34→17:03)
[2018-05-30] MEDS: PIPERACILLIN /TAZOBACTAM 3.375 G in IV D5W 100 ML IV SCH ×3 (01:34→17:00)
[2018-05-30] MEDS: BLOOD SUGAR DIAGNOSTIC 1 EACH STRIP IN SCH ×4 (05:55→23:50)
[2018-05-30 06:37] LABS: BASOPHILS % (AUTO) 0.5 % (0.0-2.0); EOSINOPHILS % (AUTO) 2.3 % (0.0-6.0); HEMATOCRIT 31 % (39-51); HEMOGLOBIN 10.2 g/dL (13.5-17.5); LYMPHOCYTES # (AUTO) 0.8 /CMM (0.8-4.8); MEAN CORPUSCULAR HGB CONC 32 g/dl (31.0-36.0); MEAN CORPUSCULAR VOLUME 89 fL (80-96); MONOCYTES # (AUTO) 0.7 /CMM (0.1-1.30); MONOCYTES % (AUTO) 11.8 % (2.0-12.0); NEUTROPHILS # (AUTO) 4.6 /CMM (1.8-8.9); NEUTROPHILS % (AUTO) 73.4 % (43.0-81.0); PLATELET COUNT (AUTO) 128 /CMM (150-450); RED BLOOD CELL COUNT(AUTO) 3.53 MIL/uL (4.5-6.0); WHITE BLOOD COUNT (AUTO) 6.3 K/uL (4.3-11.0)
[2018-05-30 06:56] LABS: CALCIUM, SERUM 8.9 mg/dL (8.5-10.1); CREATININE 1.4 mg/dL (0.6-1.3); POTASSIUM 3.6 mmol/L (3.5-5.1)
[2018-05-30] MEDS: VANCOMYCIN 1.75 GM in IV D5W 500 ML IV SCH ×2 (07:32→19:43)
[2018-05-30] MEDS: ALBUTEROL FS 2.5 MG/0.5 ML VIAL.NEB NEB SCH ×3 (07:32→19:40)
--- NOTE | 2018-05-30 07:41 | NUR ---
[facility] RN NOTE PT REMAINED STABLE DURING SHIFT. ALL NEEDS ATTENDED TO PROMPTLY. KEPT CLEAN AND DRY. NO ACUTE DISTRESS NOTED. SUCTIONED NEEDED. REPOSITIONED Q2H. HOB REMAINED ELEVATED AND ON ASPIRATION PRECAUTIONS. REMAINED NPO. NO C/O PAIN OR DISCOMFORT NOTED. WILL ENDORSE TO NEXT SHIFT FOR CONTINUITY OF CARE.
[2018-05-30] MEDS: LACTULOSE 10 G/15 ML UDC (PYXIS) PO SCH ×2 (08:00→16:51)
[2018-05-30] MEDS: LACTOBACILLUS RHAMNOSUS GG 1 EACH CAP.SPRINK PO SCH ×2 (08:00→16:51)
[2018-05-30] MEDS: ATORVASTATIN 40 MG TABLET PO SCH (08:00)
[2018-05-30] MEDS: MONTELUKAST SODIUM (10MG) 10 MG TABLET PO SCH (08:00)
[2018-05-30] MEDS: ISOSORBIDE DINITRATE (20MG) 20 MG TABLET PO SCH ×3 (08:31→16:51)
[2018-05-30] MEDS: AMIODARONE HCL 200 MG TABLET PO SCH (08:32)
--- NOTE | 2018-05-30 08:35 | NUR ---
DR EPSTEIN NOTIFIED OF PATIENT'S BP OF 180/[address] EPSTEIN, OK TO GIVE SCHEDULED BP MEDS WITH SMALL AMOUNTS OF WATER.DR EPSTEIN NOTIFIED THAT PATIENT NPO AND OF PLANS PER PEG INSERTION PER DR EPSTEIN, RESCHEDULE PEG INSERTION AND DO SPEECH EVAL FIRST OR NOTIFIED. DR KNOX PAGED, PER DR EPSTEIN, PLACE PATIENT ON CPAP MODE. PATIENT PLACED ON CPAP MODE PER ORDERS AT 0825 . NONLABORED BREATHING NOTED. SPO2 GREATER THAN 93%
--- NOTE | 2018-05-30 10:12 | NUR ---
PER DR GUEVARA, STAT ABG
[2018-05-30] MEDS: INSULIN GLARGINE, 100 UNIT/ML CARTRIDGE SQ SCH ×2 (10:14→20:30)
--- NOTE | 2018-05-30 10:15 | NUR ---
[place] HELD PATIENT IS NPO. BS 169
[2018-05-30 10:35] LABS: ABG BASE EXCESS 1.1 mmol/L; ABG PCO2 40.5 mmHg (35.0-45.0); ABG PO2 66.4 mmHg (75.0-100.0); AaDO2 244.5 mmHg; COHb 0.2 % (0.5-1.5); MetHb 0.3 % (0.0-1.5); O2Hb 91.5 % (94.0-97.0); SITE, ABG Right Radial; VENT MODE, BG CPAP 5 PS15
--- NOTE | 2018-05-30 11:34 | NUR ---
DR EPSTEIN NOTIFIED OF SWALLOW EVALUATION FAILURE PER DR EPSTEIN, CONTINUE WITH PLANS OF PEG INSERTION WITH DR LISETTE KNOX NOTIFIED CONSENT IN CHART DR GUEVARA NOTIFIED OF ABG RESULTS AND PLAN OF CARE
[2018-05-30] MEDS: DAKINS QUARTER STRENGTH (0.125%) 480 ML BOTTLE TOP SCH ×2 (12:07→23:51)
--- NOTE | 2018-05-30 12:18 | NUR ---
PER DR KNOX, USE PEG FOR WATER AND MEDS IN 4 HOURS USE PEG FOR TUBE FEEDING TOMORROW DAILY CLEANING AND DRESSING AT [facility]
--- NOTE | 2018-05-30 14:15 | NUR ---
PATIENT BACK TO CPAP MODE. DR GUEVARA NOTIFIED THAT PATIENT WAS PLACED ON AC MODE PER DR HAIR. PATIENT NOW AWAKE AND FOLLOWING COMMANDS. WILL CONTINUE TO MONITOR
[2018-05-30] MEDS: RIVAROXABAN 15 MG TABLET PO SCH (17:05)
--- NOTE | 2018-05-30 18:35 | NUR ---
RT END OF THE SHIFT REPORT: PT. 47 Y OLD MALE REMAIN TRACH'D SHILEY # 8 XLT WITH NOTED SETTINGS, ALARMS ARE SET AND FUNCTIONAL, NO RESP. DISTRESS NOTED T/O SHIFT, EQUAL CHEST RISE NOTED. B/S BILATERALLY RHONCHI SUX'D FOR LARGE AMT OF BROWNISH SECRETIONS, PT. REMAIN STABLE. VENT CHANGES DONE PER MD ORDER, ON CPAP HME CHANGED. JON. WELL AMBU BAG REMAIN AT THE BEDSIDE, VENT PLUGGED INTO RED OUTLET. REPORT WILL PASS TO PM SHIFT. Addendum: 05/30/18 at 1837 by SHAUNNA MUNIZ RT Amended: Links added.
--- NOTE | 2018-05-30 19:10 | NUR ---
TYLENOL ADMINISTERED FOR A TEMP OF 100F, TEMP REASSESSED NOW AND NOTED TO BE 101.3 F. COLD BATH GIVEN TO PATIENT WELL ICE PACKS WILL CONTINUE TO MONITOR
--- NOTE | 2018-05-30 19:20 | NUR ---
UNABLE TO OBTAIN ANOTHER IV ACCESS, ATTEMPTED X4. CURRENT MIDLINE PATENT AND INTACT WITH ATB RUNNING WILL ENDORSE TO NEXT SHIFT
--- NOTE | 2018-05-30 19:40 | NUR ---
OXYGEN SATURATION NOTED TO BE DROPPING TO 86% ON CURRENT CPAP MODE. LABORED BREATHING NOTED. PATIENT DENYING PAIN AND MOUTHING "NO" PATIENT SUCTIONED PATIENT NOTED TO BE SINUS TACHYCARDIA WITH HR 120S. ROXANNERT, AT BEDSIDE FOR BREATHING TX. NICKI RN, AT BEDSIDE. ENDORSED TO NIGHT RN
--- NOTE | 2018-05-30 20:00 | NUR ---
RN NOTES PATIENT WITH TEMP 102.1, TYLENOL ADMINISTERED PRIOR TO START OF SHIFT. ICE PACKS APPLIED, FAN TURNED OFF. WILL MONITOR CLOSELY
--- NOTE | 2018-05-30 20:13 | NUR ---
PT TRACHED ON CPAP MODE 50% FIO2, AWAKE ALERT. PT TACHYPNEIC LABORED BREATHING LOW O2 SAT 88%. PLACED PT BACK ON SIMV MODE. MEDICAL OFFICER AV NOTIFIED AND MEÑO RN NOTIFIED. WILL CONTINUE TO MONITOR.
--- NOTE | 2018-05-30 20:31 | NUR ---
RN NOTES BLOOD SUGAR = 164. PER DR CHRIS'S ORDERS, TUBE FEEDING TO RESUME ON 05/31/18. WILL HOLD LONG ACTING INSULIN AT THIS TIME, AND WILL RECHECK BLOOD SUGAR @ 0000 FOR SCHEDULED Q6H ACCUCHECKS WITH REGULAR INSULIN PER SS.
[2018-05-31] VITALS: BP_SYST 157; BP_SYST 158; BP_DIAS 86
[2018-05-31 00:57] LABS: ABG BASE EXCESS 1.3 mmol/L; ABG OXYGEN SATURATION 90.5 % (92.0-98.5); ABG PCO2 40.1 mmHg (35.0-45.0); ABG PH 7.426 (7.350-7.450); ABG PO2 59.8 mmHg (75.0-100.0); AaDO2 251.6 mmHg; COHb 0.3 % (0.5-1.5); MetHb 0.3 % (0.0-1.5); PEEP,BG 5 cm H2O; SITE, ABG Right Radial
--- NOTE | 2018-05-31 00:59 | NUR ---
ABG DONE. NOTIFIED RN WITH THE RESULT.
[2018-05-31] MEDS: IPRATROPIUM NEB FS 0.5 MG/2.5 ML AMPUL.NEB NEB SCH ×4 (01:10→19:35)
[2018-05-31] MEDS: ACETAMINOPHEN 325 MG TABLET PO PRN (01:21)
[2018-05-31] MEDS: PIPERACILLIN /TAZOBACTAM 3.375 G in IV D5W 100 ML IV SCH ×3 (01:21→18:11)
[2018-05-31] MEDS: DILTIAZEM HCL 30 MG TABLET PO SCH ×3 (01:22→17:42)
[2018-05-31 04:00] VITALS: BP 137/77
[2018-05-31] MEDS: BLOOD SUGAR DIAGNOSTIC 1 EACH STRIP IN SCH ×3 (05:55→17:46)
--- NOTE | 2018-05-31 06:00 | NUR ---
RN NOTES DR EPSTEIN MADE AWARE THAT PATIENT DID NOT TOLERATE CPAP MODE, PLACED BACK ON SIMV WITH SOME IMPROVEMENT, BUT STILL PERIODICALLY DESATTING TO 85-89% WHILE ON FIO2 OF 50%. DR EPSTEIN ALSO NOTIFIED REGARDING EPISODE OF LARGE, WATERY STOOL. OBTAINED ORDER FOR RECTAL TUBE, INSERTYED, WATERY BROWN STOOL OUTPUT NOTED. PER DR EPSTEIN, OBTAIN CXR AND SEND STOOL FOR CDIFF
[2018-05-31 06:37] LABS: BASOPHILS % (AUTO) 0.4 % (0.0-2.0); EOSINOPHILS % (AUTO) 1.9 % (0.0-6.0); HEMATOCRIT 28 % (39-51); HEMOGLOBIN 9.2 g/dL (13.5-17.5); LYMPHOCYTES # (AUTO) 0.9 /CMM (0.8-4.8); LYMPHOCYTES % (AUTO) 11.7 % (20.0-44.0); MEAN CORPUSCULAR HGB CONC 33 g/dl (31.0-36.0); MEAN CORPUSCULAR VOLUME 88 fL (80-96); MONOCYTES # (AUTO) 0.8 /CMM (0.1-1.30); NEUTROPHILS # (AUTO) 5.7 /CMM (1.8-8.9); PLATELET COUNT (AUTO) 151 /CMM (150-450); RED BLOOD CELL COUNT(AUTO) 3.19 MIL/uL (4.5-6.0); WHITE BLOOD COUNT (AUTO) 7.6 K/uL (4.3-11.0)
[2018-05-31 06:46] LABS: CALCIUM, SERUM 8.7 mg/dL (8.5-10.1); CREATININE 1.7 mg/dL (0.6-1.3); POTASSIUM 3.8 mmol/L (3.5-5.1)
[2018-05-31] MEDS: ALBUTEROL FS 2.5 MG/0.5 ML VIAL.NEB NEB SCH ×3 (07:05→19:35)
--- NOTE | 2018-05-31 07:05 | NUR ---
RT PT RECEIVED WITH A Patterns 8 XLT TRACH NO THE VENT WITH NOTED SETTINGS. PT IS AWAKE AND ALERT. VENT ALARMS ARE SET AND AUDIBLE WITH BVM BY BEDSIDE. INFORMATION SYSTEMS AUDIT MANAGER CUFF PRESSURE NOTED. VENT IS PLUGGED INTO RED OUTLET. PT SX'D MODERATE THICK PALE YELLOW SECRETIONS. TX GIVEN INLINE WITH NO ADVERSE REACTIONS. NO RESPIRATORY DISTRESS NOTED AT THIS TIME, WILL CONTINUE TO MONITOR. Addendum: 05/31/18 at 0818 by ALBERTA JONES RT Amended: Links added.
--- NOTE | 2018-05-31 07:10 | NUR ---
RN INITIAL NOTES: Rec'd pt awake on bed, not in any distress, A/O x1. On MV via trach, SIMV mode at this time d/t episode desaturation last night. SR on telemonitor. Has GIGI midline w/ 07/05 NS + 20 meq KCL x 65 cc/hr infusing well. Has GT, to start GTF Glucerna 1.2. Has FC draining to BSB. Provided comfort & safety measures. Bed kept low & in locked pos. Call light placed w/in reach. Will cont. to monitor & attend pt needs.
--- NOTE | 2018-05-31 07:16 | NUR ---
RN CLOSING NOTES STOOL CDIFF CANCELED, PATIENT RECEIVED LACTULOSE 1700 ON 05/30/2018
[2018-05-31] MEDS: VANCOMYCIN 1.75 GM in IV D5W 500 ML IV SCH ×2 (07:44→18:11)
[2018-05-31 08:00] VITALS: BP 151/87
[2018-05-31 08:09] LABS: ABG BASE EXCESS 0.2 mmol/L; ABG OXYGEN SATURATION 89.6 % (92.0-98.5); ABG PO2 58.3 mmHg (75.0-100.0); AaDO2 253.2 mmHg; COHb 0.3 % (0.5-1.5); MetHb 0.7 % (0.0-1.5); O2Hb 88.7 % (94.0-97.0); PEEP,BG 5 cm H2O; SITE, ABG Right Radial; VT, ABG 700 mL
[2018-05-31] MEDS: LACTULOSE 10 G/15 ML UDC (PYXIS) PO SCH ×2 (08:14→17:00)
[2018-05-31] MEDS: MONTELUKAST SODIUM (10MG) 10 MG TABLET PO SCH (08:15)
[2018-05-31] MEDS: LACTOBACILLUS RHAMNOSUS GG 1 EACH CAP.SPRINK PO SCH ×2 (08:15→17:39)
[2018-05-31] MEDS: ATORVASTATIN 40 MG TABLET PO SCH (08:15)
[2018-05-31] MEDS: AMIODARONE HCL 200 MG TABLET PO SCH (08:17)
[2018-05-31] MEDS: ISOSORBIDE DINITRATE (20MG) 20 MG TABLET PO SCH ×3 (08:17→17:39)
[2018-05-31] MEDS: INSULIN GLARGINE, 100 UNIT/ML CARTRIDGE SQ SCH ×2 (08:18→22:29)
[2018-05-31] MEDS: Z GUARD REMEDY 2 OZ OINT TP PRN (08:19)
[2018-05-31] MEDS ORDERED: GLUCERNA 1.2 1,000 ML BOTTLE NG PRN (08:30)
--- NOTE | 2018-05-31 09:30 | NUR ---
Pt seen & examined by Dr. Tan.
--- NOTE | 2018-05-31 09:51 | NUR ---
RT PT WAS COMPLAINING OF NECK PAIN AROUND TRACH TIE LOCATION, UPON OBSERVING THERE WAS NOTICEABLE SKIN CUTS ON THE LEFT AND RIGHT SIDE OF PT NECK FROM THE PREVIOUS NECK TIE. NEW TRACH TIE WAS PUT PUT IN PLACE. RAHUL CHENEY NOTIFIED AND AWARE. Addendum: 05/31/18 at 1151 by ALBERTA JONES RT Amended: Links added.
[2018-05-31] MEDS ORDERED: DILT30TA14 PO (09:59)
[2018-05-31] MEDS ORDERED: Rivaroxaban PO (09:59)
--- NOTE | 2018-05-31 10:04 | NUR ---
Pt seen & examined by Dr. Toribio. made aware of new wounds on around pt's neck. Wound consult ordered. Initial wound care done. Shaila Ga RN informed. Addendum: 05/31/18 at 1008 by SHRAVAN ZAMAN RN Addendum: Wound photos taken & placed in the chart.
--- NOTE | 2018-05-31 10:44 | NUR ---
WOUND CARE CONSULT: PT SEEN FOR WOUNDS UNDER TRACH TIE. DEFER TO PLASTIC SURGERY TEAM ALREADY ON CASE FOR WOUND TREATMENT PLAN. WILL SEE PRN. Addendum: 05/31/18 at 1046 by VIV SHUKLA WNDNU Amended: Links added.
[2018-05-31 12:00] VITALS: BP 150/75
[2018-05-31] MEDS: DAKINS QUARTER STRENGTH (0.125%) 480 ML BOTTLE TOP SCH (12:37)
[2018-05-31] MEDS: INSULIN REGULAR, HUMAN 100 UNIT/ML 3 ML VIAL SQ PRN ×2 (12:37→17:46)
[2018-05-31 16:00] VITALS: BP 145/78
--- NOTE | 2018-05-31 17:00 | NUR ---
Rec'd call from Chelsey, [facility]. Awaiting for bariatric bed. Per Chelsey, they will call [facility] for ETA. Addendum: 05/31/18 at 1824 by SHRAVAN ZAMAN RN Addendum: Chelsey made aware that pt is currently at FiO2 50% as pt is not tolerating Fio2 of 40%, sating <90's. Addendum: 05/31/18 at 1833 by SHRAVAN ZAMAN RN [facility] # [phone] Per GARY, as per Brooke SHANE, pt will not be DC today.
[2018-05-31] MEDS: RIVAROXABAN 15 MG TABLET PO SCH (17:40)
--- NOTE | 2018-05-31 19:00 | NUR ---
RN CLOSING NOTES: Pt is A/O x2-3, not in any distress. Pt able to tolerate MV via trach, SIMV mode Fio2 increased to 50% d/t episode of <90's saturation while on 40%. SR on telemonitor. Has GIGI midline kept patent & intact w/ 1/2 NS + 20 meq KCL x 65 cc/hr infusing well. Pt able to tolerate GTF Glucerna 1.2 x 40cc/hr. FC kept draining to BSB w/ adequate UOP. Rectal tube kept patent & intact, still w/ liquidy stool. MRSA nares sent per protocol. Kept well rested. Needs attended. Bed kept low & in locked pos. Call light placed w/in reach. Endorsed to PM RN for DAVIAN.
--- NOTE | 2018-05-31 19:45 | NUR ---
[facility]/WOOD MACHINE CARVER RECIEVED REPORT FROM DAY NURSE. PT IS ALERT X 2. PT HAS TRACH TOLERATING VENT SETTINGS. PT HAS G/TUBE TOLERATING FEEDING. PT HAS GUZMAN DRAING AND FLEXSEAL DRAINING WELL. PT WOUNDS THAT ARE ADDRESSED ON FLOWSHEET. PT ASLO HAS MIDLINE WITH IVF AND IVPB. PT WAS TURNED AND REPOSITIONED FOR COMFORT AND CARE.
--- NOTE | 2018-05-31 19:55 | NUR ---
[facility]/MASK LAYOUT DESIGNER CASE MGER WAS CALLED AND NOTICED ABOUT PT GOING TO NURSING FACILITY [facility]
[2018-05-31 20:00] VITALS: BP 153/76
--- NOTE | 2018-05-31 20:15 | NUR ---
[facility]/SOURCE WATER PROTECTION SPECIALIST CALLED GAVE REPORT TO RECEIVING FACILITY, GEOVANNA NURSE WHO RECIEVED REPORT.
--- NOTE | 2018-05-31 20:30 | NUR ---
[facility]/FOOD AND NUTRITION TEACHER MED REC WAS DONE, DISCHARGE PAPERS ARE READY FOR PT TO GO OUT.
[2018-06-01] MEDS: DAKINS QUARTER STRENGTH (0.125%) 480 ML BOTTLE TOP SCH (00:07)
[2018-06-01] MEDS: BLOOD SUGAR DIAGNOSTIC 1 EACH STRIP IN SCH (00:07)
[2018-06-01 00:10] VITALS: BP 147/85
--- NOTE | 2018-06-01 00:15 | NUR ---
[facility]/MSC PT HAS TEMP, A/C IN ROOM IS BROKEN ROOM IS HOT. PT HAS TEMP 101.0 TYLENOL 650 MG GIVEN G.TUBE. NOTIFIED CASE MGER MADE AWARE ALSO CONTACT CASE MGER ABOUT TEMP CALLED RECEIVING FACILITY OK TO TAKE PT.
--- NOTE | 2018-06-01 00:45 | NUR ---
[facility]/SHIPPING HELPER CASE MGER CALLED BACK SAID OK TO TRANSFER THIS PT.
--- NOTE | 2018-06-01 01:13 | NUR ---
[facility]/SHEET CATCHER PT OUT TO FACIALLY WITH ACLS AND RT
[2018-06-01 01:23] VITALS: BP 147/85
[2018-06-01] MEDS: DILTIAZEM HCL 30 MG TABLET PO SCH (01:23)
[2018-06-01] MEDS: ACETAMINOPHEN 325 MG TABLET PO PRN (01:23)
== END 2018-06-01 00:50 | DRG 4 ==
LOC: ER 10:56 → ICU 13:25 → TELE-TD 05-29 06:18
PROVIDERS: ADMIT Internal Medicine; ATTEND Internal Medicine
PROC: 5A1955Z Respiratory Ventilation, Greater than 96 Consecutive Hours (ICD-10-PCS; principal; 2018-05-09)
PROC: 05H633Z Insertion of Infusion Device into Left Subclavian Vein, Percutaneous Approach (ICD-10-PCS; principal; 2018-05-09)
PROC: 0BH17EZ Insertion of Endotracheal Airway into Trachea, Via Natural or Artificial Opening (ICD-10-PCS; principal; 2018-05-09)
PROC: 5A09357 Assistance with Respiratory Ventilation, Less than 24 Consecutive Hours, Continuous Positive Airway Pressure (ICD-10-PCS; principal; 2018-05-09)
PROC: B547ZZA Ultrasonography of Left Subclavian Vein, Guidance (ICD-10-PCS; principal; 2018-05-09)
PROC: 0KBN0ZZ Excision of Right Hip Muscle, Open Approach (ICD-10-PCS; 2018-05-11)
PROC: 0JBL0ZZ Excision of Right Upper Leg Subcutaneous Tissue and Fascia, Open Approach (ICD-10-PCS; 2018-05-11)
PROC: 0B110F4 Bypass Trachea to Cutaneous with Tracheostomy Device, Open Approach (ICD-10-PCS; 2018-05-27)
PROC: 0DH63UZ Insertion of Feeding Device into Stomach, Percutaneous Approach (ICD-10-PCS; 2018-05-30)
DX: J96.21 Acute and chronic respiratory failure with hypoxia (principal); G93.41 Metabolic encephalopathy; E87.4 Mixed disorder of acid-base balance; J18.9 Pneumonia, unspecified organism; E46 Unspecified protein-calorie malnutrition; N17.9 Acute kidney failure, unspecified; I11.0 Hypertensive heart disease with heart failure; I27.81 Cor pulmonale (chronic); R13.10 Dysphagia, unspecified; E11.22 Type 2 diabetes mellitus with diabetic chronic kidney disease; E11.65 Type 2 diabetes mellitus with hyperglycemia; I48.0 Paroxysmal atrial fibrillation; J44.1 Chronic obstructive pulmonary disease with (acute) exacerbation; J96.22 Acute and chronic respiratory failure with hypercapnia; N18.9 Chronic kidney disease, unspecified; D64.9 Anemia, unspecified; E78.5 Hyperlipidemia, unspecified; E87.6 Hypokalemia; K21.9 Gastro-esophageal reflux disease without esophagitis; Z79.4 Long term (current) use of insulin; Z79.899 Other long term (current) drug therapy; S31.819A Unspecified open wound of right buttock, initial encounter; X58.XXXA Exposure to other specified factors, initial encounter; Y92.9 Unspecified place or not applicable; E66.2 Morbid (severe) obesity with alveolar hypoventilation; I48.92 Unspecified atrial flutter; J44.0 Chronic obstructive pulmonary disease with (acute) lower respiratory infection; I13.0 Hypertensive heart and chronic kidney disease with heart failure and stage 1 through stage 4 chronic kidney disease, or unspecified chronic kidney disease; I50.9 Heart failure, unspecified; J98.11 Atelectasis
CPT/HCPCS: 31720; 36415; 36569; 36600; 43246; 71045-TC; 80048-TC; 80076-TC; 80202-TC; 80305; 82803-TC; 82962-TC; 83735-TC; 83880; 84478-TC; 84484-TC; 85025-TC; 85610-TC; 85730-TC; 86850-TC; 87070-TC; 87081-TC; 92521; 93307-TC; 94002-TC; 94003-TC; 94660; 94760-TC; 99082-TC; A4216; A4217; A4606; A6253; A6402; A6403; G0378; J0696; J1160; J1170; J1650; J1815; J1940; J1956; J2250; J2543; J2704; J2920; J2930; J3370; J3480; J3490; J7030; J7040; J7050; J7060; J7120; Z7610